=== PATIENT | male | born 1940 | race Caucasian/White ===

== ENCOUNTER 2016-06-29 13:02 | Inpatient (IN) | payer MEDICARE, BC ==
[~2016-06-29] VITALS: Ht 177.8 cm; Wt 102.5 kg
[~2016-06-29 13:02] MED LIST: *BLDWK7; /METO25TAB PO; /PANT40TA PO; /TAMS4CA PO; /TIOT18INH INH; ACET-654 PO; ACET500C; ACET65TA PO; ALBOTERNEB INHALATION; ALBUTEROL INHALATION; ALDA50TA2 PO; ALEV220C2 PO; ALEV220T22 PO; ASAC800T2 PO; ASPI325T PO; ASPI81TA45 PO; ATROVENTIN INHALATION; Asacol OR; CIPR25SS PO; CIPR500T4 OR; COLA100C2; COLA100C2 PO; COMBAER6 INH; DEMA10TA PO; DEMA20TA PO; DIGO0.126 OR; DOCU10CA PO; DOXY100T PO; DOXYCYC100 PO; FLAG500T OR; FLAG500T PO; FLOM5CAP PO; FLOMAX 0.4 PO; FLON0.05; FLONASESPR NASAL; FLOVENT110 PO; FLUT11IN; FLUT11IN INH; FLUT22IN; FURO40TA2 PO; IBUP600T26 PO; IBUP80TA PO; INSP25TA PO; INSPRA PO; K-TA10TA PO; KEFL500C7 PO; LASI40TA PO; LASI80TA OR; LOPR50TA PO; MACR100C3 PO; MILKSUS OR; MULTIVIT PO; MYLI40DR PO; NAPR250T OR; NAPROSY375 PO; NITR0.6S SL; NITR4TASL SL; OXYC1TAB55 PO; PERC5TAB8 OR; POTA10TA34 PO; PROV90AE INH; PROVENTILI PO; RANI150C PO; RANI1TAB6 PO; SPIR1CAP INH; SPIRIVA; SUDAFED30 PO; THEODUR PO; TIOT18INH INH; TORS5TAB OR; TYLE167L PO; TYLE325T5 PO; VENTAER IN; VICO5TAB; ZANT150T; ZANTAC150 PO; ZEBE5TAB OR; ZEBETA PO; ZITHROZPAK PO; ZOFR8TAB OR; [UNRECOGNIZED DRUG - CODE] PO; [UNRECOGNIZED DRUG - OTHER] PO; antibiotic PO; beano PO
[2016-06-29] MEDS ORDERED: ONDANSETRON 4MG/2ML VIAL (J2405) As Ordered ONE (15:17)
[2016-06-29] MEDS ORDERED: GASTROGRAFIN SOLUTION 30ML (Q9963) As Ordered ONE (15:17)
[2016-06-29 15:42] LABS: ALBUMIN 3.8 GM/DL (3.2-5.2); ALBUMIN/GLOBULIN RATIO 0.97 (1.00-1.93); ALKALINE PHOSPHATASE 100 U/L (45-117); ALT/SGPT 14 U/L (12-78); ANION GAP 6 MEQ/L (8-16); AST/SGOT 15 U/L (15-37); BILIRUBIN,DIRECT 0.2 MG/DL (0.0-0.2); BILIRUBIN,TOTAL 0.8 MG/DL (0.2-1.0); BLOOD UREA NITROGEN 24 MG/DL (7-18); CALCIUM LEVEL 9.3 MG/DL (8.8-10.2); CARBON DIOXIDE LEVEL 29 MEQ/L (21-32); CHLORIDE LEVEL 106 MEQ/L (98-107); CREATININE FOR GFR 1.19 MG/DL (0.70-1.30); GLOMERULAR FILTRATION RATE > 60.0 (>42); GLUCOSE, FASTING 121 MG/DL (83-110); POTASSIUM SERUM 4.3 MEQ/L (3.5-5.1); SODIUM LEVEL 141 MEQ/L (136-145); TOTAL PROTEIN 7.7 GM/DL (6.4-8.2)
[2016-06-29 15:54] LABS: INR 1.07
[2016-06-29 16:03] LABS: BASO # 0.1 K/mm3 (0.0-0.2); BASO % 0.7 % (0.0-1.0); EOS # 0.1 K/mm3 (0.0-0.50); EOS % 0.6 % (0.0-3.0); LARGE UNSTAINED CELL # 0.2 K/mm3 (0.0-0.4); LARGE UNSTAINED CELL % 1.1 % (0.0-4.0); LYMPH # 1.1 K/mm3 (1.5-4.5); LYMPH % 5.9 % (24.0-44.0); MEAN CORPUSCULAR HEMOGLOBIN 30.6 pg (27.0-33.0); MEAN CORPUSCULAR HGB CONC 33.7 g/dl (32.0-36.5); MEAN CORPUSCULAR VOLUME 90.8 fl (80.0-96.0); MONO # 1.1 K/mm3 (0.0-0.8); MONO % 6.7 % (0.0-5.0); NEUTROPHILS # 13.6 K/mm3 (1.8-7.7); NEUTROPHILS % 84.9 % (36.0-66.0); PLATELET COUNT, AUTOMATED 291 k/mm3 (150-450); RED CELL DISTRIBUTION WIDTH 13.3 % (11.5-14.5)
--- NOTE | 2016-06-29 16:17 | REP ---
Abdominal series, 06/29/2016: Indication: Exclude small bowel obstruction. PA chest, 06/29/2016: Comparison made with prior chest radiograph 08/11/2014, 07/04/2014, 06/27/2013, 04/20/2014. Findings: Cardiac silhouette is of normal size. There is ectasia and tortuosity of the ascending thoracic aorta. There are diminished lung volumes with bibasilar plate-like atelectasis and/or scarring. The bones and soft tissues within normal limits. Impression: Ectasia and tortuosity of the ascending thoracic aorta. The cardiac silhouette is of normal size. Small amount of bibasilar plate-like atelectasis and/or scarring. KUB: Scattered air fluid levels, some at differential heights are seen within the small bowel. There is moderate stool within the colon. There is no free intraperitoneal air. Surgical clips are noted in the right upper quadrant. There are moderate degenerative changes within the hips bilaterally. Impression: Findings concerning for at least partial small bowel obstruction. Further imaging may be considered if clinically indicated. No free intraperitoneal air. Signed by Siria Smith MD 06/29/2016 07:10 P
[2016-06-29] MEDS ORDERED: ISOVUE-370 76% 100ML VIAL (Q9967) As Ordered ONE (16:25)
--- NOTE | 2016-06-29 16:54 | REP ---
Clinical: Abdominal pain. Rule out small bowel obstruction. Technique: Axial contrast enhanced images from the lung bases to the pubic symphysis using oral and 100 ml Isovue 370 intravenous contrast material with coronal and sagittal re-formations. Comparison: 04/27/2014. Findings: Lung bases demonstrate small right pleural effusion and basilar atelectasis along with chronic changes and bronchiectasis. Visualized heart and pericardium normal. Moderate hiatal hernia at the gastroesophageal junction. Liver, spleen, pancreas, bilateral adrenal glands and kidneys are normal. The patient is status post cholecystectomy. Dilated fluid-filled small bowel is appreciated with collapsed loops in the right lower quadrant and early small-bowel fecal sign suggesting area of transition (images 102 - 65). Normal terminal ileum and collapsed colon with scattered diverticula noted and no evidence for acute diverticulitis. Pelvis demonstrates collapsed bladder and age appropriate prostate/seminal vesicles. No free air. No ascites. No drainable collection. Vasculature is normal. Surrounding musculoskeletal structures demonstrate age-related changes without focal osseous abnormality. Impression: 1. Evidence for small bowel obstruction with transition in the right lower quadrant to collapsed small bowel and normal caliber colon. No free air, free fluid or drainable collection. 2. Diverticulosis without acute diverticulitis. 3. Hiatal hernia. 4. Small right pleural effusion and right basilar atelectasis. Signed by Jayson Benedict MD 06/29/2016 04:46 P
[2016-06-29] MEDS ORDERED: metroNIDAZOLE/NACL 500MG(5MG/ML)100 ML BAG (S0030) As Ordered ONE (16:57)
[2016-06-29] MEDS ORDERED: CIPROFLOXACIN/D5W 400 MG/200 ML BAG (J0744) As Ordered ONE (16:57)
[2016-06-29] MEDS ORDERED: DOCU100C PO (17:30)
[2016-06-29] MEDS ORDERED: IBUPOTC PO (17:30)
[2016-06-29] MEDS: LR 1,000 ML IV SCH (18:03)
[2016-06-29] MEDS ORDERED: ACETAMINOPHEN TAB 650MG DOSE (2X325MG) PO PRN (18:15)
[2016-06-29] MEDS ORDERED: KETOROLAC 30 MG/ML VIAL (J1885) IV PRN (18:15)
[2016-06-29] MEDS ORDERED: ONDANSETRON 4MG/2ML VIAL (J2405) IV PRN (18:15)
[2016-06-29] MEDS ORDERED: KETOROLAC 30 MG/ML VIAL (J1885) As Ordered ONE (19:46)
--- NOTE | 2016-06-29 20:28 | EDDOCDS ---
Physician Documentation [facility] Name: Wyatt Stevenson Age: 76 yrs Sex: Male : 1940 Arrival Date: 06/29/2016 Time: 13:02 Bed I3 / M3 Private MD: Davon Bright NC Disposition: 06/29/16 16:57 Hospitalization ordered by Christoph Carlson for Inpatient Admission. Preliminary diagnosis is Other intestinal obstruction - SMALL BOWEL OBSTRUCTION, RIGHT SIDED. - Bed requested for 4 [place]. - Status is Inpatient Admission. dsf - Condition is Stable. - Problem is new. - Symptoms are unchanged. Historical: - Allergies: PENICILLINS (Swelling); - Home Meds: 1. Asacol 400 mg Oral TbEC 1 tab 3 times per day 2. ranitidine HCl 150 mg Oral tab 1 tab 2 times per day 3. Spiriva with HandiHaler 18 mcg Inhl CpDv 1 cap once daily 4. Stool Softener oral 1 cap once daily 5. 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 No barriers to communication noted, The patient speaks fluent Samoan. - Family history: Not pertinent. - : The pt / caregiver states he / she is not on anticoagulants. Home medication list is obtained from the patient. - Exposure Risk Screening:: None identified. Vital Signs: 06/29 13:04 BP 161 / 77; Pulse 83; Resp 18 S; Temp 96.3(O); Pulse Ox 97% on R/A; Weight 85.28 kg / gr2 188.01 lbs (R); Height 5 ft. 10 in. (177.80 cm) (R); Pain 8/10; 15:36 BP 156 / 68; Pulse 78; Resp 20; Temp 97.5; Pulse Ox 97% ; Pain 6/10; jam1 15:40 Weight 98.88 kg / 217.99 lbs (R); kr3 18:34 BP 139 / 69; Pulse 82; Resp 18; Temp 97.2; Pulse Ox 95% ; Pain 5/10; jam1 20:16 BP 151 / 83; Pulse 82; Resp 18; Temp 97.7; Pulse Ox 96% ; Pain 4/10; ajs 15:40 Body Mass Index 31.28 (98.88 kg, 177.80 cm) kr3 MDM: 14:52 Ondansetron 4 mg IVP once ordered. cc10 14:52 IV Saline Lock ordered. cc10 14:52 Undress patient appropriately for examination ordered. cc10 14:53 Basic Metabolic Profile Ordered. EDMS 14:53 CBC with Diff Ordered. EDMS 14:53 Lipase Ordered. EDMS 14:53 Liver Profile Ordered. EDMS 14:53 Partial Thromboplastin Time Ordered. EDMS 14:53 Prothrombin Time Profile\\E\\INR Ordered. EDMS 14:53 Urinalysis Ordered. EDMS 14:53 CT ABD & PELVIS: IV and Oral Contrast Ordered. EDMS 14:54 NOTHING BY MOUTH+DIET ordered. EDMS 14:59 Financial registration complete. lg 15:03 Abdomen, Flat\\E\\Upright,PA Chest Ordered. EDMS 15:17 Diatrizoate Meglumine & Sodium Liquid 10 ml PO once; mix in 290cc of water give at 3:15 kr3 ordered. 15:17 Diatrizoate Meglumine & Sodium Liquid 10 ml PO once; mix in 290cc of water give at3:45 kr3 ordered. 16:19 [facility] Payment Agreement was scanned into [employer] and attached to record. lg 16:24 Basic Metabolic Profile Reviewed. ck7 16:24 CBC with Diff Reviewed. ck7 16:24 Liver Profile Reviewed. ck7 16:24 Urinalysis Reviewed. ck7 16:24 Lipase Reviewed. ck7 16:24 Partial Thromboplastin Time Reviewed. ck7 16:24 Prothrombin Time Profile\\E\\INR Reviewed. ck7 16:53 Ciprofloxacin 400 mg IVPB at 200 mL/hr once over 60 mins ordered. ck7 16:53 metroNIDAZOLE 500 mg IV at 100 mL/hr once over 60 mins ordered. ck7 16:57 BED REQUEST+ADM ordered. EDMS 18:14 Admission / Observation Status ordered. EDMS 18:14 NPO DIET ordered. EDMS 19:32 CBC WITH DIFFERENTIAL Ordered. EDMS 19:33 BASIC METABOLIC PROFILE Ordered. EDMS 19:33 MAGNESIUM LEVEL Ordered. EDMS 19:39 LR Solution 1000 ml IV at 125 mL/hr once ordered. lf1 19:39 ketorolac 30 mg IVP once ordered. 1 Administered Medications: 15:24 Drug: Ondansetron 4 mg [ondansetron HCl 2 mg/mL intravenous solution (2 mL)] Route: kr3 IVP; Site: right antecubital; 15:53 Follow up: Response: Nausea is decreased kr3 15:24 Drug: Diatrizoate Meglumine & Sodium 10 ml [diatrizoate meglumine and diat.sodium 66 kr3 %-10 % oral solution (10 mL)] Route: PO; 15:53 Drug: Diatrizoate Meglumine & Sodium 10 ml [diatrizoate meglumine and diat.sodium 66 kr3 %-10 % oral solution (10 mL)] Route: PO; 17:21 Drug: Ciprofloxacin 400 mg [ciprofloxacin 400 mg/200 mL in 5 % dextrose intravenous kr3 piggyback] Route: IVPB; Rate: 200 mL/hr; Infused Over: 60 mins; Site: left antecubital; 18:31 Follow up: IV Status: Completed infusion [facility] 18:32 Drug: metroNIDAZOLE 500 mg [metronidazole 500 mg/100 mL-sodium chloride(iso) kr3 intravenous piggyback] Route: IV; Rate: 100 mL/hr; Infused Over: 60 mins; Site: left antecubital; 19:40 Follow up: IV Status: Completed infusion; IV Intake: 100ml [facility] 19:45 Drug: LR 1000 ml [lactated ringers intravenous solution] Route: IV; Rate: 125 mL/hr; [facility] Site: left antecubital; 20:27 Follow up: IV Status: Infusion continued upon admit [facility] 19:45 Drug: ketorolac 30 mg [ketorolac 30 mg/mL (1 mL) injection solution (1 mL)] Route: IVP; [facility] Site: left antecubital; Signatures: Dispatcher [employer] Ngoc Stout Reg Reg lg Robie, KathleenRN RN linda3 Michelle Valentin RN RN lf1 Amy Mcdowell RN RN rs3 Hannah Raymundo RN RN dsf Florencio Akins, RPA-C [id number] Zain Thompson PA-C PA-C cc10 Johanny Linn RN RN sls2 The chart was reviewed and I authenticate all verbal orders and agree with the evaluation and treatment provided.Corrections: (The following items were deleted from the chart) 17:24 16:53 NG Tube, 18Fr ordered. ck7 kr3 Attachments: 16:19 [facility] Payment Agreement lg MTDD
--- NOTE | 2016-06-29 20:29 | EDDOCDS ---
Nurse's Notes [facility] Name: Wyatt Stevenson Age: 76 yrs Sex: Male : 1940 Arrival Date: 06/29/2016 Time: 13:02 Bed I3 / M3 Private MD: Davon Bright NCFM Diagnosis: Other intestinal obstruction-SMALL BOWEL OBSTRUCTION, RIGHT SIDED Presentation: 06/29 13:06 Presenting complaint: Patient states: Constipation, abdominal pain today. Adult Sepsis rs3 Screening: The patient does not have new or worsening altered mentation. Patient's respiratory rate is less than 22. Systolic blood pressure is greater than 100. Patient has a qSOFA score of 0- Negative Sepsis Screen. Suicide/Homicide risk assessment- the patient denies having any suicidal and/or homicidal ideations and does not present with any other emotional, behavioral or mental health complaints. Status: Patient is not a return to service inspector or dependent. Transition of care: patient was not received from another setting of care. 13:06 Method Of Arrival: Walkin/Carried/Asstd rs3 13:06 Acuity: MICHAEL Level 3 rs3 Triage Assessment: 13:08 General: Appears in no apparent distress. Pain: Location: right lower quadrant and left rs3 lower quadrant. GI: Reports lower abdominal pain. Historical: - Allergies: PENICILLINS (Swelling); - Home Meds: 1. Asacol 400 mg Oral TbEC 1 tab 3 times per day 2. ranitidine HCl 150 mg Oral tab 1 tab 2 times per day 3. Spiriva with HandiHaler 18 mcg Inhl CpDv 1 cap once daily 4. Stool Softener oral 1 cap once daily 5. 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 No barriers to communication noted, The patient speaks fluent Greenlandic. - Family history: Not pertinent. - : The pt / caregiver states he / she is not on anticoagulants. Home medication list is obtained from the patient. - Exposure Risk Screening:: None identified. Screenin:07 Screening information is obtained from the patient. Primary language is Greenlandic. Fall jam1 risk: No risks identified. Assistance ADL's: requires no assistance with activities of daily living. Abuse/DV Screen: The patient / caregiver reports he/she is: not in a situation that causes fear, pain or injury. Nutritional screening: No deficits noted. Exposure Risk Screening: None identified. Advance Directives: Currently, there is a health care proxy, jonn guzman sister in law of pt. 20:20 home support is adequate. dsf Assessment: 15:15 General: Appears uncomfortable, Behavior is appropriate for age, cooperative. Pain: kr3 Location: abdomen Pain currently is 9 out of 10 on a pain scale. Neurological: No deficits noted. GI: Abdomen is distended, Last BM was June 29, 2016. Bowel sounds diminished in right upper quadrant, left upper quadrant, right lower quadrant and left lower quadrant Abd is tender to palpation X 4 quads. Reports nausea. Derm: Skin is pink, warm & dry. 16:39 General: Appears uncomfortable. Pain: Location: abdomen Pain currently is 8 out of 10 kr3 on a pain scale. 17:22 Reassessment: patient reports he and Dr Carlson agree no NG tube at this time. Patient kr3 will inform staff if and when he feels he needs one place, Patient reports feeling better at this time. 18:30 Reassessment: reports rolled on bed felt increase of pain and vomited moderate amount. kr3 Continues to state no NG at this time. Pain 5/10. Sitting in chair. Patient aware of bed status. 19:54 General: Appears uncomfortable, Behavior is cooperative. Pain: Location: abdomen Pain lf1 currently is 6 out of 10 on a pain scale. Neurological: Level of Consciousness is awake, alert, Oriented to person, place, time. EENT: No deficits noted. Respiratory: Respiratory effort is even, unlabored. GI: Abdomen is distended, Reports lower abdominal pain, upper abdominal pain. Derm: Skin is normal. 19:54 GI: NGT in place, to suction. lf1 20:19 General: Appears in no apparent distress, comfortable, Behavior is appropriate for age, dsf cooperative. Pain: Location: left lower quadrant and right lower quadrant Pain currently is 4 out of 10 on a pain scale. Neurological: Level of Consciousness is awake, alert. Cardiovascular: Capillary refill < 3 seconds. Respiratory: Airway is patent Respiratory effort is even, unlabored, Respiratory pattern is regular, symmetrical. GI: NGT in place, to suction. Derm: Skin is pink, warm & dry. Vital Signs: 13:04 BP 161 / 77; Pulse 83; Resp 18 S; Temp 96.3(O); Pulse Ox 97% on R/A; Weight 85.28 kg gr2 (R); Height 5 ft. 10 in. (177.80 cm) (R); Pain 8/10; 15:36 BP 156 / 68; Pulse 78; Resp 20; Temp 97.5; Pulse Ox 97% ; Pain 6/10; jam1 15:40 Weight 98.88 kg (R); kr3 18:34 BP 139 / 69; Pulse 82; Resp 18; Temp 97.2; Pulse Ox 95% ; Pain 5/10; jam1 20:16 BP 151 / 83; Pulse 82; Resp 18; Temp 97.7; Pulse Ox 96% ; Pain 4/10; ajs 15:40 Body Mass Index 31.28 (98.88 kg, 177.80 cm) kr3 Vitals: 13:04 Log In Time: June 29, 2016 at 13:04. gr2 ED Course: 13:04 Patient visited by Nathaly Bruno. gr2 13:04 Davon Bright is Private Physician. gr2 13:04 Patient moved to Waiting gr2 13:05 Patient visited by Nathaly Bruno. gr2 13:05 Patient moved to Pre RCE gr2 13:07 Triage Initiated rs3 14:13 Patient moved to Triage 3 jrd 14:19 Patient visited by Belén King RN. mk4 14:50 Zain Thompson PA-C is PHCP. cc10 14:50 Fabian Cobos MD is Attending Physician. cc10 14:50 Patient visited by Zain Thompson PA-C. cc10 14:50 Patient visited by Zain Thompson PA-C. cc10 14:56 Patient moved to I3 / M3 mk4 15:06 Pt greeted and oriented to ED. Patient advised of names of staff involved in care, jam1 location of call schultz, wait times and NPO status. Patient has correct armband on for positive identification. Bed in low position. Call light in reach. Side rails up X 1. Adult w/ patient. Door closed. 15:14 Basic Metabolic Profile Sent. kr3 15:14 CBC with Diff Sent. kr3 15:14 Lipase Sent. kr3 15:14 Liver Profile Sent. kr3 15:14 Partial Thromboplastin Time Sent. kr3 15:14 Prothrombin Time Profile\\E\\INR Sent. kr3 15:14 Urinalysis Sent. kr3 15:15 Inserted saline lock: 20 gauge in right antecubital area and blood collected. The kr3 patient tolerated the procedure well. 15:24 Patient visited by Renuka Kaur RN. kr3 16:02 PHCP role handed off by Zain Thompson PA-C ck7 16:02 Florencio Akins RPA-C is PHCP. ck7 16:02 Patient visited by Florencio Akins RPA-C. ck7 16:19 [facility] Payment Agreement was scanned into [employer] and attached to record. lg 16:38 Patient visited by Renuka Kaur RN. kr3 16:40 The patient / caregiver is instructed regarding the plan of care and ED course. kr3 16:45 Abdomen, Flat\\E\\Upright,PA Chest Returned. EDMS 16:56 Christoph Carlson DO is Hospitalizing Provider. ck7 17:23 No procedures done that require assistance. kr3 17:33 CT ABD & PELVIS: IV and Oral Contrast Returned. EDMS 18:35 Patient visited by Gia Bill PCA. jam1 19:02 NGT inserted 18 Fr. via left nare. Placement verified. to intermittent suction. Patient kr3 tolerated well. 19:56 Patient visited by Michelle Valentin RN. lf1 Administered Medications: 15:24 Drug: Ondansetron 4 mg [ondansetron HCl 2 mg/mL intravenous solution (2 mL)] Route: kr3 IVP; Site: right antecubital; 15:53 Follow up: Response: Nausea is decreased kr3 15:24 Drug: Diatrizoate Meglumine & Sodium 10 ml [diatrizoate meglumine and diat.sodium 66 kr3 %-10 % oral solution (10 mL)] Route: PO; 15:53 Drug: Diatrizoate Meglumine & Sodium 10 ml [diatrizoate meglumine and diat.sodium 66 kr3 %-10 % oral solution (10 mL)] Route: PO; 17:21 Drug: Ciprofloxacin 400 mg [ciprofloxacin 400 mg/200 mL in 5 % dextrose intravenous kr3 piggyback] Route: IVPB; Rate: 200 mL/hr; Infused Over: 60 mins; Site: left antecubital; 18:31 Follow up: IV Status: Completed infusion kr3 18:32 Drug: metroNIDAZOLE 500 mg [metronidazole 500 mg/100 mL-sodium chloride(iso) kr3 intravenous piggyback] Route: IV; Rate: 100 mL/hr; Infused Over: 60 mins; Site: left antecubital; 19:40 Follow up: IV Status: Completed infusion; IV Intake: 100ml lf1 19:45 Drug: LR 1000 ml [lactated ringers intravenous solution] Route: IV; Rate: 125 mL/hr; lf1 Site: left antecubital; 20:27 Follow up: IV Status: Infusion continued upon admit dsf 19:45 Drug: ketorolac 30 mg [ketorolac 30 mg/mL (1 mL) injection solution (1 mL)] Route: IVP; lf1 Site: left antecubital; Intake: 19:40 IV: 100.00ml; Total: 100.00ml. lf1 Output: 18:55 Gastric: 600.00ml (Emesis); Total: 600.00ml. dsf 20:20 Gastric: 400.00ml (NGT); Total: 1000.00ml. dsf Order Results: Lab Order: Basic Metabolic Profile; [facility]' 06/29/16 15:11 Test: GLUCOSE, FASTING; Value: 121; Range: 83-110; Abnormal: Above high normal; Units: MG/DL; Status: F Test: BLOOD UREA NITROGEN; Value: 24; Range: 7-18; Abnormal: Above high normal; Units: MG/DL; Status: F Test: CREATININE FOR GFR; Value: 1.19; Range: 0.70-1.30; Units: MG/DL; Status: F Test: GLOMERULAR FILTRATION RATE; Value: > 60.0; Range: >42; Status: F Test: SODIUM LEVEL; Value: 141; Range: 136-145; Units: MEQ/L; Status: F Test: POTASSIUM SERUM; Value: 4.3; Range: 3.5-5.1; Units: MEQ/L; Status: F Test: CHLORIDE LEVEL; Value: 106; Range: 98-107; Units: MEQ/L; Status: F Test: CARBON DIOXIDE LEVEL; Value: 29; Range: 21-32; Units: MEQ/L; Status: F Test: ANION GAP; Value: 6; Range: 8-16; Abnormal: Below low normal; Units: MEQ/L; Status: F Test: CALCIUM LEVEL; Value: 9.3; Range: 8.8-10.2; Units: MG/DL; Status: F Test Note: ; Units are mL/min/1.73 m2 Chronic Kidney Disease Staging per NKF: Stage I & II GFR >=60 Normal to Mildly Decreased Stage III GFR 30-59 Moderately Decreased Stage IV GFR 15-29 Severely Decreased Stage V GFR <15 Very Little GFR Left ESRD GFR <15 on [employer] Lab Order: CBC with Diff; SPEC'M 06/29/16 15:11 Test: WHITE BLOOD COUNT; Value: 16.0; Range: 4.0-10.0; Abnormal: Above high normal; Units: K/mm3; Status: F Test: RED BLOOD COUNT; Value: 4.85; Range: 4.30-6.10; Units: M/mm3; Status: F Test: HEMOGLOBIN; Value: 14.8; Range: 14.0-18.0; Units: g/dl; Status: F Test: HEMATOCRIT; Value: 44.0; Range: 42.0-52.0; Units: %; Status: F Test: MEAN CORPUSCULAR VOLUME; Value: 90.8; Range: 80.0-96.0; Units: fl; Status: F Test: MEAN CORPUSCULAR HEMOGLOBIN; Value: 30.6; Range: 27.0-33.0; Units: pg; Status: F Test: MEAN CORPUSCULAR HGB CONC; Value: 33.7; Range: 32.0-36.5; Units: g/dl; Status: F Test: RED CELL DISTRIBUTION WIDTH; Value: 13.3; Range: 11.5-14.5; Units: %; Status: F Test: PLATELET COUNT, AUTOMATED; Value: 291; Range: 150-450; Units: k/mm3; Status: F Test: NEUTROPHILS %; Value: 84.9; Range: 36.0-66.0; Abnormal: Above high normal; Units: %; Status: F Test: LYMPH %; Value: 5.9; Range: 24.0-44.0; Abnormal: Below low normal; Units: %; Status: F Test: MONO %; Value: 6.7; Range: 0.0-5.0; Abnormal: Above high normal; Units: %; Status: F Test: EOS %; Value: 0.6; Range: 0.0-3.0; Units: %; Status: F Test: BASO %; Value: 0.7; Range: 0.0-1.0; Units: %; Status: F Test: LARGE UNSTAINED CELL %; Value: 1.1; Range: 0.0-4.0; Units: %; Status: F Test: NEUTROPHILS #; Value: 13.6; Range: 1.8-7.7; Abnormal: Above high normal; Units: K/mm3; Status: F Test: LYMPH #; Value: 1.1; Range: 1.5-4.5; Abnormal: Below low normal; Units: K/mm3; Status: F Test: MONO #; Value: 1.1; Range: 0.0-0.8; Abnormal: Above high normal; Units: K/mm3; Status: F Test: EOS #; Value: 0.1; Range: 0.0-0.50; Units: K/mm3; Status: F Test: BASO #; Value: 0.1; Range: 0.0-0.2; Units: K/mm3; Status: F Test: LARGE UNSTAINED CELL #; Value: 0.2; Range: 0.0-0.4; Units: K/mm3; Status: F Lab Order: Lipase; SPEC'M 06/29/16 15:11 Test: LIPASE; Value: 118; Range: 73-393; Units: U/L; Status: F Lab Order: Liver Profile; SPEC'M 06/29/16 15:11 Test: AST/SGOT; Value: 15; Range: 15-37; Units: U/L; Status: F Test: ALT/SGPT; Value: 14; Range: 12-78; Units: U/L; Status: F Test: ALKALINE PHOSPHATASE; Value: 100; Range: 45-117; Units: U/L; Status: F Test: BILIRUBIN,TOTAL; Value: 0.8; Range: 0.2-1.0; Units: MG/DL; Status: F Test: BILIRUBIN,DIRECT; Value: 0.2; Range: 0.0-0.2; Units: MG/DL; Status: F Test: TOTAL PROTEIN; Value: 7.7; Range: 6.4-8.2; Units: GM/DL; Status: F Test: ALBUMIN; Value: 3.8; Range: 3.2-5.2; Units: GM/DL; Status: F Test: ALBUMIN/GLOBULIN RATIO; Value: 0.97; Range: 1.00-1.93; Abnormal: Below low normal; Status: F Lab Order: Partial Thromboplastin Time; SPEC' 06/29/16 15:11 Test: PARTIAL THROMBOPLASTIN TIME; Value: 27.5; Range: 26.6-37.1; Units: SECONDS; Status: F Lab Order: Prothrombin Time Profile\\E\\INR; SPEC' 06/29/16 15:11 Test: PROTHROMBIN TIME; Value: 14.0; Range: 12.3-14.5; Units: SECONDS; Status: F Test: INR; Value: 1.07; Status: F Test Note: ; THERAPUTIC HUMAN INR VALUES INDICATIONS NORMAL RANGES PROPHYLAXIS/TREATMENT OF: VENOUS THROMBOSIS 2.0-3.0 PULMONARY EMBOLISM 2.0-3.0 PREVENTION OF SYSTEMIC EMBOLISM FROM: TISSUE HEART VALVES 2.0-3.0 ACUTE MYOCARDIAL INFARCTION 2.0-3.0 VALVULAR HEART DISEASE 2.0-3.0 ATRIAL FIBRILLATION 2.0-3.0 MECHANICAL VALVES(HIGH RISK) 2.5-3.5 RECURRENT MYOCARDIAL INFARCTION 2.5-3.5 Lab Order: Urinalysis; SPEC'M 06/29/16 15:11 Test: APPEARANCE, URINE; Value: TURBID; Range: CLEAR; Abnormal: Above high normal; Status: F Test: COLOR, URINE; Value: SATHISH; Range: YELLOW; Status: F Test: PH,URINE; Value: 5.0; Range: 5.0-9.0; Units: UNITS; Status: F Test: SPECIFIC GRAVITY URINE AUTO; Value: 1.032; Range: 1.002-1.035; Status: F Test: PROTEIN, URINE AUTO; Value: 1+; Range: NEGATIVE; Abnormal: Above high normal; Units: mg/dL; Status: F Test: GLUCOSE, URINE (UA) AUTO; Value: NEGATIVE; Range: NEGATIVE; Units: mg/dL; Status: F Test: KETONE, URINE AUTO; Value: TRACE; Range: NEGATIVE; Abnormal: Above high normal; Units: mg/dL; Status: F Test: UROBILINOGEN, URINE AUTO; Value: 2.0; Range: 0.0-2.0; Abnormal: Above high normal; Units: mg/dL; Status: F Test: BILIRUBIN, URINE AUTO; Value: 1+; Range: NEGATIVE; Abnormal: Above high normal; Status: F Test: NITRITE, URINE AUTO; Value: NEGATIVE; Range: NEGATIVE; Status: F Test: LEUKOCYTE ESTERASE, URINE AUTO; Value: NEGATIVE; Range: NEGATIVE; Status: F Test: BLOOD, URINE BLOOD; Value: 1+; Range: NEGATIVE; Abnormal: Above high normal; Status: F Test: WBC, URINE AUTO; Value: 2; Range: 0-3; Units: /HPF; Status: F Test: RBC, URINE AUTO; Value: 10; Range: 0-3; Abnormal: Above high normal; Units: /HPF; Status: F Test: BACTERIA, URINE AUTO; Value: 1+; Range: NEGATIVE; Abnormal: Above high normal; Status: F Test: SQUAMOUS EPITHELIAL CELL UR AU; Value: 1; Range: 0-6; Units: /HPF; Status: F Test: MUCUS, URINE; Value: LARGE; Range: NEGATIVE; Status: F Test: HYALINE CAST, URINE AUTO; Value: 0; Range: 0-1; Units: /LPF; Status: F Test: AMORPHOUS SEDIMENT; Value: SMALL; Range: NEGATIVE; Abnormal: Above high normal; Status: F Radiology Order: CT ABD & PELVIS: IV and Oral Contrast Test: CT ABD & PELVIS: IV and Oral Contrast REASON FOR EXAMINATION: r/o SBO; Clinical: Abdominal pain. Rule out small bowel obstruction.; ; Technique: Axial contrast enhanced images from the lung bases to the pubic; symphysis using oral and 100 ml Isovue 370 intravenous contrast material with; coronal and sagittal re-formations.; ; Comparison: 04/27/2014.; ; Findings:; Lung bases demonstrate small right pleural effusion and basilar atelectasis along; with chronic changes and bronchiectasis. Visualized heart and pericardium; normal. Moderate hiatal hernia at the gastroesophageal junction.; ; Liver, spleen, pancreas, bilateral adrenal glands and kidneys are normal. The; patient is status post cholecystectomy. Dilated fluid-filled small bowel is; appreciated with collapsed loops in the right lower quadrant and early; small-bowel fecal sign suggesting area of transition (images 102 - 65). Normal; terminal ileum and collapsed colon with scattered diverticula noted and no; evidence for acute diverticulitis. Pelvis demonstrates collapsed bladder and age; appropriate prostate/seminal vesicles. No free air. No ascites. No drainable; collection. Vasculature is normal. Surrounding musculoskeletal structures; demonstrate age-related changes without focal osseous abnormality.; ; Impression:; 1. Evidence for small bowel obstruction with transition in the right lower; quadrant to collapsed small bowel and normal caliber colon. No free air, free; fluid or drainable collection.; 2. Diverticulosis without acute diverticulitis.; 3. Hiatal hernia.; 4. Small right pleural effusion and right basilar atelectasis.; ; ; ; ; Signed by; Jayson Benedict MD 06/29/2016 04:46 P; Radiology Order: Abdomen, Flat\\E\\Upright,PA Chest Test: Abdomen, Flat\\E\\Upright,PA Chest REASON FOR EXAMINATION: r/o SBO; Abdominal series, 06/29/2016:; ; Indication: Exclude small bowel obstruction.; ; PA chest, 06/29/2016:; ; Comparison made with prior chest radiograph 08/11/2014, 07/04/2014, 06/27/2013,; 04/20/2014.; ; Findings: Cardiac silhouette is of normal size. There is ectasia and tortuosity; of the ascending thoracic aorta. There are diminished lung volumes with; bibasilar plate-like atelectasis and/or scarring. The bones and soft tissues; within normal limits.; ; Impression:; ; Ectasia and tortuosity of the ascending thoracic aorta. The cardiac silhouette; is of normal size.; ; Small amount of bibasilar plate-like atelectasis and/or scarring.; ; KUB:; ; Scattered air fluid levels, some at differential heights are seen within the; small bowel. There is moderate stool within the colon. There is no free; intraperitoneal air.; ; Surgical clips are noted in the right upper quadrant. There are moderate; degenerative changes within the hips bilaterally.; ; Impression:; ; Findings concerning for at least partial small bowel obstruction. Further; imaging may be considered if clinically indicated. No free intraperitoneal air.; ; ; ; ; Signed by; Siria Smith MD 06/29/2016 07:10 P; Outcome: 16:38 CT Study completed. kr3 16:57 Decision to Hospitalize by Provider. ck7 20:20 Discharge Assessment: Patient awake, alert and oriented x 3. No cognitive and/or dsf functional deficits noted. Patient verbalized understanding of disposition instructions. patient administered narcotics - yes. Patient was admitted to the hospital or transferred to another facility. The following High Risk Discharge criteria are identified: None. Admitted to Med/Surg accompanied by tech, via stretcher, with chart. Condition: stable. Property :Personal belongings accompany Pt. 20:27 Patient left the ED. dsf Signatures: Dispatcher [employer] EDMS Gia Bill, [employer] APPLIANCE TECH WHITE [employer] APPLIANCE TECH jam1 Ngoc Reno, Reg Reg lg Renuka Kaur,RN RN linda3 Michelle Valentin,RN RN lf1 Amy Mcdowell,RN RN rs3 Hannah Raymundo,RN RN dsf Salima Joaquin Christopher, RPA-C RPA-Cck7 Nathaly Bruno gr2 Belén King, RN RN mk4 Zain Thompson, PA-C PA-C cc10 Laureano Hicks, [employer]ITE [employer] APPLIANCE TECH WHITE [employer] APPLIANCE TECH jrd Corrections: (The following items were deleted from the chart) 14:29 13:06 Acuity: MICHAEL Level 4 rs3 rs3 MTDD
[2016-06-29 20:33] VITALS: BP 142/79
[2016-06-29] MEDS: HEPARIN SOD (PORCINE) 5000 UNITS/ML VIAL SC SCH (21:44)
[2016-06-30] MEDS: metroNIDAZOLE 500 MG in APPROPRIATE DILUENT 1 EA IV SCH ×5 (00:06→23:22)
[2016-06-30] MEDS: CIPROFLOXACIN 400 MG in APPROPRIATE DILUENT 1 EA IV SCH ×2 (04:43→17:27)
[2016-06-30 06:00] VITALS: BP 140/75
[2016-06-30] MEDS: HEPARIN SOD (PORCINE) 5000 UNITS/ML VIAL SC SCH ×3 (06:16→21:17)
[2016-06-30 06:17] LABS: BASO % 0.3 % (0.0-1.0); EOS # 0.1 K/mm3 (0.0-0.50); EOS % 0.8 % (0.0-3.0); LARGE UNSTAINED CELL # 0.2 K/mm3 (0.0-0.4); LARGE UNSTAINED CELL % 1.9 % (0.0-4.0); LYMPH # 0.9 K/mm3 (1.5-4.5); LYMPH % 6.2 % (24.0-44.0); MEAN CORPUSCULAR HEMOGLOBIN 30.7 pg (27.0-33.0); MEAN CORPUSCULAR HGB CONC 34.4 g/dl (32.0-36.5); MEAN CORPUSCULAR VOLUME 89.2 fl (80.0-96.0); MONO # 0.9 K/mm3 (0.0-0.8); MONO % 8.2 % (0.0-5.0); NEUTROPHILS # 8.7 K/mm3 (1.8-7.7); NEUTROPHILS % 82.6 % (36.0-66.0); PLATELET COUNT, AUTOMATED 224 k/mm3 (150-450); RED CELL DISTRIBUTION WIDTH 13.3 % (11.5-14.5); WHITE BLOOD COUNT 10.5 K/mm3 (4.0-10.0)
[2016-06-30] MEDS: LR 1,000 ML IV SCH ×3 (06:17→17:27)
[2016-06-30 06:27] LABS: CALCIUM LEVEL 8.5 MG/DL (8.8-10.2); CREATININE FOR GFR 1.27 MG/DL (0.70-1.30); GLOMERULAR FILTRATION RATE 58.4 (>42); POTASSIUM SERUM 4.1 MEQ/L (3.5-5.1)
[2016-06-30] MEDS: TIOTROPIUM INHALER/CAPSULE (SPIRIVA) INH SCH (08:16)
[2016-06-30] MEDS: PANTOPRAZOLE 40MG INJ (PROTONIX) (C9113) IV SCH (08:48)
[2016-06-30] MEDS: MESALAMINE 400 MG CAPSULE DELAYED RELEASE (DELZICOL) PO SCH (08:49)
--- NOTE | 2016-06-30 09:43 | HPE ---
DATE OF ADMISSION: 06/29/2016 Chief complaint is abdominal distention. HISTORY OF PRESENT ILLNESS: Patient is a 76-year-old male, history of multiple small bowel obstructions in the past. He has had a history of laparoscopic cholecystectomy as well as robotic prostatectomy in the past. A couple of years ago he also underwent bowel surgery with a small resection for small bowel obstructions. Since then, he has had at least one other hospitalization where he has been treated with his bowel obstruction with nasogastric (NG) tube decompression. For the past 24 hours, actually it is 2 a.m. today, he was woken up from sleep with abdominal pains, cramping. Pain got worse and distention got worse throughout the day. He had a little bit of nausea and vomiting. Finally, he decided to come to the emergency room for evaluation. CT scan does confirm the positive bowel obstruction again. He did have a bowel movement yesterday. PAST MEDICAL HISTORY: 1. Chronic obstructive pulmonary disease (COPD). 2. Small bowel obstruction. PAST SURGICAL HISTORY: 1. Cardiac ablation. 2. Exploratory laparotomy. 3. Carpal tunnel repair. 4. Robotic prostatectomy. SOCIAL HISTORY: Denies any current drug, alcohol or tobacco abuse. ALLERGIES: PENICILLIN. HOME MEDICATIONS: - Asacol - ranitidine - Spiriva - stool softener - ibuprofen REVIEW OF SYSTEMS: Pertinent positives negative, otherwise stated in the history of present illness (HPI). PHYSICAL EXAMINATION: In general, alert and oriented times three, no acute stress Vital signs stable, afebrile. HEENT: Pupils equal, round, react to light and accommodation. Heart: S1, S2. Regular rate and rhythm. Lungs: Clear to auscultation bilaterally. Abdomen: Soft. Distended. Diffuse tenderness to palpation. No rebound, guarding or rigidity. Bowel sounds are absent. Extremities: No clubbing, cyanosis or edema. LABORATORY DATA: White count 16, hemoglobin 14.8, platelets 291. Sodium 141, potassium 4.3, creatinine 1.19. IMAGING: CT abdomen and pelvis shows evidence for small bowel obstruction with transition in the right lower quadrant to collapse small bowel and normal colon. No signs of free air, free fluid or drainable collections. There is diverticulosis without acute diverticulitis. Small right pleural effusion and right basilar atelectasis. ASSESSMENT AND PLAN: Patient is a 76-year-old male with signs of partial versus complete small bowel obstruction in the right lower quadrant. Currently, patient is non-peritoneal. We will attempt to treat with NG tube decompression. This is likely secondary to an adhesion. Patient already feels like his pain has improved since he has been to the emergency room (ER). He is holding off on NG tube at this time, but says that if he develops emesis overnight he will have the nurses place it for him. We will continue to monitor him symptomatically with intravenous (IV) fluids and decompression for the next 72 hours. If there is no improvement, then he will likely need to be taken to the operating room after 72 hours for exploration and possible relieve of the obstruction.
[2016-06-30 14:00] VITALS: BP 159/72
[2016-06-30 22:00] VITALS: BP 160/74
[2016-07-01] MEDS: LR 1,000 ML IV SCH ×2 (04:39→13:00)
[2016-07-01] MEDS: CIPROFLOXACIN 400 MG in APPROPRIATE DILUENT 1 EA IV SCH ×2 (04:39→17:15)
[2016-07-01 06:00] VITALS: BP 123/67
[2016-07-01] MEDS: HEPARIN SOD (PORCINE) 5000 UNITS/ML VIAL SC SCH ×3 (06:01→21:53)
[2016-07-01] MEDS: metroNIDAZOLE 500 MG in APPROPRIATE DILUENT 1 EA IV SCH ×4 (06:02→23:31)
[2016-07-01 06:25] LABS: BASO % 0.1 % (0.0-1.0); EOS # 0.1 K/mm3 (0.0-0.50); EOS % 2.3 % (0.0-3.0); LARGE UNSTAINED CELL # 0.2 K/mm3 (0.0-0.4); LARGE UNSTAINED CELL % 3.3 % (0.0-4.0); LYMPH # 0.6 K/mm3 (1.5-4.5); LYMPH % 11.2 % (24.0-44.0); MEAN CORPUSCULAR HEMOGLOBIN 30.5 pg (27.0-33.0); MEAN CORPUSCULAR HGB CONC 33.7 g/dl (32.0-36.5); MEAN CORPUSCULAR VOLUME 90.4 fl (80.0-96.0); MONO # 0.4 K/mm3 (0.0-0.8); MONO % 8.1 % (0.0-5.0); NEUTROPHILS % 74.8 % (36.0-66.0); PLATELET COUNT, AUTOMATED 189 k/mm3 (150-450); RED CELL DISTRIBUTION WIDTH 12.2 % (11.5-14.5); WHITE BLOOD COUNT 5.3 K/mm3 (4.0-10.0)
[2016-07-01 06:54] LABS: ANION GAP 8 MEQ/L (8-16); BLOOD UREA NITROGEN 25 MG/DL (7-18); CALCIUM LEVEL 7.8 MG/DL (8.8-10.2); CARBON DIOXIDE LEVEL 27 MEQ/L (21-32); CHLORIDE LEVEL 108 MEQ/L (98-107); CREATININE FOR GFR 1.18 MG/DL (0.70-1.30); GLOMERULAR FILTRATION RATE > 60.0 (>42); GLUCOSE, FASTING 115 MG/DL (83-110); MAGNESIUM LEVEL 1.9 MG/DL (1.8-2.4); POTASSIUM SERUM 3.9 MEQ/L (3.5-5.1); SODIUM LEVEL 143 MEQ/L (136-145)
[2016-07-01] MEDS: TIOTROPIUM INHALER/CAPSULE (SPIRIVA) INH SCH (07:12)
[2016-07-01] MEDS ORDERED: PREVNAR 13 VACCINE SYRINGE (CPT CODE:90670) IM SCH (09:00)
[2016-07-01] MEDS: MESALAMINE 400 MG CAPSULE DELAYED RELEASE (DELZICOL) PO SCH (09:39)
[2016-07-01] MEDS: PANTOPRAZOLE 40MG INJ (PROTONIX) (C9113) IV SCH (09:40)
[2016-07-01 10:36] VITALS: BP 138/58
--- NOTE | 2016-07-01 11:28 | REP ---
Clinical: Follow up. Small bowel obstruction. Comparison: 06/29/2016. Technique: Upright view the chest with supine and upright views of the abdomen and pelvis. Findings: Upright view of the chest demonstrates bibasilar atelectasis and small right pleural effusion. A nasogastric tube is identified which extends to the gastroesophageal junction and may warrant advancement. No pneumothorax. Supine upright views of the abdomen and pelvis demonstrate mildly distended small bowel with a few air-fluid levels suggesting the possibility of small bowel obstruction versus enteritis. Evidence for prior cholecystectomy. No organomegaly. Skeletal structures stable. Impression: 1. Lung bases suggest bibasilar atelectasis and small right pleural effusion. 2. Few small bowel air-fluid levels with distended small bowel suggesting enteritis versus small bowel obstruction. Signed by Jayson Benedict MD 07/01/2016 11:19 A
[2016-07-01 13:48] VITALS: BP 157/72
--- NOTE | 2016-07-01 21:28 | EDDOCDS ---
Physician Documentation [facility] Name: Wyatt Stevenson Age: 76 yrs Sex: Male : 1940 Arrival Date: 06/29/2016 Time: 13:02 Bed I3 / M3 Private MD: Davon Bright [place] Disposition: 06/29/16 16:57 Hospitalization ordered by Christoph Carlson for Inpatient Admission. Preliminary diagnosis is Other intestinal obstruction - SMALL BOWEL OBSTRUCTION, RIGHT SIDED. - Bed requested for 4 [place]. - Status is Inpatient Admission. dsf - Condition is Stable. - Problem is new. - Symptoms are unchanged. Historical: - Allergies: PENICILLINS (Swelling); - Home Meds: 1. Asacol 400 mg Oral TbEC 1 tab 3 times per day 2. ranitidine HCl 150 mg Oral tab 1 tab 2 times per day 3. Spiriva with HandiHaler 18 mcg Inhl CpDv 1 cap once daily 4. Stool Softener oral 1 cap once daily 5. 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 No barriers to communication noted, The patient speaks fluent [place]. - Family history: Not pertinent. - : The pt / caregiver states he / she is not on anticoagulants. Home medication list is obtained from the patient. - Exposure Risk Screening:: None identified. Vital Signs: 06/29 13:04 BP 161 / 77; Pulse 83; Resp 18 S; Temp 96.3(O); Pulse Ox 97% on R/A; Weight 85.28 kg / gr2 188.01 lbs (R); Height 5 ft. 10 in. (177.80 cm) (R); Pain 8/10; 15:36 BP 156 / 68; Pulse 78; Resp 20; Temp 97.5; Pulse Ox 97% ; Pain 6/10; jam1 15:40 Weight 98.88 kg / 217.99 lbs (R); kr3 18:34 BP 139 / 69; Pulse 82; Resp 18; Temp 97.2; Pulse Ox 95% ; Pain 5/10; jam1 20:16 BP 151 / 83; Pulse 82; Resp 18; Temp 97.7; Pulse Ox 96% ; Pain 4/10; ajs 15:40 Body Mass Index 31.28 (98.88 kg, 177.80 cm) kr3 MDM: 14:52 Ondansetron 4 mg IVP once ordered. cc10 14:52 IV Saline Lock ordered. cc10 14:52 Undress patient appropriately for examination ordered. cc10 14:53 Basic Metabolic Profile Ordered. EDMS 14:53 CBC with Diff Ordered. EDMS 14:53 Lipase Ordered. EDMS 14:53 Liver Profile Ordered. EDMS 14:53 Partial Thromboplastin Time Ordered. EDMS 14:53 Prothrombin Time Profile\\E\\INR Ordered. EDMS 14:53 Urinalysis Ordered. EDMS 14:53 CT ABD & PELVIS: IV and Oral Contrast Ordered. EDMS 14:54 NOTHING BY MOUTH+DIET ordered. EDMS 14:59 Financial registration complete. lg 15:03 Abdomen, Flat\\E\\Upright,PA Chest Ordered. EDMS 15:17 Diatrizoate Meglumine & Sodium Liquid 10 ml PO once; mix in 290cc of water give at 3:15 kr3 ordered. 15:17 Diatrizoate Meglumine & Sodium Liquid 10 ml PO once; mix in 290cc of water give at3:45 kr3 ordered. 16:19 [facility] [place] was [place] into [employer] and attached to record. lg 16:24 Basic Metabolic Profile Reviewed. ck7 16:24 CBC with Diff Reviewed. ck7 16:24 Liver Profile Reviewed. ck7 16:24 Urinalysis Reviewed. ck7 16:24 Lipase Reviewed. ck7 16:24 Partial Thromboplastin Time Reviewed. ck7 16:24 Prothrombin Time Profile\\E\\INR Reviewed. ck7 16:53 Ciprofloxacin 400 mg IVPB at 200 mL/hr once over 60 mins ordered. ck7 16:53 metroNIDAZOLE 500 mg IV at 100 mL/hr once over 60 mins ordered. ck7 16:57 BED REQUEST+ADM ordered. EDMS 18:14 Admission / Observation Status ordered. EDMS 18:14 NPO DIET ordered. EDMS 19:32 CBC WITH DIFFERENTIAL Ordered. EDMS 19:33 BASIC METABOLIC PROFILE Ordered. EDMS 19:33 MAGNESIUM LEVEL Ordered. EDMS 19:39 LR Solution 1000 ml IV at 125 mL/hr once ordered. lf1 19:39 ketorolac 30 mg IVP once ordered. 1 06/30 10:20 T-Sheet-- Draft Copy was scanned into [employer] and attached to record. gb Administered Medications: 06/29 15:24 Drug: Ondansetron 4 mg [ondansetron HCl 2 mg/mL intravenous solution (2 mL)] Route: kr3 IVP; Site: right antecubital; 15:53 Follow up: Response: Nausea is decreased kr3 15:24 Drug: Diatrizoate Meglumine & Sodium 10 ml [diatrizoate meglumine and diat.sodium 66 kr3 %-10 % oral solution (10 mL)] Route: PO; 15:53 Drug: Diatrizoate Meglumine & Sodium 10 ml [diatrizoate meglumine and diat.sodium 66 kr3 %-10 % oral solution (10 mL)] Route: PO; 17:21 Drug: Ciprofloxacin 400 mg [ciprofloxacin 400 mg/200 mL in 5 % dextrose intravenous kr3 piggyback] Route: IVPB; Rate: 200 mL/hr; Infused Over: 60 mins; Site: left antecubital; 18:31 Follow up: IV Status: Completed infusion kr3 18:32 Drug: metroNIDAZOLE 500 mg [metronidazole 500 mg/100 mL-sodium chloride(iso) kr3 intravenous piggyback] Route: IV; Rate: 100 mL/hr; Infused Over: 60 mins; Site: left antecubital; 19:40 Follow up: IV Status: Completed infusion; IV Intake: 100ml 1 19:45 Drug: LR 1000 ml [lactated ringers intravenous solution] Route: IV; Rate: 125 mL/hr; 1 Site: left antecubital; 20:27 Follow up: IV Status: Infusion continued upon admit [facility] 19:45 Drug: ketorolac 30 mg [ketorolac 30 mg/mL (1 mL) injection solution (1 mL)] Route: IVP; 1 Site: left antecubital; Signatures: Dispatcher MedHo EDMS Ina Grace, Reg Reg gb Ngoc Reno, Reg Reg lg Renuka Kaur,WILIAN RN kr3 Michelle Valentin RN RN lf1 Amy Mcdowell RN RN rs3 Hannah Raymundo RN RN Florencio Maldonado, RPA-C [id number] Zain Thompson PA-C PA-C cc10 Johanny Lnin, RN RN sls2 The chart was reviewed and I authenticate all verbal orders and agree with the evaluation and treatment provided.Corrections: (The following items were deleted from the chart) 17:24 16:53 NG Tube, 18Fr ordered. ck7 kr3 Attachments: 16:19 [facility] [place] Agreement lg 06/30 10:20 T-Sheet-- Draft Copy gb Chart Complete MTDD
--- NOTE | 2016-07-01 21:28 | EDDOCDS ---
Physician Documentation [facility] Name: Wyatt Stevenson Age: 76 yrs Sex: Male : 1940 Arrival Date: 06/29/2016 Time: 13:02 Bed I3 / M3 Private MD: Davon Bright NC Disposition: 06/29/16 16:57 Hospitalization ordered by Christoph Carlson for Inpatient Admission. Preliminary diagnosis is Other intestinal obstruction - SMALL BOWEL OBSTRUCTION, RIGHT SIDED. - Bed requested for 4 [place]. - Status is Inpatient Admission. dsf - Condition is Stable. - Problem is new. - Symptoms are unchanged. Historical: - Allergies: PENICILLINS (Swelling); - Home Meds: 1. Asacol 400 mg Oral TbEC 1 tab 3 times per day 2. ranitidine HCl 150 mg Oral tab 1 tab 2 times per day 3. Spiriva with HandiHaler 18 mcg Inhl CpDv 1 cap once daily 4. Stool Softener oral 1 cap once daily 5. 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 No barriers to communication noted, The patient speaks fluent [place]. - Family history: Not pertinent. - : The pt / caregiver states he / she is not on anticoagulants. Home medication list is obtained from the patient. - Exposure Risk Screening:: None identified. Vital Signs: 06/29 13:04 BP 161 / 77; Pulse 83; Resp 18 S; Temp 96.3(O); Pulse Ox 97% on R/A; Weight 85.28 kg / gr2 188.01 lbs (R); Height 5 ft. 10 in. (177.80 cm) (R); Pain 8/10; 15:36 BP 156 / 68; Pulse 78; Resp 20; Temp 97.5; Pulse Ox 97% ; Pain 6/10; jam1 15:40 Weight 98.88 kg / 217.99 lbs (R); kr3 18:34 BP 139 / 69; Pulse 82; Resp 18; Temp 97.2; Pulse Ox 95% ; Pain 5/10; jam1 20:16 BP 151 / 83; Pulse 82; Resp 18; Temp 97.7; Pulse Ox 96% ; Pain 4/10; ajs 15:40 Body Mass Index 31.28 (98.88 kg, 177.80 cm) kr3 MDM: 14:52 Ondansetron 4 mg IVP once ordered. cc10 14:52 IV Saline Lock ordered. cc10 14:52 Undress patient appropriately for examination ordered. cc10 14:53 Basic Metabolic Profile Ordered. EDMS 14:53 CBC with Diff Ordered. EDMS 14:53 Lipase Ordered. EDMS 14:53 Liver Profile Ordered. EDMS 14:53 Partial Thromboplastin Time Ordered. EDMS 14:53 Prothrombin Time Profile\\E\\INR Ordered. EDMS 14:53 Urinalysis Ordered. EDMS 14:53 CT ABD & PELVIS: IV and Oral Contrast Ordered. EDMS 14:54 NOTHING BY MOUTH+DIET ordered. EDMS 14:59 Financial registration complete. lg 15:03 Abdomen, Flat\\E\\Upright,PA Chest Ordered. EDMS 15:17 Diatrizoate Meglumine & Sodium Liquid 10 ml PO once; mix in 290cc of water give at 3:15 kr3 ordered. 15:17 Diatrizoate Meglumine & Sodium Liquid 10 ml PO once; mix in 290cc of water give at3:45 kr3 ordered. 16:19 [facility] [place] Payment Agreement was scanned into [employer] and attached to record. lg 16:24 Basic Metabolic Profile Reviewed. ck7 16:24 CBC with Diff Reviewed. ck7 16:24 Liver Profile Reviewed. ck7 16:24 Urinalysis Reviewed. ck7 16:24 Lipase Reviewed. ck7 16:24 Partial Thromboplastin Time Reviewed. ck7 16:24 Prothrombin Time Profile\\E\\INR Reviewed. ck7 16:53 Ciprofloxacin 400 mg IVPB at 200 mL/hr once over 60 mins ordered. ck7 16:53 metroNIDAZOLE 500 mg IV at 100 mL/hr once over 60 mins ordered. ck7 16:57 BED REQUEST+ADM ordered. EDMS 18:14 Admission / Observation Status ordered. EDMS 18:14 NPO DIET ordered. EDMS 19:32 CBC WITH DIFFERENTIAL Ordered. EDMS 19:33 BASIC METABOLIC PROFILE Ordered. EDMS 19:33 MAGNESIUM LEVEL Ordered. EDMS 19:39 LR Solution 1000 ml IV at 125 mL/hr once ordered. lf1 19:39 ketorolac 30 mg IVP once ordered. 1 06/30 10:20 T-Sheet-- Draft Copy was scanned into [employer] and attached to record. gb Administered Medications: 06/29 15:24 Drug: Ondansetron 4 mg [ondansetron HCl 2 mg/mL intravenous solution (2 mL)] Route: kr3 IVP; Site: right antecubital; 15:53 Follow up: Response: Nausea is decreased kr3 15:24 Drug: Diatrizoate Meglumine & Sodium 10 ml [diatrizoate meglumine and diat.sodium 66 kr3 %-10 % oral solution (10 mL)] Route: PO; 15:53 Drug: Diatrizoate Meglumine & Sodium 10 ml [diatrizoate meglumine and diat.sodium 66 kr3 %-10 % oral solution (10 mL)] Route: PO; 17:21 Drug: Ciprofloxacin 400 mg [ciprofloxacin 400 mg/200 mL in 5 % dextrose intravenous kr3 piggyback] Route: IVPB; Rate: 200 mL/hr; Infused Over: 60 mins; Site: left antecubital; 18:31 Follow up: IV Status: Completed infusion kr3 18:32 Drug: metroNIDAZOLE 500 mg [metronidazole 500 mg/100 mL-sodium chloride(iso) kr3 intravenous piggyback] Route: IV; Rate: 100 mL/hr; Infused Over: 60 mins; Site: left antecubital; 19:40 Follow up: IV Status: Completed infusion; IV Intake: 100ml 1 19:45 Drug: LR 1000 ml [lactated ringers intravenous solution] Route: IV; Rate: 125 mL/hr; 1 Site: left antecubital; 20:27 Follow up: IV Status: Infusion continued upon admit [facility] 19:45 Drug: ketorolac 30 mg [ketorolac 30 mg/mL (1 mL) injection solution (1 mL)] Route: IVP; 1 Site: left antecubital; Signatures: Dispatcher MedHo EDMS Ina Grace, Reg Reg gb Ngoc [place], Reg Reg lg Renuka Kaur,WILIAN RN kr3 Michelle Valentin RN RN lf1 Amy Mcdowell RN RN rs3 Hannah Raymundo RN RN Florencio Maldonado, RPA-C [id number] Zain Thompson PA-C PA-C cc10 Johanny Linn, RN RN sls2 The chart was reviewed and I authenticate all verbal orders and agree with the evaluation and treatment provided.Corrections: (The following items were deleted from the chart) 17:24 16:53 NG Tube, 18Fr ordered. ck7 kr3 Attachments: 16:19 [facility] [place] Payment Agreement lg 06/30 10:20 T-Sheet-- Draft Copy gb Chart Complete MTDD
--- NOTE | 2016-07-01 21:28 | EDDOCDS ---
Nurse's Notes [facility] Name: Wyatt Stevenson Age: 76 yrs Sex: Male : 1940 Arrival Date: 06/29/2016 Time: 13:02 Bed I3 / M3 Private MD: Davon Bright NCFM Diagnosis: Other intestinal obstruction-SMALL BOWEL OBSTRUCTION, RIGHT SIDED Presentation: 06/29 13:06 Presenting complaint: Patient states: Constipation, abdominal pain today. Adult Sepsis rs3 Screening: The patient does not have new or worsening altered mentation. Patient's respiratory rate is less than 22. Systolic blood pressure is greater than 100. Patient has a qSOFA score of 0- Negative Sepsis Screen. Suicide/Homicide risk assessment- the patient denies having any suicidal and/or homicidal ideations and does not present with any other emotional, behavioral or mental health complaints. Status: Patient is not a environmental services technician or dependent. Transition of care: patient was not received from another setting of care. 13:06 Method Of Arrival: Walkin/Carried/Asstd rs3 13:06 Acuity: MICHAEL Level 3 rs3 Triage Assessment: 13:08 General: Appears in no apparent distress. Pain: Location: right lower quadrant and left rs3 lower quadrant. GI: Reports lower abdominal pain. Historical: - Allergies: PENICILLINS (Swelling); - Home Meds: 1. Asacol 400 mg Oral TbEC 1 tab 3 times per day 2. ranitidine HCl 150 mg Oral tab 1 tab 2 times per day 3. Spiriva with HandiHaler 18 mcg Inhl CpDv 1 cap once daily 4. Stool Softener oral 1 cap once daily 5. 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 No barriers to communication noted, The patient speaks fluent Hungarian. - Family history: Not pertinent. - : The pt / caregiver states he / she is not on anticoagulants. Home medication list is obtained from the patient. - Exposure Risk Screening:: None identified. Screenin:07 Screening information is obtained from the patient. Primary language is Hungarian. Fall jam1 risk: No risks identified. Assistance ADL's: requires no assistance with activities of daily living. Abuse/DV Screen: The patient / caregiver reports he/she is: not in a situation that causes fear, pain or injury. Nutritional screening: No deficits noted. Exposure Risk Screening: None identified. Advance Directives: Currently, there is a health care proxy, jonn guzman sister in law of pt. 20:20 home support is adequate. dsf Assessment: 15:15 General: Appears uncomfortable, Behavior is appropriate for age, cooperative. Pain: kr3 Location: abdomen Pain currently is 9 out of 10 on a pain scale. Neurological: No deficits noted. GI: Abdomen is distended, Last BM was June 29, 2016. Bowel sounds diminished in right upper quadrant, left upper quadrant, right lower quadrant and left lower quadrant Abd is tender to palpation X 4 quads. Reports nausea. Derm: Skin is pink, warm & dry. 16:39 General: Appears uncomfortable. Pain: Location: abdomen Pain currently is 8 out of 10 kr3 on a pain scale. 17:22 Reassessment: patient reports he and Dr Carlson agree no NG tube at this time. Patient kr3 will inform staff if and when he feels he needs one place, Patient reports feeling better at this time. 18:30 Reassessment: reports rolled on bed felt increase of pain and vomited moderate amount. kr3 Continues to state no NG at this time. Pain 5/10. Sitting in chair. Patient aware of bed status. 19:54 General: Appears uncomfortable, Behavior is cooperative. Pain: Location: abdomen Pain lf1 currently is 6 out of 10 on a pain scale. Neurological: Level of Consciousness is awake, alert, Oriented to person, place, time. EENT: No deficits noted. Respiratory: Respiratory effort is even, unlabored. GI: Abdomen is distended, Reports lower abdominal pain, upper abdominal pain. Derm: Skin is normal. 19:54 GI: NGT in place, to suction. lf1 20:19 General: Appears in no apparent distress, comfortable, Behavior is appropriate for age, dsf cooperative. Pain: Location: left lower quadrant and right lower quadrant Pain currently is 4 out of 10 on a pain scale. Neurological: Level of Consciousness is awake, alert. Cardiovascular: Capillary refill < 3 seconds. Respiratory: Airway is patent Respiratory effort is even, unlabored, Respiratory pattern is regular, symmetrical. GI: NGT in place, to suction. Derm: Skin is pink, warm & dry. Vital Signs: 13:04 BP 161 / 77; Pulse 83; Resp 18 S; Temp 96.3(O); Pulse Ox 97% on R/A; Weight 85.28 kg gr2 (R); Height 5 ft. 10 in. (177.80 cm) (R); Pain 8/10; 15:36 BP 156 / 68; Pulse 78; Resp 20; Temp 97.5; Pulse Ox 97% ; Pain 6/10; jam1 15:40 Weight 98.88 kg (R); kr3 18:34 BP 139 / 69; Pulse 82; Resp 18; Temp 97.2; Pulse Ox 95% ; Pain 5/10; jam1 20:16 BP 151 / 83; Pulse 82; Resp 18; Temp 97.7; Pulse Ox 96% ; Pain 4/10; ajs 15:40 Body Mass Index 31.28 (98.88 kg, 177.80 cm) kr3 Vitals: 13:04 Log In Time: June 29, 2016 at 13:04. gr2 ED Course: 13:04 Patient visited by Nathaly Bruno. gr2 13:04 Davon Bright is Private Physician. gr2 13:04 Patient moved to Waiting gr2 13:05 Patient visited by Nathaly Bruno. gr2 13:05 Patient moved to Pre RCE gr2 13:07 Triage Initiated rs3 14:13 Patient moved to Triage 3 jrd 14:19 Patient visited by Belén King RN. mk4 14:50 Zain Thompson PA-C is PHCP. cc10 14:50 Fabian Cobos MD is Attending Physician. cc10 14:50 Patient visited by Zain Thompson PA-C. cc10 14:50 Patient visited by Zain Thompson PA-C. cc10 14:56 Patient moved to I3 / M3 mk4 15:06 Pt greeted and oriented to ED. Patient advised of names of staff involved in care, jam1 location of call schultz, wait times and NPO status. Patient has correct armband on for positive identification. Bed in low position. Call light in reach. Side rails up X 1. Adult w/ patient. Door closed. 15:14 Basic Metabolic Profile Sent. kr3 15:14 CBC with Diff Sent. kr3 15:14 Lipase Sent. kr3 15:14 Liver Profile Sent. kr3 15:14 Partial Thromboplastin Time Sent. kr3 15:14 Prothrombin Time Profile\\E\\INR Sent. kr3 15:14 Urinalysis Sent. kr3 15:15 Inserted saline lock: 20 gauge in right antecubital area and blood collected. The kr3 patient tolerated the procedure well. 15:24 Patient visited by Renuka Kaur RN. kr3 16:02 PHCP role handed off by Zain Thompson PA-C ck7 16:02 Florencio Akins RPA-C is PHCP. ck7 16:02 Patient visited by Florencio Akins RPA-C. ck7 16:19 [facility] Payment Agreement was scanned into [employer] and attached to record. lg 16:38 Patient visited by Renuka Kaur RN. kr3 16:40 The patient / caregiver is instructed regarding the plan of care and ED course. kr3 16:45 Abdomen, Flat\\E\\Upright,PA Chest Returned. EDMS 16:56 Christoph Carlson DO is Hospitalizing Provider. ck7 17:23 No procedures done that require assistance. kr3 17:33 CT ABD & PELVIS: IV and Oral Contrast Returned. EDMS 18:35 Patient visited by Gia Bill PCA. jam1 19:02 NGT inserted 18 Fr. via left nare. Placement verified. to intermittent suction. Patient kr3 tolerated well. 19:56 Patient visited by Michelle Valentin RN. lf1 06/30 10:20 T-Sheet-- Draft Copy was scanned into [employer] and attached to record. gb Administered Medications: 06/29 15:24 Drug: Ondansetron 4 mg [ondansetron HCl 2 mg/mL intravenous solution (2 mL)] Route: kr3 IVP; Site: right antecubital; 15:53 Follow up: Response: Nausea is decreased kr3 15:24 Drug: Diatrizoate Meglumine & Sodium 10 ml [diatrizoate meglumine and diat.sodium 66 kr3 %-10 % oral solution (10 mL)] Route: PO; 15:53 Drug: Diatrizoate Meglumine & Sodium 10 ml [diatrizoate meglumine and diat.sodium 66 kr3 %-10 % oral solution (10 mL)] Route: PO; 17:21 Drug: Ciprofloxacin 400 mg [ciprofloxacin 400 mg/200 mL in 5 % dextrose intravenous kr3 piggyback] Route: IVPB; Rate: 200 mL/hr; Infused Over: 60 mins; Site: left antecubital; 18:31 Follow up: IV Status: Completed infusion kr3 18:32 Drug: metroNIDAZOLE 500 mg [metronidazole 500 mg/100 mL-sodium chloride(iso) kr3 intravenous piggyback] Route: IV; Rate: 100 mL/hr; Infused Over: 60 mins; Site: left antecubital; 19:40 Follow up: IV Status: Completed infusion; IV Intake: 100ml lf1 19:45 Drug: LR 1000 ml [lactated ringers intravenous solution] Route: IV; Rate: 125 mL/hr; lf1 Site: left antecubital; 20:27 Follow up: IV Status: Infusion continued upon admit dsf 19:45 Drug: ketorolac 30 mg [ketorolac 30 mg/mL (1 mL) injection solution (1 mL)] Route: IVP; lf1 Site: left antecubital; Intake: 19:40 IV: 100.00ml; Total: 100.00ml. lf1 Output: 18:55 Gastric: 600.00ml (Emesis); Total: 600.00ml. dsf 20:20 Gastric: 400.00ml (NGT); Total: 1000.00ml. dsf Order Results: Lab Order: Basic Metabolic Profile; SPEC'M 06/29/16 15:11 Test: GLUCOSE, FASTING; Value: 121; Range: 83-110; Abnormal: Above high normal; Units: MG/DL; Status: F Test: BLOOD UREA NITROGEN; Value: 24; Range: 7-18; Abnormal: Above high normal; Units: MG/DL; Status: F Test: CREATININE FOR GFR; Value: 1.19; Range: 0.70-1.30; Units: MG/DL; Status: F Test: GLOMERULAR FILTRATION RATE; Value: > 60.0; Range: >42; Status: F Test: SODIUM LEVEL; Value: 141; Range: 136-145; Units: MEQ/L; Status: F Test: POTASSIUM SERUM; Value: 4.3; Range: 3.5-5.1; Units: MEQ/L; Status: F Test: CHLORIDE LEVEL; Value: 106; Range: 98-107; Units: MEQ/L; Status: F Test: CARBON DIOXIDE LEVEL; Value: 29; Range: 21-32; Units: MEQ/L; Status: F Test: ANION GAP; Value: 6; Range: 8-16; Abnormal: Below low normal; Units: MEQ/L; Status: F Test: CALCIUM LEVEL; Value: 9.3; Range: 8.8-10.2; Units: MG/DL; Status: F Test Note: ; Units are mL/min/1.73 m2 Chronic Kidney Disease Staging per NKF: Stage I & II GFR >=60 Normal to Mildly Decreased Stage III GFR 30-59 Moderately Decreased Stage IV GFR 15-29 Severely Decreased Stage V GFR <15 Very Little GFR Left ESRD GFR <15 on RESEARCH ATTORNEY Lab Order: CBC with Diff; SPEC'M 06/29/16 15:11 Test: WHITE BLOOD COUNT; Value: 16.0; Range: 4.0-10.0; Abnormal: Above high normal; Units: K/mm3; Status: F Test: RED BLOOD COUNT; Value: 4.85; Range: 4.30-6.10; Units: M/mm3; Status: F Test: HEMOGLOBIN; Value: 14.8; Range: 14.0-18.0; Units: g/dl; Status: F Test: HEMATOCRIT; Value: 44.0; Range: 42.0-52.0; Units: %; Status: F Test: MEAN CORPUSCULAR VOLUME; Value: 90.8; Range: 80.0-96.0; Units: fl; Status: F Test: MEAN CORPUSCULAR HEMOGLOBIN; Value: 30.6; Range: 27.0-33.0; Units: pg; Status: F Test: MEAN CORPUSCULAR HGB CONC; Value: 33.7; Range: 32.0-36.5; Units: g/dl; Status: F Test: RED CELL DISTRIBUTION WIDTH; Value: 13.3; Range: 11.5-14.5; Units: %; Status: F Test: PLATELET COUNT, AUTOMATED; Value: 291; Range: 150-450; Units: k/mm3; Status: F Test: NEUTROPHILS %; Value: 84.9; Range: 36.0-66.0; Abnormal: Above high normal; Units: %; Status: F Test: LYMPH %; Value: 5.9; Range: 24.0-44.0; Abnormal: Below low normal; Units: %; Status: F Test: MONO %; Value: 6.7; Range: 0.0-5.0; Abnormal: Above high normal; Units: %; Status: F Test: EOS %; Value: 0.6; Range: 0.0-3.0; Units: %; Status: F Test: BASO %; Value: 0.7; Range: 0.0-1.0; Units: %; Status: F Test: LARGE UNSTAINED CELL %; Value: 1.1; Range: 0.0-4.0; Units: %; Status: F Test: NEUTROPHILS #; Value: 13.6; Range: 1.8-7.7; Abnormal: Above high normal; Units: K/mm3; Status: F Test: LYMPH #; Value: 1.1; Range: 1.5-4.5; Abnormal: Below low normal; Units: K/mm3; Status: F Test: MONO #; Value: 1.1; Range: 0.0-0.8; Abnormal: Above high normal; Units: K/mm3; Status: F Test: EOS #; Value: 0.1; Range: 0.0-0.50; Units: K/mm3; Status: F Test: BASO #; Value: 0.1; Range: 0.0-0.2; Units: K/mm3; Status: F Test: LARGE UNSTAINED CELL #; Value: 0.2; Range: 0.0-0.4; Units: K/mm3; Status: F Lab Order: Lipase; SPEC'M 06/29/16 15:11 Test: LIPASE; Value: 118; Range: 73-393; Units: U/L; Status: F Lab Order: Liver Profile; SPEC'M 06/29/16 15:11 Test: AST/SGOT; Value: 15; Range: 15-37; Units: U/L; Status: F Test: ALT/SGPT; Value: 14; Range: 12-78; Units: U/L; Status: F Test: ALKALINE PHOSPHATASE; Value: 100; Range: 45-117; Units: U/L; Status: F Test: BILIRUBIN,TOTAL; Value: 0.8; Range: 0.2-1.0; Units: MG/DL; Status: F Test: BILIRUBIN,DIRECT; Value: 0.2; Range: 0.0-0.2; Units: MG/DL; Status: F Test: TOTAL PROTEIN; Value: 7.7; Range: 6.4-8.2; Units: GM/DL; Status: F Test: ALBUMIN; Value: 3.8; Range: 3.2-5.2; Units: GM/DL; Status: F Test: ALBUMIN/GLOBULIN RATIO; Value: 0.97; Range: 1.00-1.93; Abnormal: Below low normal; Status: F Lab Order: Partial Thromboplastin Time; [facility]' 06/29/16 15:11 Test: PARTIAL THROMBOPLASTIN TIME; Value: 27.5; Range: 26.6-37.1; Units: SECONDS; Status: F Lab Order: Prothrombin Time Profile\\E\\INR; [facility] 06/29/16 15:11 Test: PROTHROMBIN TIME; Value: 14.0; Range: 12.3-14.5; Units: SECONDS; Status: F Test: INR; Value: 1.07; Status: F Test Note: ; THERAPUTIC HUMAN INR VALUES INDICATIONS NORMAL RANGES PROPHYLAXIS/TREATMENT OF: VENOUS THROMBOSIS 2.0-3.0 PULMONARY EMBOLISM 2.0-3.0 PREVENTION OF SYSTEMIC EMBOLISM FROM: TISSUE HEART VALVES 2.0-3.0 ACUTE MYOCARDIAL INFARCTION 2.0-3.0 VALVULAR HEART DISEASE 2.0-3.0 ATRIAL FIBRILLATION 2.0-3.0 MECHANICAL VALVES(HIGH RISK) 2.5-3.5 RECURRENT MYOCARDIAL INFARCTION 2.5-3.5 Lab Order: Urinalysis; SPEC 06/29/16 15:11 Test: APPEARANCE, URINE; Value: TURBID; Range: CLEAR; Abnormal: Above high normal; Status: F Test: COLOR, URINE; Value: SATHISH; Range: YELLOW; Status: F Test: PH,URINE; Value: 5.0; Range: 5.0-9.0; Units: UNITS; Status: F Test: SPECIFIC GRAVITY URINE AUTO; Value: 1.032; Range: 1.002-1.035; Status: F Test: PROTEIN, URINE AUTO; Value: 1+; Range: NEGATIVE; Abnormal: Above high normal; Units: mg/dL; Status: F Test: GLUCOSE, URINE (UA) AUTO; Value: NEGATIVE; Range: NEGATIVE; Units: mg/dL; Status: F Test: KETONE, URINE AUTO; Value: TRACE; Range: NEGATIVE; Abnormal: Above high normal; Units: mg/dL; Status: F Test: UROBILINOGEN, URINE AUTO; Value: 2.0; Range: 0.0-2.0; Abnormal: Above high normal; Units: mg/dL; Status: F Test: BILIRUBIN, URINE AUTO; Value: 1+; Range: NEGATIVE; Abnormal: Above high normal; Status: F Test: NITRITE, URINE AUTO; Value: NEGATIVE; Range: NEGATIVE; Status: F Test: LEUKOCYTE ESTERASE, URINE AUTO; Value: NEGATIVE; Range: NEGATIVE; Status: F Test: BLOOD, URINE BLOOD; Value: 1+; Range: NEGATIVE; Abnormal: Above high normal; Status: F Test: WBC, URINE AUTO; Value: 2; Range: 0-3; Units: /HPF; Status: F Test: RBC, URINE AUTO; Value: 10; Range: 0-3; Abnormal: Above high normal; Units: /HPF; Status: F Test: BACTERIA, URINE AUTO; Value: 1+; Range: NEGATIVE; Abnormal: Above high normal; Status: F Test: SQUAMOUS EPITHELIAL CELL UR AU; Value: 1; Range: 0-6; Units: /HPF; Status: F Test: MUCUS, URINE; Value: LARGE; Range: NEGATIVE; Status: F Test: HYALINE CAST, URINE AUTO; Value: 0; Range: 0-1; Units: /LPF; Status: F Test: AMORPHOUS SEDIMENT; Value: SMALL; Range: NEGATIVE; Abnormal: Above high normal; Status: F Radiology Order: CT ABD & PELVIS: IV and Oral Contrast Test: CT ABD & PELVIS: IV and Oral Contrast REASON FOR EXAMINATION: r/o SBO; Clinical: Abdominal pain. Rule out small bowel obstruction.; ; Technique: Axial contrast enhanced images from the lung bases to the pubic; symphysis using oral and 100 ml Isovue 370 intravenous contrast material with; coronal and sagittal re-formations.; ; Comparison: 04/27/2014.; ; Findings:; Lung bases demonstrate small right pleural effusion and basilar atelectasis along; with chronic changes and bronchiectasis. Visualized heart and pericardium; normal. Moderate hiatal hernia at the gastroesophageal junction.; ; Liver, spleen, pancreas, bilateral adrenal glands and kidneys are normal. The; patient is status post cholecystectomy. Dilated fluid-filled small bowel is; appreciated with collapsed loops in the right lower quadrant and early; small-bowel fecal sign suggesting area of transition (images 102 - 65). Normal; terminal ileum and collapsed colon with scattered diverticula noted and no; evidence for acute diverticulitis. Pelvis demonstrates collapsed bladder and age; appropriate prostate/seminal vesicles. No free air. No ascites. No drainable; collection. Vasculature is normal. Surrounding musculoskeletal structures; demonstrate age-related changes without focal osseous abnormality.; ; Impression:; 1. Evidence for small bowel obstruction with transition in the right lower; quadrant to collapsed small bowel and normal caliber colon. No free air, free; fluid or drainable collection.; 2. Diverticulosis without acute diverticulitis.; 3. Hiatal hernia.; 4. Small right pleural effusion and right basilar atelectasis.; ; ; ; ; Signed by; Jayson Benedict MD 06/29/2016 04:46 P; Radiology Order: Abdomen, Flat\\E\\Upright,PA Chest Test: Abdomen, Flat\\E\\Upright,PA Chest REASON FOR EXAMINATION: r/o SBO; Abdominal series, 06/29/2016:; ; Indication: Exclude small bowel obstruction.; ; PA chest, 06/29/2016:; ; Comparison made with prior chest radiograph 08/11/2014, 07/04/2014, 06/27/2013,; 04/20/2014.; ; Findings: Cardiac silhouette is of normal size. There is ectasia and tortuosity; of the ascending thoracic aorta. There are diminished lung volumes with; bibasilar plate-like atelectasis and/or scarring. The bones and soft tissues; within normal limits.; ; Impression:; ; Ectasia and tortuosity of the ascending thoracic aorta. The cardiac silhouette; is of normal size.; ; Small amount of bibasilar plate-like atelectasis and/or scarring.; ; KUB:; ; Scattered air fluid levels, some at differential heights are seen within the; small bowel. There is moderate stool within the colon. There is no free; intraperitoneal air.; ; Surgical clips are noted in the right upper quadrant. There are moderate; degenerative changes within the hips bilaterally.; ; Impression:; ; Findings concerning for at least partial small bowel obstruction. Further; imaging may be considered if clinically indicated. No free intraperitoneal air.; ; ; ; ; Signed by; Siria Smith MD 06/29/2016 07:10 P; Outcome: 16:38 CT Study completed. kr3 16:57 Decision to Hospitalize by Provider. ck7 20:20 Discharge Assessment: Patient awake, alert and oriented x 3. No cognitive and/or dsf functional deficits noted. Patient verbalized understanding of disposition instructions. patient administered narcotics - yes. Patient was admitted to the hospital or transferred to another facility. The following High Risk Discharge criteria are identified: None. Admitted to Med/Surg accompanied by tech, via stretcher, with chart. Condition: stable. Property :Personal belongings accompany Pt. 20:27 Patient left the ED. dsf Signatures: Dispatcher [employer] EDMS Gia Bill, LAUNDRY SUPERINTENDENT LAUNDRY SUPERINTENDENT jam1 Ina Grace, Reg Reg gb Ngoc Reno, Reg Reg lg Renuka Kaur,RN RN linda3 Michelle Valentin,RN RN lf1 Amy Mcdowell,RN RN rs3 Hannah Raymundo,WILIAN RN dsf Salima Joaquin Christopher, RPA-C RPA-Cck7 Nathaly Bruno gr2 Belén King RN RN mk4 Zain Thompson PAPeteC PA-C cc10 Laureano Hicks, LAUNDRY SUPERINTENDENT LAUNDRY SUPERINTENDENT jrd Corrections: (The following items were deleted from the chart) 14:29 13:06 Acuity: MICHAEL Level 4 rs3 rs3 Chart Complete MTDD
[2016-07-01 22:00] VITALS: BP 141/67
[2016-07-02] MEDS: LR 1,000 ML IV SCH ×2 (02:03→02:26)
[2016-07-02] MEDS: CIPROFLOXACIN 400 MG in APPROPRIATE DILUENT 1 EA IV SCH ×2 (04:38→17:09)
[2016-07-02] MEDS: metroNIDAZOLE 500 MG in APPROPRIATE DILUENT 1 EA IV SCH ×4 (05:51→23:42)
[2016-07-02] MEDS: HEPARIN SOD (PORCINE) 5000 UNITS/ML VIAL SC SCH ×3 (05:52→21:56)
[2016-07-02 06:00] VITALS: BP 141/70
[2016-07-02 06:05] LABS: BASO % 0.2 % (0.0-1.0); EOS # 0.1 K/mm3 (0.0-0.50); EOS % 0.9 % (0.0-3.0); LARGE UNSTAINED CELL # 0.2 K/mm3 (0.0-0.4); LARGE UNSTAINED CELL % 2.6 % (0.0-4.0); LYMPH # 0.6 K/mm3 (1.5-4.5); LYMPH % 7.7 % (24.0-44.0); MEAN CORPUSCULAR HEMOGLOBIN 30.5 pg (27.0-33.0); MEAN CORPUSCULAR HGB CONC 33.4 g/dl (32.0-36.5); MEAN CORPUSCULAR VOLUME 91.4 fl (80.0-96.0); MONO # 0.6 K/mm3 (0.0-0.8); MONO % 7.9 % (0.0-5.0); NEUTROPHILS # 6.5 K/mm3 (1.8-7.7); NEUTROPHILS % 80.8 % (36.0-66.0); PLATELET COUNT, AUTOMATED 191 k/mm3 (150-450); RED CELL DISTRIBUTION WIDTH 12.2 % (11.5-14.5); WHITE BLOOD COUNT 8.1 K/mm3 (4.0-10.0)
[2016-07-02 06:34] LABS: ANION GAP 12 MEQ/L (8-16); BLOOD UREA NITROGEN 18 MG/DL (7-18); CALCIUM LEVEL 7.8 MG/DL (8.8-10.2); CARBON DIOXIDE LEVEL 23 MEQ/L (21-32); CHLORIDE LEVEL 106 MEQ/L (98-107); CREATININE FOR GFR 1.05 MG/DL (0.70-1.30); GLOMERULAR FILTRATION RATE > 60.0 (>42); GLUCOSE, FASTING 112 MG/DL (83-110); MAGNESIUM LEVEL 1.8 MG/DL (1.8-2.4); POTASSIUM SERUM 3.8 MEQ/L (3.5-5.1); SODIUM LEVEL 141 MEQ/L (136-145)
[2016-07-02] MEDS: TIOTROPIUM INHALER/CAPSULE (SPIRIVA) INH SCH (07:09)
[2016-07-02] MEDS ORDERED: LEVALBUTEROL 1.25 MG/0.5 ML CONCENTRATE NEB As Ordered ONE (08:27)
[2016-07-02 08:29] VITALS: BP 223/117
--- NOTE | 2016-07-02 08:55 | REP ---
Clinical: Shortness of breath. Comparison: 07/01/2016. Findings: This mediastinum and cardiac silhouette are stable. Stable bibasilar pleuroparenchymal changes are again noted and may represent chronic change with superimposed atelectasis and small right pleural effusion. No new acute process identified. No pneumothorax. The skeletal structures are stable. Impression: Similar bibasilar pleuroparenchymal changes may represent acute on chronic change. Signed by Jayson Benedict MD 07/02/2016 08:46 A
--- NOTE | 2016-07-02 08:57 | REP ---
Clinical: Nasogastric tube removal. Technique: Portable supine view of the abdomen and pelvis. Findings: Bowel gas pattern is nonspecific. Evidence for prior cholecystectomy. No nasogastric tube is identified. Skeletal structures are intact. Impression: Nonspecific bowel gas pattern. No nasogastric tube identified. Signed by Jayson Benedict MD 07/02/2016 08:48 A
[2016-07-02] MEDS: PANTOPRAZOLE 40MG INJ (PROTONIX) (C9113) IV SCH (09:29)
[2016-07-02] MEDS: MESALAMINE 400 MG CAPSULE DELAYED RELEASE (DELZICOL) PO SCH (09:30)
[2016-07-02] MEDS: MOM 30ML SUSPENSION UDC PO SCH (09:43)
[2016-07-02 14:00] VITALS: BP 144/64
[2016-07-02 22:00] VITALS: BP 133/61
[2016-07-03] MEDS: CIPROFLOXACIN 400 MG in APPROPRIATE DILUENT 1 EA IV SCH (04:00)
[2016-07-03 06:00] VITALS: BP 139/60
[2016-07-03] MEDS: HEPARIN SOD (PORCINE) 5000 UNITS/ML VIAL SC SCH (06:07)
[2016-07-03] MEDS: metroNIDAZOLE 500 MG in APPROPRIATE DILUENT 1 EA IV SCH (06:07)
[2016-07-03 06:17] LABS: EOS # 0.2 K/mm3 (0.0-0.50); LARGE UNSTAINED CELL # 0.2 K/mm3 (0.0-0.4); LARGE UNSTAINED CELL % 3.3 % (0.0-4.0); LYMPH # 0.6 K/mm3 (1.5-4.5); LYMPH % 10.8 % (24.0-44.0); MEAN CORPUSCULAR HGB CONC 34.3 g/dl (32.0-36.5); MEAN CORPUSCULAR VOLUME 90.4 fl (80.0-96.0); MONO # 0.4 K/mm3 (0.0-0.8); MONO % 7.8 % (0.0-5.0); NEUTROPHILS # 4.1 K/mm3 (1.8-7.7); PLATELET COUNT, AUTOMATED 182 k/mm3 (150-450); RED CELL DISTRIBUTION WIDTH 12.2 % (11.5-14.5); WHITE BLOOD COUNT 5.5 K/mm3 (4.0-10.0)
[2016-07-03 06:26] LABS: ANION GAP 9 MEQ/L (8-16); BLOOD UREA NITROGEN 12 MG/DL (7-18); CALCIUM LEVEL 8.1 MG/DL (8.8-10.2); CARBON DIOXIDE LEVEL 25 MEQ/L (21-32); CHLORIDE LEVEL 108 MEQ/L (98-107); CREATININE FOR GFR 0.98 MG/DL (0.70-1.30); GLOMERULAR FILTRATION RATE > 60.0 (>42); GLUCOSE, FASTING 116 MG/DL (83-110); MAGNESIUM LEVEL 2.1 MG/DL (1.8-2.4); POTASSIUM SERUM 3.7 MEQ/L (3.5-5.1); SODIUM LEVEL 142 MEQ/L (136-145)
[2016-07-03] MEDS: MOM 30ML SUSPENSION UDC PO SCH (08:11)
[2016-07-03] MEDS: PANTOPRAZOLE 40MG INJ (PROTONIX) (C9113) IV SCH (08:11)
[2016-07-03] MEDS: MESALAMINE 400 MG CAPSULE DELAYED RELEASE (DELZICOL) PO SCH (08:11)
[2016-07-03] MEDS: TIOTROPIUM INHALER/CAPSULE (SPIRIVA) INH SCH (08:42)
--- NOTE | 2016-07-04 13:24 | DSES ---
DATE OF ADMISSION: 06/29/2016 DATE OF DISCHARGE: 07/03/2016 ADMISSION DIAGNOSIS: Partial versus complete small bowel obstruction. DISCHARGE DIAGNOSIS: Partial versus complete small bowel obstruction. HOSPITAL COURSE: The patient is a 76-year-old male patient with a history of multiple small bowel obstructions in the past. He has undergone one bowel resection for adhesions from this a couple years ago. He presented with a [id number]-hour history of right lower quadrant pain, abdominal distention. In the emergency room (ER), CT scan shows a bowel obstruction in the distal small intestine in the right lower quadrant with a transition zone. The recommendation was to admit with intravenous (IV) fluids, nothing by mouth, and nasogastric (NG) tube for bowel decompression. NG tube was placed on the evening of 06/29/2016. By 06/30/2016, the patient was up walking in the herrera. Symptoms were already improved from his standpoint. White count returned from 16 down to 10. He did have about 1 liter of bilious output from his NG tube overnight, and his abdominal distention was improved. He was starting to have a little bit of flatus but no bowel movements, so the NG tube was left in place, and he was started on a clear-liquid diet. By the morning of 07/01/2016, his pain and distention again were improving. NG tube was left in place a little longer because he still did not have any bowel movements. By the morning of 07/02/2016, he was getting short of breath and having difficulty swallowing. He thinks that a pill may have gotten lodged in his throat along side of his NG tube that was causing him some difficulty. He went in to a little bit of respiratory distress. He had chest x-ray and abdominal x-ray checked, and the NG tube was removed. As soon as the NG tube was removed, his symptoms went away, and he felt better. Chest x-ray was nonspecific. Abdominal x-ray also showed that there were no more signs of obstruction. He was started on a clear-liquid diet. He had two bowel movements throughout the day. Overnight, on 07/02/2016, he had another bowel movement. When I came in to see him on the morning of 07/03/2016, his abdomen was completely soft. He had been having another loose bowel movement that morning, tolerating diet, ambulating without any difficulty; and plan was to discharge home on regular diet. PLAN: Discharge home on regular diet. Followup with me in the office as needed if symptoms return, call my office with any questions.
== END 2016-07-03 13:12 | disposition home or self-care (01) | DRG 390 ==
LOC: M ED 13:02 → M ED INP 18:03 → M MSPAV 20:30
PROVIDERS: ADMIT Surgery; ATTEND Surgery
DX: K56.5 Intestinal adhesions [bands] with obstruction (postinfection) (principal); J44.9 Chronic obstructive pulmonary disease, unspecified; Z90.49 Acquired absence of other specified parts of digestive tract; Z79.899 Other long term (current) drug therapy

== ENCOUNTER → 2016-11-21 | Outpatient (REF) | payer BC, MEDICARE ==
[~2016-11-21] MED LIST changes: +DOCU100C PO; +IBUPOTC PO
[2016-11-21 14:30] LABS: BASO % 0.5 % (0.0-1.0); EOS # 0.2 K/mm3 (0.0-0.50); EOS % 2.9 % (0.0-3.0); LARGE UNSTAINED CELL # 0.1 K/mm3 (0.0-0.4); LARGE UNSTAINED CELL % 1.2 % (0.0-4.0); LYMPH # 1.3 K/mm3 (1.5-4.5); LYMPH % 15.5 % (24.0-44.0); MEAN CORPUSCULAR HEMOGLOBIN 30.4 pg (27.0-33.0); MEAN CORPUSCULAR HGB CONC 32.9 g/dl (32.0-36.5); MEAN CORPUSCULAR VOLUME 92.4 fl (80.0-96.0); MONO # 0.6 K/mm3 (0.0-0.8); MONO % 7.3 % (0.0-5.0); NEUTROPHILS # 5.7 K/mm3 (1.8-7.7); NEUTROPHILS % 72.6 % (36.0-66.0); PLATELET COUNT, AUTOMATED 237 k/mm3 (150-450); RED CELL DISTRIBUTION WIDTH 12.9 % (11.5-14.5); WHITE BLOOD COUNT 7.8 K/mm3 (4.0-10.0)
[2016-11-21 14:43] LABS: ALBUMIN 3.1 GM/DL (3.2-5.2); ALBUMIN/GLOBULIN RATIO 0.94 (1.00-1.93); ALKALINE PHOSPHATASE 82 U/L (45-117); ALT/SGPT 16 U/L (12-78); ANION GAP 6 MEQ/L (8-16); AST/SGOT 14 U/L (15-37); BILIRUBIN,TOTAL 0.3 MG/DL (0.2-1.0); BLOOD UREA NITROGEN 26 MG/DL (7-18); CARBON DIOXIDE LEVEL 27 MEQ/L (21-32); CHLORIDE LEVEL 108 MEQ/L (98-107); CHOLESTEROL LEVEL 114 MG/DL (<200); CREATININE FOR GFR 1.03 MG/DL (0.70-1.30); GLOMERULAR FILTRATION RATE > 60.0 (>42); GLUCOSE, FASTING 93 MG/DL (83-110); POTASSIUM SERUM 4.7 MEQ/L (3.5-5.1); SODIUM LEVEL 141 MEQ/L (136-145); TOTAL PROTEIN 6.4 GM/DL (6.4-8.2); TRIGLYCERIDES LEVEL 77 MG/DL (<150)
== END ==
LOC: M LABDRWAD 13:54
PROVIDERS: ATTEND Nurse Practitioner Family
DX: K21.9 Gastro-esophageal reflux disease without esophagitis (principal); I11.0 Hypertensive heart disease with heart failure; Z13.220 Encounter for screening for lipoid disorders

== ENCOUNTER 2017-03-15 13:33 | Inpatient (IN) | payer MEDICARE, BC ==
[~2017-03-15] VITALS: Ht 177.8 cm; Wt 98.4 kg
[~2017-03-15 13:33] MED LIST changes: -ASAC800T2 PO; +ASAC800T3 PO; -DOCU100C PO; +DOCU100C16 PO; +KEFL500C17 PO; -KEFL500C7 PO; -MACR100C3 PO; +MACR100C43 PO; +OXYC-403 PO; -OXYC1TAB55 PO; -POTA10TA34 PO; +POTA10TA67 PO
[2017-03-15] MEDS ORDERED: NS 1,000 ML IV SCH (14:19)
[2017-03-15] MEDS ORDERED: ONDANSETRON 4MG/2ML VIAL (J2405) IV ONE ×2 (14:30→16:15)
[2017-03-15] MEDS: MORPHINE 2 MG/ML 1ML SYRINGE IV PRN ×4 (14:33→22:06)
[2017-03-15 14:45] LABS: BASO % 0.2 % (0.0-1.0); EOS # 0.2 10^3/uL (0.0-0.50); EOS % 1.3 % (0.0-3.0); IMMATURE GRANULOCYTE % 0.4 % (0-0); LYMPH # 1.7 10^3/uL (1.5-4.5); LYMPH % 11.3 % (24.0-44.0); MEAN CORPUSCULAR HEMOGLOBIN 29.9 pg (27.0-33.0); MEAN CORPUSCULAR HGB CONC 33.8 g/dl (32.0-36.5); MEAN CORPUSCULAR VOLUME 88.4 fl (80.0-96.0); MONO # 1.2 10^3/uL (0.0-0.8); MONO % 7.9 % (0.0-5.0); NEUTROPHILS # 11.8 10^3/uL (1.8-7.7); NEUTROPHILS % 78.9 % (36.0-66.0); PLATELET COUNT, AUTOMATED 278 10^3/uL (150-450); RED CELL DISTRIBUTION WIDTH 13.6 % (11.5-14.5); WHITE BLOOD COUNT 14.9 10^3/uL (4.0-10.0)
[2017-03-15 14:52] LABS: ADD MORPHOLOGY? NO
[2017-03-15 14:54] LABS: ALBUMIN 3.8 GM/DL (3.2-5.2); ALBUMIN/GLOBULIN RATIO 0.86 (1.00-1.93); ALKALINE PHOSPHATASE 82 U/L (45-117); ALT/SGPT 15 U/L (12-78); ANION GAP 7 MEQ/L (8-16); AST/SGOT 15 U/L (15-37); BILIRUBIN,DIRECT 0.2 MG/DL (0.0-0.2); BILIRUBIN,TOTAL 0.9 MG/DL (0.2-1.0); BLOOD UREA NITROGEN 21 MG/DL (7-18); CALCIUM LEVEL 9.9 MG/DL (8.8-10.2); CARBON DIOXIDE LEVEL 27 MEQ/L (21-32); CHLORIDE LEVEL 103 MEQ/L (98-107); CREATININE FOR GFR 1.13 MG/DL (0.70-1.30); GLOMERULAR FILTRATION RATE > 60.0 (>42); GLUCOSE, FASTING 132 MG/DL (83-110); POTASSIUM SERUM 3.9 MEQ/L (3.5-5.1); SODIUM LEVEL 137 MEQ/L (136-145); TOTAL PROTEIN 8.2 GM/DL (6.4-8.2)
--- NOTE | 2017-03-15 16:26 | REP ---
CT ABDOMEN AND PELVIS WITH IV CONTRAST: TECHNIQUE: Axial contrast enhanced images from the lung bases to the pubic symphysis using 100 mL Isovue 370 intravenous contrast material with multiplanar reformations. There is a small right pleural effusion with adjacent atelectasis/infiltrate. There is a small hiatal hernia. The liver demonstrates no mass. Patient has had a prior cholecystectomy. Spleen, adrenals, pancreas, and kidneys are unremarkable. There is no abdominal aortic aneurysm. There is no adenopathy. There is no free air or free fluid. There is diffuse moderate dilatation of the small bowel with a transition point in the right mid abdomen, laterally. Findings are consistent with small bowel obstruction. There are multiple diverticula in the colon. There is no pelvic mass. Urinary bladder is not distended and not well evaluated. IMPRESSION: Small bowel obstruction with a transition point in the right mid-abdomen laterally. Small right pleural effusion with adjacent atelectasis/infiltrate. Signed by Christoph Yusuf MD 03/15/2017 07:55 P
[2017-03-15] MEDS ORDERED: D5W/0.45% SODIUM CHLORIDE 1,000 ML IV SCH (17:30)
[2017-03-15] MEDS ORDERED: MILKSUS5 PO (17:40)
[2017-03-15] MEDS ORDERED: METOCLOPRAMIDE INJ 10MG/2ML VIAL (J2765) IV PRN (17:45)
[2017-03-15] MEDS ORDERED: ONDANSETRON 4MG/2ML VIAL (J2405) IV PRN (17:45)
[2017-03-15] MEDS ORDERED: MORPHINE 4 MG/ML 1ML SYRINGE IV PRN (17:45)
[2017-03-15] MEDS ORDERED: PROMETHAZINE INJ 25 MG/ML VIAL (J2550) IV PRN (17:45)
[2017-03-15] MEDS: LevoFLOXacin IV 500 MG in APPROPRIATE DILUENT 1 EA IV SCH (18:15)
[2017-03-15 18:45] VITALS: BP 166/77
[2017-03-15] MEDS: IPRATROPIUM 0.5MG/ALBUTEROL 2.5MG INH SOL UD 3ML (DUONEB)(J7620) NEB SCH (20:00)
--- NOTE | 2017-03-15 20:37 | REP ---
CHEST, TWO VIEWS: Two views of the chest were performed. Comparison 08/11/2014 as well as other prior exams. There is a small right pleural effusion with adjacent right basilar atelectasis/infiltrate. Left lung is clear. Heart does not appear to be significantly enlarged. There is a nasogastric tube traversing into the stomach, the sideport appears to be in the region of the gastroesophageal junction. Signed by Christoph Yusuf MD 03/16/2017 05:13 P
[2017-03-15] MEDS: NS 1,000 ML IV SCH (20:45)
[2017-03-15 22:00] VITALS: BP 135/61
[2017-03-16] MEDS: NS 1,000 ML IV SCH ×3 (01:41→22:50)
[2017-03-16 07:11] LABS: MEAN CORPUSCULAR HGB CONC 33.3 g/dl (32.0-36.5); RED CELL DISTRIBUTION WIDTH 13.6 % (11.5-14.5); WHITE BLOOD COUNT 8.2 10^3/uL (4.0-10.0)
[2017-03-16] MEDS: TIOTROPIUM INHALER/CAPSULE (SPIRIVA) INH SCH (07:15)
[2017-03-16] MEDS: IPRATROPIUM 0.5MG/ALBUTEROL 2.5MG INH SOL UD 3ML (DUONEB)(J7620) NEB SCH ×4 (07:15→20:00)
[2017-03-16 07:33] LABS: ANION GAP 6 MEQ/L (8-16); BLOOD UREA NITROGEN 22 MG/DL (7-18); CALCIUM LEVEL 7.9 MG/DL (8.8-10.2); CARBON DIOXIDE LEVEL 29 MEQ/L (21-32); CHLORIDE LEVEL 106 MEQ/L (98-107); CREATININE FOR GFR 1.02 MG/DL (0.70-1.30); GLOMERULAR FILTRATION RATE > 60.0 (>42); GLUCOSE, FASTING 98 MG/DL (83-110); POTASSIUM SERUM 4.1 MEQ/L (3.5-5.1); SODIUM LEVEL 141 MEQ/L (136-145)
[2017-03-16] MEDS ORDERED: ISOVUE-370 76% 100ML VIAL (Q9967) ONE (07:41)
[2017-03-16] MEDS: PANTOPRAZOLE 40MG INJ (PROTONIX) (C9113) IV SCH (08:59)
[2017-03-16] MEDS ORDERED: CHLORASEPTIC SPRAY MT PRN (10:15)
[2017-03-16 14:00] VITALS: BP 153/67
[2017-03-16] MEDS: MORPHINE 2 MG/ML 1ML SYRINGE IV PRN (15:05)
--- NOTE | 2017-03-16 16:25 | IPNPDOC ---
Date Seen The patient was seen on 03/16/17. Progress Note SUBJECTIVE: A 66-year-old male who presented to the ED with abdominal pain. CT revealed small bowel obstruction with a transitional point in the right mid abdomen laterally. Surgery was consulted as a result. Patient was admitted and an NG tube was placed. This morning patient reports that he is feeling fine, the pain has decreased. OBJECTIVE PHYSICAL EXAMINATION: VITAL SIGNS: Please see below. GENERAL: Alert gentleman, in bed, NG tube placed CARDIOVASCULAR: S1 and S2 present, no murmurs, rubs, or gallops. RESPIRATORY: Lungs are clear to auscultate bilaterally. ABDOMINAL: Moderate tender to palpation, improved from initial presentation. EXTREMITIES: Moving, no deformities LABORATORY DATA: Please see below. MICROBIOLOGY: Please see below. IMAGING: Abdominal CT on 03/15/2017 it shows small bowel obstruction with a transitional point in the right mid abdomen laterally. ASSESSMENT AND PLAN: This is a 68-year-old male made for small bowel obstruction. NG tube is currently in place for stomach decompression. Patient reports that the pain has decreased, and he is feeling better overall. Patient is nothing by mouth. Patient has not had a bowel movement but admits the flatus .We'll continue to monitor patient for pain and bowel movement. I expect patient to make continued clinical improvements with a possible discharge once stabilized, pain-free, and is able to tolerate regular food early next week. VS, I&O, 24H, Fishbone Vital Signs/I&O Vital Signs Date Time Temp Pulse Resp B/P (MAP) Pulse Ox O2 Delivery O2 Flow Rate FiO2 03/16/17 15:05 20 03/15/17 22:16 Room Air 03/15/17 22:00 96.8 85 135/61 (85) 96 I&O- Last 24 Hours up to 6 AM 03/17/17 05:59 Intake Total 120 ml Output Total 700 ml Balance -580 ml Laboratory Data 24H LABS Laboratory Tests 2 03/16/17 06:37: Anion Gap 6L, Glomerular Filtration Rate > 60.0, Blood Urea Nitrogen 22H, Creatinine 1.02, Sodium Level 141, Potassium Level 4.1, Chloride Level 106, Carbon Dioxide Level 29, Calcium Level 7.9#L CBC/BMP Laboratory Tests 03/16/17 06:37 Red Blood Count 4.20 L, Mean Corpuscular Volume 90.0, Mean Corpuscular Hemoglobin 30.0, Mean Corpuscular Hemoglobin Concent 33.3, Red Cell Distribution Width 13.6, Calcium Level 7.9 #L GME ATTESTATION GME ATTESTATION My preceptor for this patient encounter was physically present in the building during the encounter and was fully available. As needed, all aspects of the patient interview, examination, medical decision making process, and medical care plan development were reviewed and approved by the preceptor. Preceptor is aware and concurs with the plan as stated in the body of this note and will attest to such by his/her cosignature. JOSE DAWKINS DO Mar 16, 2017 16:25
[2017-03-16] MEDS: ENOXAPARIN 30 MG/0.3 ML SYR (J1650) SC SCH (17:43)
[2017-03-16] MEDS: LevoFLOXacin IV 500 MG in APPROPRIATE DILUENT 1 EA IV SCH (17:43)
[2017-03-16 22:00] VITALS: BP 148/66
[2017-03-17 02:00] VITALS: BP 137/65
[2017-03-17 06:00] VITALS: BP 153/77
[2017-03-17] MEDS: NS 1,000 ML IV SCH ×3 (07:00→17:41)
[2017-03-17 07:23] LABS: MEAN CORPUSCULAR HEMOGLOBIN 29.8 pg (27.0-33.0); MEAN CORPUSCULAR HGB CONC 33.1 g/dl (32.0-36.5); MEAN CORPUSCULAR VOLUME 90.1 fl (80.0-96.0); RED CELL DISTRIBUTION WIDTH 13.6 % (11.5-14.5); WHITE BLOOD COUNT 6.8 10^3/uL (4.0-10.0)
[2017-03-17 07:43] LABS: ANION GAP 6 MEQ/L (8-16); BLOOD UREA NITROGEN 20 MG/DL (7-18); CALCIUM LEVEL 8.1 MG/DL (8.8-10.2); CARBON DIOXIDE LEVEL 26 MEQ/L (21-32); CHLORIDE LEVEL 107 MEQ/L (98-107); CREATININE FOR GFR 0.84 MG/DL (0.70-1.30); GLOMERULAR FILTRATION RATE > 60.0 (>42); GLUCOSE, FASTING 83 MG/DL (83-110); SODIUM LEVEL 139 MEQ/L (136-145)
--- NOTE | 2017-03-17 07:56 | ECGEPIP ---
Stationary ECG Study [facility] - ED Test Date: 2017-03-15 Pat Name: HUYEN VIVEROS Department: Room: - Gender: M [employer] Coating Machine Operator: CANDIDA : 1940 Requested By: KAILEY BLAND Order Number: [id number] Reading MD: Fabian Cobos Measurements Intervals Jerome Rate: 76 P: KS: 0 QRS: -43 QRSD: 142 T: -19 QT: 423 QTc: 478 Interpretive Statements ATRIAL FIBRILLATION LEFT AXIS DEVIATION RIGHT BUNDLE BRANCH BLOCK POSSIBLE SEPTAL MYOCARDIAL INFARCTION, PROBABLY OLD SIMILAR TO 08/11/14 Electronically Signed On 03-17-2017 7:56:35 EDT by Fabian Cobos
[2017-03-17] MEDS: IPRATROPIUM 0.5MG/ALBUTEROL 2.5MG INH SOL UD 3ML (DUONEB)(J7620) NEB SCH ×4 (08:00→22:14)
[2017-03-17] MEDS: TIOTROPIUM INHALER/CAPSULE (SPIRIVA) INH SCH (08:03)
[2017-03-17] MEDS: PANTOPRAZOLE 40MG INJ (PROTONIX) (C9113) IV SCH (08:33)
[2017-03-17 14:00] VITALS: BP 145/64
[2017-03-17] MEDS: ENOXAPARIN 30 MG/0.3 ML SYR (J1650) SC SCH (15:44)
[2017-03-17] MEDS: LevoFLOXacin IV 500 MG in APPROPRIATE DILUENT 1 EA IV SCH (17:29)
[2017-03-17] MEDS ORDERED: LevoFLOXacin 500 MG TABLET PO ONE (22:30)
[2017-03-18] MEDS: NS 1,000 ML IV SCH ×3 (01:17→18:02)
[2017-03-18 06:00] VITALS: BP 167/72
[2017-03-18 07:10] LABS: MEAN CORPUSCULAR HEMOGLOBIN 29.8 pg (27.0-33.0); MEAN CORPUSCULAR HGB CONC 33.4 g/dl (32.0-36.5); MEAN CORPUSCULAR VOLUME 89.2 fl (80.0-96.0); RED CELL DISTRIBUTION WIDTH 13.2 % (11.5-14.5); WHITE BLOOD COUNT 8.6 10^3/uL (4.0-10.0)
[2017-03-18] MEDS: IPRATROPIUM 0.5MG/ALBUTEROL 2.5MG INH SOL UD 3ML (DUONEB)(J7620) NEB SCH ×4 (07:14→20:45)
[2017-03-18] MEDS: TIOTROPIUM INHALER/CAPSULE (SPIRIVA) INH SCH (07:14)
[2017-03-18 07:33] LABS: ANION GAP 10 MEQ/L (8-16); BLOOD UREA NITROGEN 19 MG/DL (7-18); CALCIUM LEVEL 8.3 MG/DL (8.8-10.2); CARBON DIOXIDE LEVEL 23 MEQ/L (21-32); CHLORIDE LEVEL 106 MEQ/L (98-107); CREATININE FOR GFR 0.84 MG/DL (0.70-1.30); GLOMERULAR FILTRATION RATE > 60.0 (>42); GLUCOSE, FASTING 83 MG/DL (83-110); POTASSIUM SERUM 3.8 MEQ/L (3.5-5.1); SODIUM LEVEL 139 MEQ/L (136-145)
[2017-03-18] MEDS ORDERED: MOM 30ML SUSPENSION UDC PO ONE (10:30)
--- NOTE | 2017-03-18 10:57 | REP ---
Supine and upright abdomen: Comparison is the CT of the abdomen pelvis dated 03/15/2017. There is a nasogastric tube with the tip in the abdominal left upper quadrant. The bowel gas pattern is normal. There are no air-fluid levels. There are surgical clips in the abdominal right upper quadrant. There is calcified vascular atheroma superimposed over the sacrum on the right. Impression: Normal bowel gas pattern. Signed by Christoph Hernandez MD 03/18/2017 10:49 A
[2017-03-18] MEDS: PANTOPRAZOLE 40MG INJ (PROTONIX) (C9113) IV SCH (11:12)
[2017-03-18 14:00] VITALS: BP 137/80
[2017-03-18] MEDS: ENOXAPARIN 30 MG/0.3 ML SYR (J1650) SC SCH (16:32)
[2017-03-18] MEDS: LevoFLOXacin IV 500 MG in APPROPRIATE DILUENT 1 EA IV SCH (18:03)
[2017-03-18 22:00] VITALS: BP 144/74
[2017-03-18] MEDS: MORPHINE 2 MG/ML 1ML SYRINGE IV PRN (23:29)
[2017-03-19] MEDS: NS 1,000 ML IV SCH ×3 (02:31→17:36)
[2017-03-19] MEDS: MORPHINE 2 MG/ML 1ML SYRINGE IV PRN (02:33)
[2017-03-19 07:25] LABS: MEAN CORPUSCULAR HEMOGLOBIN 30.1 pg (27.0-33.0); MEAN CORPUSCULAR HGB CONC 33.2 g/dl (32.0-36.5); MEAN CORPUSCULAR VOLUME 90.4 fl (80.0-96.0); RED CELL DISTRIBUTION WIDTH 13.8 % (11.5-14.5); WHITE BLOOD COUNT 10.1 10^3/uL (4.0-10.0)
[2017-03-19] MEDS: TIOTROPIUM INHALER/CAPSULE (SPIRIVA) INH SCH (07:28)
[2017-03-19] MEDS: IPRATROPIUM 0.5MG/ALBUTEROL 2.5MG INH SOL UD 3ML (DUONEB)(J7620) NEB SCH ×4 (07:28→20:00)
[2017-03-19 07:53] LABS: ANION GAP 10 MEQ/L (8-16); BLOOD UREA NITROGEN 16 MG/DL (7-18); CALCIUM LEVEL 8.1 MG/DL (8.8-10.2); CARBON DIOXIDE LEVEL 25 MEQ/L (21-32); CHLORIDE LEVEL 107 MEQ/L (98-107); CREATININE FOR GFR 0.87 MG/DL (0.70-1.30); GLOMERULAR FILTRATION RATE > 60.0 (>42); GLUCOSE, FASTING 101 MG/DL (83-110); SODIUM LEVEL 142 MEQ/L (136-145)
[2017-03-19 08:19] VITALS: BP 153/68
[2017-03-19] MEDS: PANTOPRAZOLE 40MG INJ (PROTONIX) (C9113) IV SCH (10:25)
--- NOTE | 2017-03-19 12:03 | IPNPDOC ---
Date Seen The patient was seen on 03/19/17. Progress Note SUBJECTIVE: A 66-year-old male who presented to the ED with abdominal pain. CT revealed small bowel obstruction with a transitional point in the right mid abdomen laterally. Surgery was consulted as a result. Patient yanked out his NG tube overnight because was irritating the back of throat, the tube was not currently draining anything as it had been clamped overnight . He states that his stomach is back to baseline. He admits to bowel movement the day prior. OBJECTIVE PHYSICAL EXAMINATION: VITAL SIGNS: Please see below. GENERAL: Alert gentleman, in bed, NG tube placed CARDIOVASCULAR: S1 and S2 present, no murmurs, rubs, or gallops. RESPIRATORY: Lungs are clear to auscultate bilaterally. ABDOMINAL: Nontender to palpation, abdomen is nondistended EXTREMITIES: Moving, no deformities LABORATORY DATA: Please see below. MICROBIOLOGY: Please see below. IMAGING: Abdominal CT on 03/15/2017 it shows small bowel obstruction with a transitional point in the right mid abdomen laterally. ASSESSMENT AND PLAN: This is a 68-year-old male admitted for small bowel obstruction. Patient manually removed his own NG tube. A decision was made to discontinue the NG tube since it had been clamped overnight patient was not currently having any drainage. Patient was started on clear liquid diet today. On his initial sip he had difficulty breathing, his O2 stats remain unchanged. On subsequent sip he was fine he only complained of minor throat irritation. Will continue to monitor patient and possibly restart regular diet later today if patient is able to tolerate a liquid diet. VS, I&O, 24H, Fishbone Vital Signs/I&O Vital Signs Date Time Temp Pulse Resp B/P (MAP) Pulse Ox O2 Delivery O2 Flow Rate FiO2 03/19/17 08:19 96.9 89 18 153/68 (96) 95 Room Air I&O- Last 24 Hours up to 6 AM 03/20/17 06:00 Intake Total 0 ml Balance 0 ml Laboratory Data 24H LABS Laboratory Tests 2 03/19/17 07:00: Anion Gap 10, Glomerular Filtration Rate > 60.0, Blood Urea Nitrogen 16, Creatinine 0.87, Sodium Level 142, Potassium Level 4.0, Chloride Level 107, Carbon Dioxide Level 25, Calcium Level 8.1L CBC/BMP Laboratory Tests 03/19/17 07:00 Red Blood Count 3.86 L, Mean Corpuscular Volume 90.4, Mean Corpuscular Hemoglobin 30.1, Mean Corpuscular Hemoglobin Concent 33.2, Red Cell Distribution Width 13.8, Calcium Level 8.1 L GME ATTESTATION GME ATTESTATION My preceptor for this patient encounter was physically present in the building during the encounter and was fully available. As needed, all aspects of the patient interview, examination, medical decision making process, and medical care plan development were reviewed and approved by the preceptor. Preceptor is aware and concurs with the plan as stated in the body of this note and will attest to such by his/her cosignature. JOSE DAWKINS DO Mar 19, 2017 12:03
[2017-03-19 15:00] VITALS: BP 143/67
[2017-03-19] MEDS: LevoFLOXacin IV 500 MG in APPROPRIATE DILUENT 1 EA IV SCH (17:36)
[2017-03-19] MEDS: ENOXAPARIN 30 MG/0.3 ML SYR (J1650) SC SCH (17:36)
[2017-03-19 22:00] VITALS: BP 149/66
[2017-03-20] MEDS: NS 1,000 ML IV SCH (02:07)
[2017-03-20 06:00] VITALS: BP 165/61
[2017-03-20 07:10] LABS: MEAN CORPUSCULAR HEMOGLOBIN 30.2 pg (27.0-33.0); MEAN CORPUSCULAR HGB CONC 33.6 g/dl (32.0-36.5); MEAN CORPUSCULAR VOLUME 89.9 fl (80.0-96.0); RED CELL DISTRIBUTION WIDTH 13.6 % (11.5-14.5); WHITE BLOOD COUNT 8.5 10^3/uL (4.0-10.0)
[2017-03-20] MEDS: IPRATROPIUM 0.5MG/ALBUTEROL 2.5MG INH SOL UD 3ML (DUONEB)(J7620) NEB SCH (07:23)
[2017-03-20] MEDS: TIOTROPIUM INHALER/CAPSULE (SPIRIVA) INH SCH (07:23)
--- NOTE | 2017-03-20 07:47 | IPNPDOC ---
Date Seen The patient was seen on 03/20/17. Progress Note SUBJECTIVE: A 66-year-old male who presented to the ED with abdominal pain. CT revealed small bowel obstruction with a transitional point in the right mid abdomen laterally. Surgery was consulted as a result. Patient was started on clear liquid diet yesterday. He had a little trouble with his first sip, where he believed it went down the wrong tube. He became short of breath and started coughing. After he was instructed to drink slowly and will small sips. He did not have any issues with this clear liquid diet following the initial incident. This morning he tolerated his breakfast with no issues. OBJECTIVE PHYSICAL EXAMINATION: VITAL SIGNS: Please see below. GENERAL: Alert gentleman, in bed, NG tube placed CARDIOVASCULAR: S1 and S2 present, no murmurs, rubs, or gallops. RESPIRATORY: Lungs are clear to auscultate bilaterally. ABDOMINAL: Nontender to palpation, non distended abdomin EXTREMITIES: Moving, no deformities, no swelling LABORATORY DATA: Please see below. MICROBIOLOGY: Please see below. IMAGING: Abdominal CT on 03/15/2017 it shows small bowel obstruction with a transitional point in the right mid abdomen laterally. ASSESSMENT AND PLAN: This is a 68-year-old male admitted for small bowel obstruction. Patient was able to tolerate his regular diet this morning without any difficulties. He will be discharge this morning. VS, I&O, 24H, Fishbone Vital Signs/I&O Vital Signs Date Time Temp Pulse Resp B/P (MAP) Pulse Ox O2 Delivery O2 Flow Rate FiO2 03/20/17 06:00 98.6 72 18 165/61 (95) 98 Room Air Laboratory Data 24H LABS Laboratory Tests 2 03/20/17 06:56: CBC/BMP Laboratory Tests 03/20/17 06:56 Red Blood Count 3.97 L, Mean Corpuscular Volume 89.9, Mean Corpuscular Hemoglobin 30.2, Mean Corpuscular Hemoglobin Concent 33.6, Red Cell Distribution Width 13.6 GME ATTESTATION GME ATTESTATION My preceptor for this patient encounter was physically present in the building during the encounter and was fully available. As needed, all aspects of the patient interview, examination, medical decision making process, and medical care plan development were reviewed and approved by the preceptor. Preceptor is aware and concurs with the plan as stated in the body of this note and will attest to such by his/her cosignature. JOSE DAWKINS DO Mar 20, 2017 07:47
[2017-03-20 07:49] LABS: ANION GAP 8 MEQ/L (8-16); BLOOD UREA NITROGEN 12 MG/DL (7-18); CALCIUM LEVEL 8.3 MG/DL (8.8-10.2); CARBON DIOXIDE LEVEL 25 MEQ/L (21-32); CHLORIDE LEVEL 108 MEQ/L (98-107); CREATININE FOR GFR 0.78 MG/DL (0.70-1.30); GLOMERULAR FILTRATION RATE > 60.0 (>42); GLUCOSE, FASTING 88 MG/DL (83-110); POTASSIUM SERUM 3.8 MEQ/L (3.5-5.1); SODIUM LEVEL 141 MEQ/L (136-145)
[2017-03-20] MEDS: PANTOPRAZOLE 40MG INJ (PROTONIX) (C9113) IV SCH (08:48)
[2017-03-20] MEDS ORDERED: LEVA1TAB2 PO (09:29)
--- NOTE | 2017-03-31 22:38 | DSES ---
DATE OF ADMISSION: 03/15/2017 DATE OF DISCHARGE: 03/20/2017 PRINCIPAL DIAGNOSIS: Small-bowel obstruction. ASSOCIATED DIAGNOSES 1. History of chronic obstructive pulmonary disease. 2. History of colitis. 3. History of gastroesophageal reflux. 4. History of constipation. 5. History of liver biopsy. 6. History of pericardial window. 7. History of cardiac ablation. 8. History of exploratory laparoscopy with laparoscopic cholecystectomy. 9. History of robotic prostatectomy. 10. History of umbilical hernia with lysis of adhesions. 11. History of infectious hepatitis in 1959. BRIEF HISTORY OF PRESENT ILLNESS: The patient is a 76-year-old male who developed abdominal distension, swelling with nausea and vomiting and evidence of small bowel obstruction on x-ray. HOSPITAL COURSE SUMMARY: The patient was admitted with the above diagnosis. Nasogastric (NG) tube was inserted, and the patient had some significant improvement of his abdominal pain and discomfort over the first 24 hours. His NG tube drainage was significant, over a liter the second day; however, this started to wean off, and then he started having bowel movements. He was discharged home after he removed his own NG tube. Then he was started on a clear liquid diet, advanced to a regular diet, and was discharged home on his usual medications, those including Spiriva, Zantac, Asacol, milk of magnesia, ibuprofen, Colace, and Levaquin. He was instructed to followup with myself in 2-3 weeks and followup with his primary care provider for presumed treatment of a pneumonia, which was seen on initial x-ray and confirmed to be present on followup x-rays.
== END 2017-03-20 11:05 | disposition home or self-care (01) | DRG 390 ==
LOC: M ED 13:33 → M ED INP 17:41 → M MS5PR 18:39
PROVIDERS: ADMIT Surgery; ATTEND Surgery
DX: K56.609 Unspecified intestinal obstruction, unspecified as to partial versus complete obstruction (principal); J44.9 Chronic obstructive pulmonary disease, unspecified; K21.9 Gastro-esophageal reflux disease without esophagitis; Z90.49 Acquired absence of other specified parts of digestive tract

== ENCOUNTER → 2017-05-18 | Outpatient (REF) | payer BC, MEDICARE ==
[~2017-05-18] MED LIST changes: +LEVA1TAB2 PO; +MILKSUS5 PO
[2017-05-18 12:27] LABS: BASO % 0.3 % (0.0-1.0); EOS # 0.3 10^3/uL (0.0-0.50); EOS % 4.3 % (0.0-3.0); IMMATURE GRANULOCYTE % 0.4 % (0-0); LYMPH # 0.9 10^3/uL (1.5-4.5); LYMPH % 12.3 % (24.0-44.0); MEAN CORPUSCULAR HEMOGLOBIN 30.3 pg (27.0-33.0); MEAN CORPUSCULAR HGB CONC 33.4 g/dl (32.0-36.5); MEAN CORPUSCULAR VOLUME 90.5 fl (80.0-96.0); MONO # 0.8 10^3/uL (0.0-0.8); MONO % 10.2 % (0.0-5.0); NEUTROPHILS # 5.3 10^3/uL (1.8-7.7); NEUTROPHILS % 72.5 % (36.0-66.0); PLATELET COUNT, AUTOMATED 251 10^3/uL (150-450); RED CELL DISTRIBUTION WIDTH 13.4 % (11.5-14.5); WHITE BLOOD COUNT 7.4 10^3/uL (4.0-10.0)
[2017-05-18 12:51] LABS: ALBUMIN 3.2 GM/DL (3.2-5.2); ALBUMIN/GLOBULIN RATIO 0.86 (1.00-1.93); ALKALINE PHOSPHATASE 84 U/L (45-117); ALT/SGPT 11 U/L (12-78); ANION GAP 9 MEQ/L (8-16); AST/SGOT 9 U/L (7-37); BILIRUBIN,TOTAL 0.6 MG/DL (0.2-1.0); BLOOD UREA NITROGEN 20 MG/DL (7-18); CALCIUM LEVEL 8.8 MG/DL (8.8-10.2); CARBON DIOXIDE LEVEL 29 MEQ/L (21-32); CHLORIDE LEVEL 103 MEQ/L (98-107); CREATININE FOR GFR 1.02 MG/DL (0.70-1.30); GLOMERULAR FILTRATION RATE > 60.0 (>42); GLUCOSE, FASTING 85 MG/DL (83-110); POTASSIUM SERUM 4.5 MEQ/L (3.5-5.1); SODIUM LEVEL 141 MEQ/L (136-145); TOTAL PROTEIN 6.9 GM/DL (6.4-8.2)
== END ==
LOC: M LABDRAW1 08:11
PROVIDERS: ATTEND Nurse Practitioner Family
DX: K21.9 Gastro-esophageal reflux disease without esophagitis (principal); I10 Essential (primary) hypertension

== ENCOUNTER → 2017-11-20 | Outpatient (REF) | payer BC ==
[2017-11-20 13:43] LABS: BASO % 0.3 % (0.0-1.0); EOS # 0.2 10^3/uL (0.0-0.50); EOS % 1.9 % (0.0-3.0); IMMATURE GRANULOCYTE % 0.3 % (0-3.0); LYMPH # 1.5 10^3/uL (1.5-4.5); LYMPH % 18.8 % (24.0-44.0); MEAN CORPUSCULAR HEMOGLOBIN 29.8 pg (27.0-33.0); MEAN CORPUSCULAR HGB CONC 32.4 g/dl (32.0-36.5); MEAN CORPUSCULAR VOLUME 91.8 fl (80.0-96.0); MONO # 0.8 10^3/uL (0.0-0.8); MONO % 10.5 % (0.0-5.0); NEUTROPHILS # 5.3 10^3/uL (1.8-7.7); NEUTROPHILS % 68.2 % (36.0-66.0); PLATELET COUNT, AUTOMATED 255 10^3/uL (150-450); RED BLOOD COUNT 4.03 10^6/uL (4.30-6.10); RED CELL DISTRIBUTION WIDTH 13.2 % (11.5-14.5); WHITE BLOOD COUNT 7.8 10^3/uL (4.0-10.0)
[2017-11-20 13:49] LABS: ALBUMIN 3.2 GM/DL (3.2-5.2); ALBUMIN/GLOBULIN RATIO 0.89 (1.00-1.93); ALKALINE PHOSPHATASE 78 U/L (45-117); ALT/SGPT 11 U/L (12-78); ANION GAP 6 MEQ/L (8-16); AST/SGOT 12 U/L (7-37); BILIRUBIN,TOTAL 0.4 MG/DL (0.2-1.0); BLOOD UREA NITROGEN 25 MG/DL (7-18); CALCIUM LEVEL 8.7 MG/DL (8.8-10.2); CARBON DIOXIDE LEVEL 29 MEQ/L (21-32); CHLORIDE LEVEL 106 MEQ/L (98-107); GLOMERULAR FILTRATION RATE > 60.0 (>42); GLUCOSE, FASTING 80 MG/DL (70-100); POTASSIUM SERUM 4.3 MEQ/L (3.5-5.1); SODIUM LEVEL 141 MEQ/L (136-145); TOTAL PROTEIN 6.8 GM/DL (6.4-8.2)
== END ==
LOC: M SFHCADAM 09:00
DX: K21.9 Gastro-esophageal reflux disease without esophagitis (principal); I11.0 Hypertensive heart disease with heart failure
CPT/HCPCS: 80053

== ENCOUNTER → 2018-04-19 | Outpatient (CLI) | payer BC | LOC: M ADAMS 15:12 | DX: M25.512 Pain in left shoulder (principal) | CPT/HCPCS: 73030 ==

== ENCOUNTER → 2018-05-30 | Outpatient (CLI) | payer BC | LOC: M RAD 12:50 | DX: M19.012 Primary osteoarthritis, left shoulder (principal); M75.102 Unspecified rotator cuff tear or rupture of left shoulder, not specified as traumatic; M25.512 Pain in left shoulder | CPT/HCPCS: 73221 ==

== ENCOUNTER 2018-06-20 06:32 | Inpatient (IN) | payer MEDICARE, BC ==
[~2018-06-20] VITALS: Ht 177.8 cm; Wt 93.0 kg
[~2018-06-20 06:32] MED LIST changes: +FLOM0.4C39 PO; -FLOM5CAP PO
[2018-06-20] MEDS ORDERED: ONDANSETRON 4MG/2ML VIAL (J2405) IV ONE (07:00)
[2018-06-20] MEDS ORDERED: MORPHINE 4 MG/ML 1ML VIAL/SYRINGE (J2270) IV ONE ×2 (07:00→08:45)
[2018-06-20] MEDS ORDERED: NS 500 ML IV ONE (07:00)
[2018-06-20 07:06] LABS: BASO % 0.2 % (0.0-1.0); EOS # 0.1 10^3/uL (0.0-0.50); EOS % 0.6 % (0.0-3.0); HEMOGLOBIN 14.9 g/dl (13.5-17.5); LYMPH # 1.4 10^3/uL (1.5-4.5); LYMPH % 7.3 % (24.0-44.0); MEAN CORPUSCULAR HEMOGLOBIN 30.4 pg (27.0-33.0); MEAN CORPUSCULAR HGB CONC 33.9 g/dl (32.0-36.5); MEAN CORPUSCULAR VOLUME 89.8 fl (80.0-96.0); MONO # 1.6 10^3/uL (0.0-0.8); MONO % 8.6 % (0.0-5.0); NEUTROPHILS # 15.5 10^3/uL (1.8-7.7); NEUTROPHILS % 82.9 % (36.0-66.0); PLATELET COUNT, AUTOMATED 311 10^3/uL (150-450); WHITE BLOOD COUNT 18.7 10^3/uL (4.0-10.0)
[2018-06-20 07:19] LABS: INR 1.05; PROTHROMBIN TIME 13.8 SECONDS (12.1-14.4)
[2018-06-20 07:20] LABS: PARTIAL THROMBOPLASTIN TIME 29.8 SECONDS (25.4-37.6)
[2018-06-20 07:35] LABS: ALBUMIN 3.7 GM/DL (3.2-5.2); BILIRUBIN,DIRECT 0.2 MG/DL (0.0-0.2); BILIRUBIN,TOTAL 0.6 MG/DL (0.2-1.0); CALCIUM LEVEL 9.1 MG/DL (8.8-10.2); CREATININE FOR GFR 1.38 MG/DL (0.70-1.30); GLOMERULAR FILTRATION RATE 52.8 (>35); POTASSIUM SERUM 4.3 MEQ/L (3.5-5.1); TOTAL PROTEIN 8.1 GM/DL (6.4-8.2)
[2018-06-20] MEDS: TIOTROPIUM INHALER/CAPSULE (SPIRIVA) INH SCH (08:00)
--- NOTE | 2018-06-20 09:30 | REPVR ---
EXAM: CT Abdomen and Pelvis Without Contrast EXAM DATE/TIME: 06/20/2018 6:50 AM CLINICAL HISTORY: 78 years old, male; Pain; Abdominal pain; Generalized; Patient HX: HX prostate; Additional info: Abd pain prob sbo TECHNIQUE: Axial computed tomography images of the abdomen and pelvis without contrast. All CT scans at this facility use at least one of these dose optimization techniques: automated exposure control; mA and/or kV adjustment per patient size (includes targeted exams where dose is matched to clinical indication); or iterative reconstruction. Coronal and sagittal reformatted images were created and reviewed. COMPARISON: CT ABD/PEL W/IV CONTRAST ONLY 03/15/2017 3:47 PM FINDINGS: Lower thorax: Small right and trace left pleural effusion. Bilateral increased interstitial markings. Moderate hiatal hernia. ABDOMEN: Liver: Normal. No mass. Gallbladder and bile ducts: Status post cholecystectomy. Pancreas: Normal. No ductal dilation. Spleen: Normal. No splenomegaly. Adrenals: Normal. No mass. Kidneys and ureters: Normal. No hydronephrosis. Stomach and bowel: Diverticulosis without CT evidence of diverticulitis. Multiple dilated fluid filled small bowel loops with decompressed distal bowel loops in the right lower quadrant. Transition point is most likely in the right lower quadrant not definitely seen. Appendix: No evidence of appendicitis. PELVIS: Bladder: Urinary bladder is not well distended but otherwise unremarkable. Reproductive: Unremarkable as visualized. ABDOMEN and PELVIS: Intraperitoneal space: Normal. No free air. No significant fluid collection. Bones/joints: Demineralization of the bones with degenerative changes. Soft tissues: Unremarkable. Vasculature: Atherosclerosis. Lymph nodes: Normal. No enlarged lymph nodes. IMPRESSION: Small bowel obstruction as described above. Small right and trace left pleural effusion. Diverticulosis without CT evidence of diverticulitis. Electronically signed by: Rebecca Alexander On 06/20/2018 09:29:51 AM
[2018-06-20] MEDS ORDERED: ACET1TAB55 PO (09:38)
[2018-06-20] MEDS ORDERED: MESA800T PO (09:40)
[2018-06-20] MEDS ORDERED: METOCLOPRAMIDE INJ 10MG/2ML VIAL (J2765) IV ONE (09:45)
[2018-06-20] MEDS ORDERED: NS 1,000 ML IV SCH (09:45)
[2018-06-20] MEDS ORDERED: MORPHINE 4 MG/ML 1ML VIAL/SYRINGE (J2270) IV PRN ×2 (11:30)
[2018-06-20] MEDS ORDERED: KETOROLAC 30 MG/ML VIAL (J1885) IV PRN (11:30)
[2018-06-20] MEDS ORDERED: METOCLOPRAMIDE INJ 10MG/2ML VIAL (J2765) IV PRN (11:30)
[2018-06-20] MEDS ORDERED: ONDANSETRON 4MG/2ML VIAL (J2405) IV PRN (11:30)
[2018-06-20] MEDS: LR 1,000 ML IV SCH ×2 (14:13→20:00)
[2018-06-20] MEDS: PANTOPRAZOLE 40MG INJ (PROTONIX) (C9113) IV SCH (14:13)
[2018-06-20 18:00] VITALS: BP 123/64
--- NOTE | 2018-06-20 21:16 | HPE ---
DATE OF ADMISSION: 06/20/2018 ADMITTING DIAGNOSIS: Small bowel obstruction secondary to adhesions. HISTORY OF PRESENT ILLNESS: The patient is a pleasant 78-year-old man who presented to the emergency department at approximately 06:30 in the morning on June 20, 2018, complaining of some abdominal distension and pain. He also had some nausea. He reported that he had not had any vomiting at home, but after checking into the emergency department, he had several episodes of emesis, which was nonbloody. The patient reported a history of prior intestinal obstructions. He indicated that this had happened a number of times and had generally resolved spontaneously, but he had undergone an exploratory laparotomy by Dr. Rebel de la garza in February 2009. He reported identifying some adhesions of the terminal ileum to the retroperitoneum and these were lysed. This was done as an elective procedure when he was not acutely obstructed. The patient reports that this time his symptoms began last evening but progressed over the course of the night to become quite severe by morning, which is when he presented. Other surgical procedures he has had include a laparoscopic cholecystectomy for acute cholecystitis back in 2011, and he underwent a robotic-assisted radical prostatectomy in August of 2014. In the emergency department, he had some basic laboratory studies obtained. These showed an elevation of his white blood cell count to 19,000. Chemistries showed normal liver functions, and a CT scan of the abdomen and pelvis was obtained, which showed some dilated loops of small bowel with a shorter segment of distal decompressed bowel. The gallbladder was surgically absent with several clips in the right upper quadrant. I was consulted, and the patient is now admitted for management of his small bowel obstruction. ALLERGIES: The patient reports an allergy to PENICILLIN, which leads to hives and edema. MEDICAL HISTORY: His medical history is significant for gastroesophageal reflux disease. He had supraventricular tachycardia, which was treated by ablation. He has emphysema. He has a history of diverticulosis without diverticulitis and a history of colitis, controlled on Asacol. SURGICAL HISTORY: His surgical history is significant for tonsillectomy. He had an umbilical hernia repair with lysis of adhesions in 2008. He had a cholecystectomy in 2011. His cardiac ablation was also in 2011. He has carpal tunnel release on the right, and his robotic prostatectomy was in 2014. His cardiac ablation was apparently complicated by a pericardial effusion, which required placement of a drain. MEDICATIONS PRIOR TO ADMISSION: Include: - Tylenol as needed for pain or fever - Colace 100 mg by mouth daily - mesalamine 800 mg by mouth daily - ranitidine 150 mg by mouth twice daily - Spiriva HandiHaler one capsule inhaled daily SOCIAL HISTORY: The patient is . He is a former smoker who quit years ago. He denies excessive alcohol intake. FAMILY HISTORY: Shows no significant heritable conditions. REVIEW OF SYSTEMS: Reveals no history of chest pain or palpitations. He denies any cough, wheezing or sputum production. He has had no history of significant abdominal pain recently. He did have an admission back in about February of 2017 for an obstruction that resolved over 4-5 days of observation in the hospital. He denies any dysuria or hematuria. He has no history of deep vein thrombosis (DVT) or pulmonary embolus. He has had no history of seizure, stroke or transient ischemic attack (TIA). Remainder of the review of systems is unremarkable. PHYSICAL EXAM: Reveals a older gentleman lying quietly on the hospital bed. He appears to be having hiccups. He is alert and oriented. Most recent vital signs show he has been afebrile with a pulse most recently of 80, blood pressure of 137/72 and respiratory rate of 16. Skin is warm and dry. Sclerae are anicteric. Neck is supple without mass. Heart exam shows a regular rate and rhythm. The lungs are clear to auscultation, though the breath sounds are somewhat distant. The abdomen shows a small scar at the umbilicus. There is at least one trocar site identified in the right lower quadrant but the other trocar sites are not well seen. He has few bowel sounds. There is no tympany to percussion. Palpation reveals the abdomen to be soft, but there is some tenderness in the lower midabdomen and right lower quadrant. The abdomen is not particularly distended, though it is full. There is no sign of hernia. Extremities are without edema, and he has palpable radial and dorsalis pedis pulses. Laboratory studies reveal a white count of 19,000, hemoglobin 15, hematocrit of 44 and a platelet count of 311,000. Differential count shows 83% neutrophils, 7% lymphocytes, and 9% monocytes. PT, PTT and INR are normal. His chemistry profile shows normal electrolytes with a BUN of 21, creatinine 1.38, glucose of 115. Lactic acid is 1.5 and his liver function tests are all normal. Amylase and lipase are normal. The CT scan showed findings consistent with a distal small bowel obstruction. I reviewed the images personally and would agree. He had a couple clips up by the liver and the gallbladder was surgically absent. IMPRESSION: 1. Small intestinal obstruction secondary to adhesions. 2. Chronic obstructive pulmonary disease. 3. Gastroesophageal reflux. 4. History of colitis. 5. Status post cardiac ablation for supraventricular tachycardia. 6. Status post radical prostatectomy. PLAN: The patient was counseled that admission would be appropriate for management of his small bowel obstruction. I have recommended placement of a nasogastric tube to prevent further emesis and potentially to decompress the small bowel somewhat. He will receive IV maintenance fluid. Protonix will be administered to reduce his gastric secretions. He will be provided with analgesics and anti-nausea medications as needed. He will be kept nothing by mouth (n.p.o.) otherwise. We will recheck his laboratory studies in the morning. Hopefully his obstruction will resolve as it has in the past. If this does not occur within a reasonable period of time, perhaps 24-48 hours, then surgical intervention may be necessary. The patient is agreeable with the plan as I have outlined it. [facility]
[2018-06-20 22:00] VITALS: BP 140/67
[2018-06-21 02:00] VITALS: BP 138/67
[2018-06-21] MEDS: LR 1,000 ML IV SCH ×3 (04:00→17:05)
[2018-06-21 06:00] VITALS: BP 133/63
[2018-06-21 06:05] LABS: BASO % 0.1 % (0.0-1.0); EOS # 0.1 10^3/uL (0.0-0.50); HEMATOCRIT 39.7 % (42.0-52.0); HEMOGLOBIN 13.1 g/dl (13.5-17.5); LYMPH # 0.9 10^3/uL (1.5-4.5); LYMPH % 9.7 % (24.0-44.0); MEAN CORPUSCULAR HEMOGLOBIN 29.9 pg (27.0-33.0); MEAN CORPUSCULAR VOLUME 90.6 fl (80.0-96.0); MONO % 11.7 % (0.0-5.0); NEUTROPHILS # 6.8 10^3/uL (1.8-7.7); NEUTROPHILS % 77.3 % (36.0-66.0); PLATELET COUNT, AUTOMATED 233 10^3/uL (150-450); RED BLOOD COUNT 4.38 10^6/uL (4.30-6.10); WHITE BLOOD COUNT 8.8 10^3/uL (4.0-10.0)
[2018-06-21 06:25] LABS: BLOOD UREA NITROGEN 25 MG/DL (7-18); CALCIUM LEVEL 8.6 MG/DL (8.8-10.2); CARBON DIOXIDE LEVEL 29 MEQ/L (21-32); CHLORIDE LEVEL 104 MEQ/L (98-107); CREATININE FOR GFR 1.22 MG/DL (0.70-1.30); GLOMERULAR FILTRATION RATE > 60.0 (>35); GLUCOSE, FASTING 100 MG/DL (70-100); POTASSIUM SERUM 4.1 MEQ/L (3.5-5.1); SODIUM LEVEL 140 MEQ/L (136-145)
[2018-06-21] MEDS: TIOTROPIUM INHALER/CAPSULE (SPIRIVA) INH SCH (07:43)
[2018-06-21] MEDS: PANTOPRAZOLE 40MG INJ (PROTONIX) (C9113) IV SCH (08:17)
[2018-06-21 10:00] VITALS: BP 168/75
[2018-06-21 14:00] VITALS: BP 150/64
--- NOTE | 2018-06-21 20:39 | IPN ---
DATE: 06/21/2018 HISTORY The patient was admitted yesterday late morning with evidence for a small bowel obstruction. A nasogastric tube was inserted. This morning, he reported some flatus and this afternoon he reports additional flatus though he has not yet had a bowel movement. He denies significant abdominal pain today. Vital signs: Show that he has been afebrile with a pulse in the 60s to low 80s. His blood pressure is good and his room air saturation is fine. Intake and output shows that yesterday he had 1500 in with 2000 out. Today he has had a urine output of a liter. PHYSICAL EXAMINATION The patient has been up walking around on the floor and in his room. He is alert and oriented. He appears quite comfortable. Skin: Is warm and dry. Heart exam shows a regular rate and rhythm. The abdomen is mildly protuberant but he has active bowel sounds and the abdomen is soft. LABS: Laboratory studies this morning showed his white count had fallen to 9 with a hemoglobin of 13, hematocrit of 40 and platelet count of 233,000. Differential count showed 77% neutrophils, 10% lymphocytes and 12% monocytes. Chemistry profile showed normal electrolytes with BUN of 25, creatinine 1.22 and a glucose of 100. IMPRESSION The patient has had significant flatus today and denies any abdominal pain consistent with resolution of his bowel obstruction. I will remove his NG tube this evening and allow him to take some sips of clear liquids. If he tolerates these well we can advance his diet tomorrow and I would expect he would be ready for discharge in the next 1-2 days. BOB
[2018-06-21 22:00] VITALS: BP 170/76
[2018-06-22] MEDS: LR 1,000 ML IV SCH (07:06)
[2018-06-22] MEDS: TIOTROPIUM INHALER/CAPSULE (SPIRIVA) INH SCH (07:42)
[2018-06-22] MEDS: PANTOPRAZOLE 40MG INJ (PROTONIX) (C9113) IV SCH (08:56)
[2018-06-22 14:00] VITALS: BP 133/63
--- NOTE | 2018-07-18 20:31 | DSES ---
DATE OF ADMISSION: 06/20/2018 DATE OF DISCHARGE: 06/22/2018 ADMITTING DIAGNOSIS: Small bowel obstruction secondary to adhesions. HISTORY OF THE PRESENT ILLNESS: The patient is a pleasant 78-year-old man who presented to the emergency department on the morning of 06/20/2018 complaining of abdominal distention and pain. He had some nausea but no vomiting at home, though after checking into the emergency department, he had several episodes of emesis. The patient reported a history of prior intestinal obstructions. He has been admitted several times and underwent a laparotomy most recently in February [address] Luque. This was an elective procedure when he was not acutely obstructed. He had a laparoscopic cholecystectomy for acute cholecystitis in 2011 and a robotic-assisted radical prostatectomy in August of 2014. In the emergency department, he was found to have an elevated white blood cell count of 19,000. A CT scan of the abdomen and pelvis showed dilated loops of small bowel with a short segment of distal decompressed bowel. He was admitted with a diagnosis of intestinal obstruction secondary to adhesions. HOSPITAL COURSE: The patient had a nasogastric tube placed, and he received maintenance intravenous (IV) hydration. He was provided analgesics and antinausea medications as necessary. Antibiotics were not initiated. The patient reported some flatus on the afternoon of 06/21/2018 and denied any significant abdominal pain. His NG tube was removed, and he was allowed to take some sips of clear liquids. By the following day, he and his diet was advanced. He was discharged home. FINAL DIAGNOSES: 1. Intestinal obstruction secondary to adhesions. 2. Chronic obstructive pulmonary disease. 3. Gastroesophageal reflux. 4. History of colitis. 5. Status post cardiac ablation for supraventricular tachycardia. 6. Status post radical prostatectomy. DISPOSITION: He was discharged on 06/22/2018 in good condition. He was taking a diet as tolerated. He was to followup with me in the office in 2 weeks, and to followup with his primary physician, Dr. Viki Gonzalez, as well. He was to continue his usual medications of acetaminophen, docusate, mesalamine, ranitidine, and tiotropium bromide monohydrate (Spiriva HandiHaler). He was not provided with any new prescriptions. He was advised to come to the emergency department if he had a recurrence of his symptoms.
== END 2018-06-22 17:25 | disposition home or self-care (01) | DRG 390 ==
LOC: M ED 06:32 → M ED INP 11:28 → M MS5PR 12:45
PROVIDERS: ADMIT Surgery; ATTEND Surgery
DX: K56.50 Intestinal adhesions [bands], unspecified as to partial versus complete obstruction (principal); K21.9 Gastro-esophageal reflux disease without esophagitis; J44.9 Chronic obstructive pulmonary disease, unspecified; K52.9 Noninfective gastroenteritis and colitis, unspecified; K57.90 Diverticulosis of intestine, part unspecified, without perforation or abscess without bleeding; Z90.49 Acquired absence of other specified parts of digestive tract; Z79.899 Other long term (current) drug therapy; Z88.0 Allergy status to penicillin; Z87.891 Personal history of nicotine dependence; Z90.79 Acquired absence of other genital organ(s)

== ENCOUNTER 2018-08-13 00:14 | Emergency (ER) | payer BC, MEDICARE ==
[~2018-08-13] VITALS: Ht 177.8 cm; Wt 90.9 kg
[~2018-08-13 00:14] MED LIST changes: +ACET1TAB55 PO; +MESA800T PO
[2018-08-13] MEDS ORDERED: NS 500 ML IV ONE (00:45)
[2018-08-13 00:57] LABS: BASO % 0.2 % (0.0-1.0); EOS # 0.2 10^3/uL (0.0-0.50); EOS % 1.8 % (0.0-3.0); HEMATOCRIT 41.8 % (42.0-52.0); HEMOGLOBIN 13.9 g/dl (13.5-17.5); LYMPH # 0.9 10^3/uL (1.5-4.5); MEAN CORPUSCULAR HEMOGLOBIN 30.4 pg (27.0-33.0); MEAN CORPUSCULAR HGB CONC 33.3 g/dl (32.0-36.5); MEAN CORPUSCULAR VOLUME 91.5 fl (80.0-96.0); MONO # 0.9 10^3/uL (0.0-0.8); MONO % 10.6 % (0.0-5.0); NEUTROPHILS # 6.5 10^3/uL (1.8-7.7); NEUTROPHILS % 77.2 % (36.0-66.0); PLATELET COUNT, AUTOMATED 220 10^3/uL (150-450); RED BLOOD COUNT 4.57 10^6/uL (4.30-6.10); WHITE BLOOD COUNT 8.5 10^3/uL (4.0-10.0)
[2018-08-13] MEDS: GASTROGRAFIN SOLUTION 30ML PO SCH ×2 (00:59→01:29)
[2018-08-13 01:22] LABS: ALBUMIN 3.2 GM/DL (3.2-5.2); ALT/SGPT 14 U/L (12-78); BILIRUBIN,DIRECT 0.1 MG/DL (0.0-0.2); BILIRUBIN,TOTAL 0.3 MG/DL (0.2-1.0); BLOOD UREA NITROGEN 20 MG/DL (7-18); CALCIUM LEVEL 8.7 MG/DL (8.8-10.2); CARBON DIOXIDE LEVEL 29 MEQ/L (21-32); CHLORIDE LEVEL 107 MEQ/L (98-107); CREATININE FOR GFR 1.09 MG/DL (0.70-1.30); GLOMERULAR FILTRATION RATE > 60.0 (>35); GLUCOSE, FASTING 118 MG/DL (70-100); LIPASE 111 U/L (73-393); POTASSIUM SERUM 4.1 MEQ/L (3.5-5.1); SODIUM LEVEL 144 MEQ/L (136-145); TOTAL PROTEIN 6.7 GM/DL (6.4-8.2)
[2018-08-13] MEDS ORDERED: ISOVUE-370 76% 100ML VIAL (Q9967) As Ordered ONE (02:26)
[2018-08-13] MEDS ORDERED: KETOROLAC 30 MG/ML VIAL (J1885) As Ordered ONE (03:07)
--- NOTE | 2018-08-13 03:13 | REPVR ---
EXAM: CT Abdomen and Pelvis With Contrast EXAM DATE/TIME: 08/13/2018 12:42 AM CLINICAL HISTORY: 78 years old, male; Pain; Abdominal pain; Generalized; Additional info: Eval for sbo TECHNIQUE: Axial computed tomography images of the abdomen and pelvis with intravenous contrast. All CT scans at this facility use at least one of these dose optimization techniques: automated exposure control; mA and/or kV adjustment per patient size (includes targeted exams where dose is matched to clinical indication); or iterative reconstruction. Coronal and sagittal reformatted images were created and reviewed. CONTRAST: Contrast Material: 100 ml of iso; Contrast Route: ac COMPARISON: CT ABD PELVIS W/O CONTRAST 06/20/2018 6:52 AM FINDINGS: Lower thorax: Small bilateral pleural effusions. Dependent atelectasis in the lung. Moderate sliding type gastric hiatal hernia. ABDOMEN: Liver: Normal. No mass. Gallbladder and bile ducts: Status post cholecystectomy. CBD measures 12 mm in diameter. Pancreas: Normal. No ductal dilation. Spleen: Normal. No splenomegaly. Adrenals: Normal. No mass. Kidneys and ureters: Normal. No hydronephrosis. Stomach and bowel: Colonic diverticulosis without diverticulitis. Diffuse dilated small bowel. Tapering transition point in the right mid abdomen. Triangular-shaped 18 x 10 mm dense ingested foreign body in the cecum. Appendix: Appendix is normal. PELVIS: Bladder: Unremarkable as visualized. Reproductive: Prostate is not seen. ABDOMEN and PELVIS: Intraperitoneal space: Normal. No free air. No significant fluid collection. Bones/joints: Moderate degenerative spine. Mild degenerative changes of the hips. No acute fracture. Soft tissues: There is dependent subcutaneous edema. Vasculature: Moderate atherosclerotic disease. No aortic aneurysm. Lymph nodes: Normal. No enlarged lymph nodes. IMPRESSION: Diffuse dilated small bowel. Tapering transition point in the right mid abdomen. Consistent with high-grade partial versus complete small bowel obstruction. Findings are similar to prior study. Obstruction may be secondary to enteritis or adhesions. No evidence of bowel perforation. Triangular-shaped dense ingested foreign body in the cecum. Foreign body does not appear to be causing complications. Small bilateral pleural effusions. Additional findings as described. Electronically signed by: Joselo Cruz On 08/13/2018 03:13:16 AM
[2018-08-13] MEDS ORDERED: KETOROLAC 30 MG/ML VIAL (J1885) IV ONE (03:15)
[2018-08-13] MEDS ORDERED: RANI150T PO (03:42)
[2018-08-13] MEDS ORDERED: SPIR1CAP INH (03:42)
[2018-08-13] MEDS ORDERED: MESA800T PO (03:42)
[2018-08-13 05:30] VITALS: BP 136/62
--- NOTE | 2018-08-13 12:34 | ED PDOC ---
Post-Departure Follow-Up dr gagnon faxed formal repor tof ct abd/p for fu Bon Alvarez MD Aug 13, 2018 12:34
== END 2018-08-13 06:27 | disposition home or self-care (01) ==
LOC: M ED 00:14
DX: K56.50 Intestinal adhesions [bands], unspecified as to partial versus complete obstruction (principal); R11.0 Nausea; Z87.19 Personal history of other diseases of the digestive system; K21.9 Gastro-esophageal reflux disease without esophagitis; J44.9 Chronic obstructive pulmonary disease, unspecified; Z87.891 Personal history of nicotine dependence; Z88.0 Allergy status to penicillin; Z79.899 Other long term (current) drug therapy
CPT/HCPCS: 74177; 80048; 80076; 83690; 85025; 96361; 96374; 99285; J1885; Q9963; Q9967

== ENCOUNTER → 2018-10-22 | Outpatient (REF) | payer BC ==
[~2018-10-22] MED LIST changes: -/METO25TAB PO; -/PANT40TA PO; -/TAMS4CA PO; -/TIOT18INH INH; -MESA800T PO; +MESA800T8 PO; +METO1TAB87 PO; +ONDA-227 OR; +PROT1TAB2 PO; +RANI150T PO; -ZOFR8TAB OR
[2018-10-22 13:15] LABS: BASO % 0.4 % (0.0-1.0); EOS # 0.2 10^3/uL (0.0-0.50); EOS % 2.4 % (0.0-3.0); HEMATOCRIT 40.6 % (42.0-52.0); HEMOGLOBIN 12.9 g/dl (13.5-17.5); LYMPH # 1.3 10^3/uL (1.5-4.5); LYMPH % 18.2 % (24.0-44.0); MEAN CORPUSCULAR HEMOGLOBIN 30.1 pg (27.0-33.0); MEAN CORPUSCULAR HGB CONC 31.8 g/dl (32.0-36.5); MEAN CORPUSCULAR VOLUME 94.9 fl (80.0-96.0); MONO # 0.9 10^3/uL (0.0-0.8); MONO % 12.2 % (0.0-5.0); NEUTROPHILS # 4.7 10^3/uL (1.8-7.7); NEUTROPHILS % 66.7 % (36.0-66.0); PLATELET COUNT, AUTOMATED 227 10^3/uL (150-450); RED BLOOD COUNT 4.28 10^6/uL (4.30-6.10)
[2018-10-22 13:19] LABS: ALT/SGPT 13 U/L (12-78); BILIRUBIN,TOTAL 0.6 MG/DL (0.2-1.0); BLOOD UREA NITROGEN 18 MG/DL (7-18); CALCIUM LEVEL 8.6 MG/DL (8.8-10.2); CARBON DIOXIDE LEVEL 29 MEQ/L (21-32); CHLORIDE LEVEL 105 MEQ/L (98-107); CHOLESTEROL LEVEL 135 MG/DL (<200); CHOLESTEROL RISK RATIO 3.292 (<5); CREATININE FOR GFR 1.14 MG/DL (0.70-1.30); GLOMERULAR FILTRATION RATE > 60.0 (>35); GLUCOSE, FASTING 98 MG/DL (70-100); HDL CHOLESTEROL 41 MG/DL (>40); LDL CHOLESTEROL 82 MG/DL (<100); NON-HDL-C 94 MG/DL; POTASSIUM SERUM 4.6 MEQ/L (3.5-5.1); SODIUM LEVEL 139 MEQ/L (136-145); TRIGLYCERIDES LEVEL 62 MG/DL (<150)
== END ==
LOC: M SFHCADAM 07:57
PROVIDERS: ATTEND Family Medicine
DX: R53.81 Other malaise (principal); J43.9 Emphysema, unspecified; K21.9 Gastro-esophageal reflux disease without esophagitis; Z87.898 Personal history of other specified conditions

== ENCOUNTER 2019-01-05 17:08 | Inpatient (IN) | payer BC ==
[~2019-01-05] VITALS: Ht 177.8 cm; Wt 88.6 kg
[2019-01-05 18:07] VITALS: BP 151/85
[2019-01-05 18:07] LABS: BASO % 0.2 % (0.0-1.0); EOS # 0.1 10^3/uL (0.0-0.50); EOS % 0.5 % (0.0-3.0); HEMATOCRIT 44.5 % (42.0-52.0); HEMOGLOBIN 14.8 g/dl (13.5-17.5); LYMPH # 1.3 10^3/uL (1.5-4.5); LYMPH % 8.6 % (24.0-44.0); MEAN CORPUSCULAR HEMOGLOBIN 30.3 pg (27.0-33.0); MEAN CORPUSCULAR HGB CONC 33.3 g/dl (32.0-36.5); MEAN CORPUSCULAR VOLUME 91.2 fl (80.0-96.0); MONO # 1.2 10^3/uL (0.0-0.8); MONO % 7.6 % (0.0-5.0); NEUTROPHILS # 12.6 10^3/uL (1.8-7.7); NEUTROPHILS % 82.7 % (36.0-66.0); PLATELET COUNT, AUTOMATED 297 10^3/uL (150-450); RED BLOOD COUNT 4.88 10^6/uL (4.30-6.10); WHITE BLOOD COUNT 15.2 10^3/uL (4.0-10.0)
[2019-01-05 18:30] LABS: ALBUMIN 3.7 GM/DL (3.2-5.2); ALT/SGPT 14 U/L (12-78); BILIRUBIN,DIRECT 0.2 MG/DL (0.0-0.2); BILIRUBIN,TOTAL 0.7 MG/DL (0.2-1.0); BLOOD UREA NITROGEN 16 MG/DL (7-18); CALCIUM LEVEL 9.5 MG/DL (8.8-10.2); CARBON DIOXIDE LEVEL 25 MEQ/L (21-32); CHLORIDE LEVEL 102 MEQ/L (98-107); CREATININE FOR GFR 1.12 MG/DL (0.70-1.30); GLOMERULAR FILTRATION RATE > 60.0 (>35); GLUCOSE, FASTING 114 MG/DL (70-100); LIPASE 105 U/L (73-393); SODIUM LEVEL 139 MEQ/L (136-145); TOTAL PROTEIN 7.9 GM/DL (6.4-8.2)
[2019-01-05] MEDS ORDERED: ONDANSETRON 4MG/2ML VIAL (J2405) IV ONE (18:45)
[2019-01-05] MEDS ORDERED: NS 1,000 ML IV ONE (18:45)
[2019-01-05] MEDS ORDERED: ISOVUE-370 76% 100ML VIAL (Q9967) As Ordered ONE (19:11)
[2019-01-05] MEDS: MORPHINE 2 MG/ML 1ML SYRINGE (J2270) IV PRN ×2 (19:14→20:04)
[2019-01-05 19:18] LABS: ALBUMIN 3.8 GM/DL (3.2-5.2); ALT/SGPT 16 U/L (12-78); BILIRUBIN,DIRECT 0.2 MG/DL (0.0-0.2); BILIRUBIN,TOTAL 0.8 MG/DL (0.2-1.0); CK-MB VALUE MASS 2.1 NG/ML (<3.6); CPK CREATINE PHOSPHOKINASE 83 U/L (39-308); LIPASE 110 U/L (73-393); MB/CK RELATIVE INDEX 2.53 (< OR =4); TROPONIN I < 0.02 NG/ML (< 0.10)
[2019-01-05] MEDS ORDERED: ONDANSETRON 4MG/2ML VIAL (J2405) IV PRN (20:45)
[2019-01-05] MEDS ORDERED: PERCOCET 5MG/325MG TAB PO PRN ×2 (20:45)
[2019-01-05] MEDS ORDERED: ACETAMINOPHEN TAB 650MG DOSE (2X325MG) PO PRN (20:45)
[2019-01-05] MEDS ORDERED: ALBUTEROL SULFATE 2.5 MG/0.5 ML INH NEB SOLN NEB PRN (20:45)
[2019-01-05] MEDS ORDERED: MORPHINE 4 MG/ML 1ML VIAL/SYRINGE (J2270) IV PRN (20:45)
[2019-01-05] MEDS ORDERED: PROMETHAZINE INJ 25 MG/ML VIAL (J2550) IV PRN (20:45)
--- NOTE | 2019-01-05 20:48 | HPEPDOC ---
General Surgery H&P Date of Admission Jan 05, 2019 Attending Physician: LORETA VELEZ MD History and Physical CHIEF COMPLAINT: abdominal pain HISTORY OF PRESENT ILLNESS: Patient is an 78-year-old male with multiple previous admissions for small bowel obstruction. The last one being back in June 2018. Allis obstruction seems to resolve by itself without any need for surgical intervention. He did have an elective procedure for lysis of adhesions collectively done in 2008. At time there were some adhesions of the terminal ileum to the retroperitoneum were freed up. Nevertheless this did not prevent recurrences of this obstruction. He also has had a laparoscopic cholecystectomy done in 2011. Review of the operative note at that time shows 2 were multiple adhesions left on the lower abdomen including a loop of bowel right below the umbilicus. Lysis of adhesions to the abdominal wall was also done at that time of the procedure. He has also had a robotic-assisted radical prostatectomy in 2014. This procedure was done extraperitoneal. ALLERGIES: Please see below. HOME MEDICATIONS: Please see below. PAST MEDICAL HISTORY: 1. Gastroesophageal reflux disease 2. History of supraventricular tachycardia status post ablation 3. COPD, emphysema 4. History of left sided colitis on colonoscopy was suspicious for ulcerative colitis performed by Dr. Barry. 5. Prostate cancer PAST SURGICAL HISTORY: 1. Tonsillectomy 2. Lysis of adhesions with umbilical hernia repair by Dr. Luque in 2008 3. Laparoscopic cholecystectomy and lysis of adhesion in [address] Salcedo 4. Cardiac ablation in 2011, complicated with pericardial effusion status post pericardial window 5. Carpal tunnel release, right 6. Robotic prostatectomy in 2014 PERSONAL/SOCIAL HISTORY: [Denies smoking, alcohol use, or recreational drug use]. REVIEW OF SYSTEMS: GENERAL: [Denies chills, fatigue, fever, weight gain and weight loss]. HEENT: [Denies blurred vision and double vision. Denies ear symptoms. Denies hoarseness]. NECK: [Denies any neck pain]. CARDIOVASCULAR: [Denies chest pain and palpitations]. MUSCULOSKELETAL: [Denies arthralgias, back pain and thrombophlebitis]. SKIN: [Denies rash]. NEUROLOGIC: [Denies headache, stroke and transient ischemic attack]. PSYCHIATRIC: [Denies anxiety and depression]. ENDOCRINE: [Denies thyroid disease]. HEMATOLOGY/ONCOLOGY: [Denies any bleeding or clotting disorder]. HEART: [Denies any chest pains, palpitations, paroxysmal dyspnea, orthopnea]. PULMONARY: [Denies chronic cough, dyspnea and wheezing]. GASTROINTESTINAL: [Denies rectal bleeding, family history of colon cancer, constipation, diarrhea, dysphagia, heartburn and jaundice]. GENITOURINARY: [Denies dysuria, frequency, hematuria and nocturia]. ENDOCRINE: [Denies polydipsia, polyphagia, polyuria, heat or cold intolerance]. INFECTIOUS: [Denies any recent upper respiratory tract infection, UTI, need for use of antibiotics]. NUTRITION: [Reports good appetite]. PHYSICAL EXAMINATION: VITAL SIGNS: Please see below. GENERAL APPEARANCE: [Patient seen at bedside, appears comfortable]. [Awake, alert, oriented]. HEENT: [Normocephalic, atraumatic. [place] palpebral conjunctivae. Anicteric sclerae. Lips moist]. CHEST: [No chest wall abnormalities. Normal respiratory motion/effort]. NECK: [Supple. No thyromegaly. No lymphadenopathies]. LUNGS: [Lung sounds are clear to auscultation bilaterally. No wheezing apprec iated]. HEART: [No chest wall abnormalities. Heart rate and rhythm are regular with no murmurs]. ABDOMEN: [Abdomen is obese, soft, slightly rounded. No hepatosplenomegaly. No umbilical or groin herniations, nondistended. No noticeable rebound or guarding. No grimacing with palpation. No rebound tenderness. No masses appreciated]. SKIN: [Warm, moist]. EXTREMITIES: [Extremities have no deformities. No edema identified]. NEUROLOGICAL: . ANCILLARIES: . LABORATORY DATA: Please see below. MICROBIOLOGY: Please see below. IMAGING: . IMPRESSION AND PLAN: Small bowel obstruction A nasogastric tube placed and no keeping the hospital for observation. Coughing for him as he has had multiple previous bowel obstructions though this seems to resolve easily. He had an elective lysis of adhesions done back in 2019 and there was some adhesions in the terminal ileum that was released. Unfortunately this did not prevent subsequent obstructions. Review of the medical record, operative note on his other surgery showed this he has had extensive adhesions especially noted on the operative report on his cholecystectomy in 2011. Vital Signs Vital Signs Date Time Temp Pulse Resp B/P (MAP) Pulse Ox O2 Delivery O2 Flow Rate FiO2 01/05/19 20:26 18 01/05/19 20:04 81 163/71 97 01/05/19 19:23 97.5 Room Air Laboratory Data Labs 24H Laboratory Tests 2 01/05/19 17:27: Immature Granulocyte % (Auto) 0.4, White Blood Count 15.2H, Red Blood Count 4.88, Hemoglobin 14.8, Hematocrit 44.5, Mean Corpuscular Volume 91.2, Mean Corpuscular Hemoglobin 30.3, Mean Corpuscular Hemoglobin Concent 33.3, Red Cell Distribution Width 12.5, Platelet Count 297, Neutrophils (%) (Auto) 82.7H, Lym phocytes (%) (Auto) 8.6L, Monocytes (%) (Auto) 7.6H, Eosinophils (%) (Auto) 0.5, Basophils (%) (Auto) 0.2, Neutrophils # (Auto) 12.6H, Lymphocytes # (Auto) 1.3L, Monocytes # (Auto) 1.2H, Eosinophils # (Auto) 0.1, Basophils # (Auto) 0.0, Nucleated Red Blood Cells % (auto) 0.0, Urine Color SATHISH, Urine Appearance HAZY, Urine pH 5.0, Urine Specific [place] 1.026, Urine Protein 1+H, Urine Glucose (UA) NEGATIVE, Urine Ketones TRACEH, Urine Blood NEGATIVE, Urine Nitrite NEGATIVE, Urine Bilirubin NEGATIVE, Urine Urobilinogen 2.0H, Urine Leukocyte Esterase NEGATIVE, Urine WBC (Auto) 1, Urine RBC (Auto) 7H, Urine Hyaline Casts (Auto) 0, Urine Bacteria (Auto) NEGATIVE, Urine Squamous Epithelial Cells 1, Urine Mucus (Auto) MODERATE, Urine Sperm (Auto) , Anion Gap 12, Glomerular Filtration Rate > 60.0, Calcium Level 9.5, Aspartate Amino Transf (AST/SGOT) 17, Alanine Aminotransferase (ALT/SGPT) 16, Alkaline Phosphatase 78, Total Bilirubin 0.8, Direct Bilirubin 0.2, Total Creatine Kinase 83, Creatine Kinase MB 2.1, Creatine Kinase MB Relative Index 2.53, Troponin I < 0.02, Total Protein 8.0, Albumin 3.8, Albumin/Globulin Ratio 0.90L, Lipase 110 CBC/BMP Laboratory Tests 01/05/19 17:27 Red Blood Count 4.88, Mean Corpuscular Volume 91.2, Mean Corpuscular Hemoglobin 30.3, Mean Corpuscular Hemoglobin Concent 33.3, Red Cell Distribution Width 12.5, Neutrophils (%) (Auto) 82.7 H, Lymphocytes (%) (Auto) 8.6 L, Monocytes (%) (Auto) 7.6 H, Eosinophils (%) (Auto) 0.5, Basophils (%) (Auto) 0.2, Neutrophils # (Auto) 12.6 H, Lymphocytes # (Auto) 1.3 L, Monocytes # (Auto) 1.2 H, E osinophils # (Auto) 0.1, Basophils # (Auto) 0.0 Home Medications Scheduled Docusate Sodium (Docusate Sodium) 100 Mg Cap, 100 MG PO DAILY, (Reported) Mesalamine (Mesalamine) 800 Mg Tab, 800 MG PO DAILY, (Reported) Ranitidine HCl (Ranitidine HCl) 150 Mg Tab, 1 TAB PO DAILY, (Reported) Tiotropium [place] (Spiriva) 18 Mcg Cap, 1 INHALATION INH DAILY, (Reported) Scheduled PRN Acetaminophen (Acetaminophen) 325 Mg Tab, 650 MG PO Q4H PRN for PAIN / FEVER, (Reported) Ranitidine HCl (Ranitidine HCl) 150 Mg Tab, 1 TAB PO DAILY PRN for ACID REFLUX, (Reported) Allergies Coded Allergies: Penicillins (Verified Allergy, Intermediate, swelling, 01/05/19) A-FIB/CHADSVASC A-FIB History Current/History of A-Fib/PAF?: No Current PO Anticoag Therapy: LORETA Gayle MD Jan 05, 2019 20:48
--- NOTE | 2019-01-05 20:53 | REPVR ---
EXAM: CT Abdomen and Pelvis With Contrast EXAM DATE/TIME: 01/05/2019 7:29 PM CLINICAL HISTORY: 78 years old, male; Abdominal pain; Generalized; Additional info: Obstruction TECHNIQUE: Imaging protocol: Axial computed tomography images of the abdomen and pelvis with intravenous contrast. Coronal and sagittal reformatted images were created and reviewed. Radiation optimization: All CT scans at this facility use at least one of these dose optimization techniques: automated exposure control; mA and/or kV adjustment per patient size (includes targeted exams where dose is matched to clinical indication); or iterative reconstruction. Contrast material: ISOVUE 370; Contrast volume: 100 ml; Contrast route: IV; COMPARISON: CT ABD/PEL W/IV ORAL CONTRAS 08/13/2018 2:24 AM FINDINGS: Lungs: There is some stranding density in the lung bases. Pleural space: There is mild bibasilar pleural thickening. Heart: The heart is normal in size and there is no pericardial effusion. Liver: Normal appearing liver. Gallbladder and bile ducts: There are surgical clips in the gallbladder fossa and the patient is post cholecystectomy. Mild prominence of the intrahepatic bile ducts of the left lobe of the liver. The common bile duct is normal in size. Pancreas: Normal appearing pancreas. Spleen: Normal size spleen. Adrenals: Normal adrenal glands. Kidneys and ureters: Enhancement of the kidneys. There is no evidence of stone at the right or left ureter. Normal appearing kidneys. Stomach and bowel: There is a small hiatal hernia with reflux of secretions from the stomach. There are numerous diverticula of the left colon and no evidence of diverticulitis. There is severe distention of the stomach with secretions and an air fluid level. There is moderate to severe distention of multiple loops of small bowel with air-fluid levels. There is severe distention of the stomach and duodenal bulb with secretions. There is a transition zone from the nondistended ileum to distended ileum at the right lower quadrant. It is suspicious for complete or partial small bowel obstruction. Secretions are followed throughout dilated small bowel and the distal ileum demonstrates enhancement of the margins and the transition. Oral contrast with a followup CT might give additional information. Intraperitoneal space: Normal. No free air. No significant fluid collection. Vasculature: There is opacification of the aorta which appears normal in size. Lymph nodes: There is no evidence of lymphadenopathy. Bladder: Unremarkable as visualized. Reproductive: Normal size prostate. Bones/joints: No acute fracture. No dislocation. Soft tissues: Unremarkable. IMPRESSION: Severe distention of the stomach with secretions. Moderate to severe distention of much of the small bowel with secretions and air-fluid levels. There is a transition zone at the right lower quadrant to nondistended marginally enhancing ileum. This is suspicious for a complete or partial small bowel obstruction. Electronically signed by: Bro Pagan On 01/05/2019 20:52:57 PM
[2019-01-05] MEDS: LR 1,000 ML IV SCH (21:07)
[2019-01-05 22:43] VITALS: BP 138/62
[2019-01-06] MEDS: LR 1,000 ML IV SCH ×3 (04:34→20:34)
[2019-01-06 05:39] VITALS: BP 122/48
[2019-01-06 06:18] LABS: BASO % 0.1 % (0.0-1.0); EOS % 0.1 % (0.0-3.0); HEMOGLOBIN 13.4 g/dl (13.5-17.5); LYMPH # 0.5 10^3/uL (1.5-4.5); LYMPH % 2.9 % (24.0-44.0); MEAN CORPUSCULAR HEMOGLOBIN 30.7 pg (27.0-33.0); MEAN CORPUSCULAR HGB CONC 33.5 g/dl (32.0-36.5); MEAN CORPUSCULAR VOLUME 91.7 fl (80.0-96.0); MONO # 1.5 10^3/uL (0.0-0.8); MONO % 9.5 % (0.0-5.0); NEUTROPHILS # 13.7 10^3/uL (1.8-7.7); PLATELET COUNT, AUTOMATED 229 10^3/uL (150-450); RED BLOOD COUNT 4.36 10^6/uL (4.30-6.10); WHITE BLOOD COUNT 15.7 10^3/uL (4.0-10.0)
[2019-01-06 06:43] LABS: BLOOD UREA NITROGEN 19 MG/DL (7-18); CALCIUM LEVEL 8.6 MG/DL (8.8-10.2); CARBON DIOXIDE LEVEL 28 MEQ/L (21-32); CHLORIDE LEVEL 106 MEQ/L (98-107); CREATININE FOR GFR 1.05 MG/DL (0.70-1.30); GLOMERULAR FILTRATION RATE > 60.0 (>35); GLUCOSE, FASTING 109 MG/DL (70-100); POTASSIUM SERUM 4.2 MEQ/L (3.5-5.1); SODIUM LEVEL 139 MEQ/L (136-145)
[2019-01-06] MEDS: PANTOPRAZOLE 40MG INJ (PROTONIX) (C9113) IV SCH (08:27)
[2019-01-06] MEDS: ENOXAPARIN 40 MG/0.4 ML SYRINGE (J1650) SC SCH (08:28)
[2019-01-06 11:25] VITALS: BP 143/65
[2019-01-06 19:58] VITALS: BP 127/64
[2019-01-07 04:00] VITALS: BP 119/58
[2019-01-07] MEDS: LR 1,000 ML IV SCH ×2 (05:01→12:34)
[2019-01-07 05:10] LABS: BASO % 0.3 % (0.0-1.0); EOS # 0.1 10^3/uL (0.0-0.50); EOS % 1.5 % (0.0-3.0); HEMATOCRIT 34.7 % (42.0-52.0); HEMOGLOBIN 11.5 g/dl (13.5-17.5); LYMPH # 0.8 10^3/uL (1.5-4.5); LYMPH % 10.2 % (24.0-44.0); MEAN CORPUSCULAR HEMOGLOBIN 30.8 pg (27.0-33.0); MEAN CORPUSCULAR HGB CONC 33.1 g/dl (32.0-36.5); MONO # 0.8 10^3/uL (0.0-0.8); MONO % 11.4 % (0.0-5.0); NEUTROPHILS # 5.6 10^3/uL (1.8-7.7); NEUTROPHILS % 76.5 % (36.0-66.0); PLATELET COUNT, AUTOMATED 187 10^3/uL (150-450); RED BLOOD COUNT 3.73 10^6/uL (4.30-6.10); WHITE BLOOD COUNT 7.3 10^3/uL (4.0-10.0)
[2019-01-07 05:27] LABS: BLOOD UREA NITROGEN 24 MG/DL (7-18); CALCIUM LEVEL 8.5 MG/DL (8.8-10.2); CARBON DIOXIDE LEVEL 28 MEQ/L (21-32); CHLORIDE LEVEL 107 MEQ/L (98-107); GLOMERULAR FILTRATION RATE > 60.0 (>35); GLUCOSE, FASTING 78 MG/DL (70-100); SODIUM LEVEL 141 MEQ/L (136-145)
[2019-01-07 08:00] VITALS: BP 135/62
[2019-01-07] MEDS: ENOXAPARIN 40 MG/0.4 ML SYRINGE (J1650) SC SCH (08:05)
[2019-01-07] MEDS: PANTOPRAZOLE 40MG INJ (PROTONIX) (C9113) IV SCH (08:05)
[2019-01-07] MEDS ORDERED: BISACODYL 10 MG SUPP PR ONE (09:00)
[2019-01-07] MEDS ORDERED: MOM 30ML SUSPENSION UDC PO ONE (09:00)
--- NOTE | 2019-01-07 09:09 | REP ---
REASON: Followup SBO. COMPARISON: 03/18/2017, the latest prior, a KUB. The accompanying frontal view of the chest has been compared to the previous two-view examination of the chest of 03/15/2017. There are chronic lung base changes, status quo. There is no evidence of free air density beneath the diaphragmatic surface of either lung. The intestinal gas pattern is nonspecific. There is no evidence of free intraperitoneal air or intestinal obstruction. Chronic change is seen involving the spine and hips. IMPRESSION: No evidence of acute disease. Electronically Signed by Kolby Guido DO 01/07/2019 10:04 A
--- NOTE | 2019-01-07 11:28 | IPNPDOC ---
Subjective General Date/Time Seen The patient was seen on 01/07/19 at 11:13. Subject Chief Complaint/History The patient is a 78-year-old male admitted with a reason for visit of Sbo (Small Bowel Obstruction). Patient reports he's feeling better. He is passing a lot of flatus now the stylette a bowel movement. He still 90 any further abdominal discomfort, nausea or vomiting. Current Medications Current Medications Current Medications Acetaminophen (Tylenol Tab) 650 mg Q4HP PRN PO MILD PAIN or TEMP > 101; Start 01/05/19 at 20:45 Albuterol Sulfate (Proventil Neb) 2.5 mg Q4HP PRN NEB sob; Start 01/05/19 at 20:45 Enoxaparin Sodium (Lovenox) 40 mg DAILY SC Last administered on 01/07/19at 08:05; Start 01/06/19 at 09:00 Home Med (Med Rec Complete!) ASDIRECTED XX ; Start 01/05/19 at 21:15; Stop 01/05/19 at 21:17; Status DC Lactated Ringer's 1,000 ml @ 125 mls/hr Q8H IV Last administered on 01/07/19at 05:01; Start 01/05/19 at 20:34 Morphine Sulfate (Morphine Sulfate Inj) 2 mg Q30M PRN IV MODERATE PAIN (PS 5-7) Last administered on 01/05/19at 20:04; Start 01/05/19 at 18:45; Stop 01/05/19 at 20:04; Status DC Morphine Sulfate (Morphine Sulfate Inj) 4 mg Q2HP PRN IV SEVERE PAIN (PS 8-10) Last administered on 01/06/19at 00:16; Start 01/05/19 at 20:45 Ondansetron HCl (ZOFRAN INJection) 4 mg Q6HP PRN IV NAUSEA OR VOMITING; Start 01/05/19 at 20:45 Oxycodone/ Acetaminophen (Percocet 5mg/ 325mg Tablet) 1 tab Q4HP PRN PO MODERATE PAIN (PS 5-7) Last administered on 01/05/19at 23:12; Start 01/05/19 at 20:45 Oxycodone/ Acetaminophen (Percocet 5mg/ 325mg Tablet) 2 tab Q6HP PRN PO SEVERE PAIN (PS 8-10); Start 01/05/19 at 20:45 Pantoprazole Sodium (Protonix) 40 mg DAILY IV Last administered on 01/07/19at 08:05; Start 01/06/19 at 09:00 Promethazine HCl (PHENERGAN INJection) 12.5 mg Q6HP PRN IV NAUSEA; Start 01/05/19 at 20:45 Allergies Coded Allergies: Penicillins (Verified Allergy, Intermediate, swelling, 01/05/19) Objective Physical Examination Examination GENERAL APPEARANCE: Patient seen sitting up on the chair appears very comfortable. SKIN: Warm and dry. HEENT: Nasogastric tube is currently clamped.. NECK: Supple, no thyromegaly. No obvious jugular venous distention. LUNGS: Clear to auscultation bilaterally. No wheezing appreciated. HEART: No chest wall abnormalities. Regular rate and rhythm with no murmurs appreciated. ABDOMEN: Abdomen is moderately rounded, soft, minimally distended. Active bowel sounds. Nontender on palpation. EXTREMITIES: Extremities have no deformities. No edema identified. Vital Signs Vital Signs Date Time Temp Pulse Resp B/P (MAP) Pulse Ox O2 Delivery O2 Flow Rate FiO2 01/07/19 08:00 97.2 109 18 135/62 (86) 99 01/05/19 20:48 Room Air I&Os I&O- Last 24 Hours up to 6 AM 01/07/19 05:59 Intake Total 1550 ml Output Total 1635 ml Balance -85 ml NG tube recorded 1100 output yesterday but none so far overnight Laboratory Data Labs 24H Laboratory Tests 2 01/07/19 04:30: Immature Granulocyte % (Auto) 0.1, White Blood Count 7.3, Red Blood Count 3.73L, Hemoglobin 11.5L, Hematocrit 34.7L, Mean Corpuscular Volume 93.0, Mean Corpuscular Hemoglobin 30.8, Mean Corpuscular Hemoglobin Concent 33.1, Red Cell Distribution Width 12.7, Platelet Count 187, Neutrophils (%) (Auto) 76.5H, Lymphocytes (%) (Auto) 10.2L, Monocytes (%) (Auto) 11.4H, Eosinophils (%) (Auto) 1.5, Basophils (%) (Auto) 0.3, Neutrophils # (Auto) 5.6, Lymphocytes # (Auto) 0.8L, Monocytes # (Auto) 0.8, Eosinophils # (Auto) 0.1, Basophils # (Auto) 0.0, Nucleated Red Blood Cells % (auto) 0.0, Anion Gap 6L, Glomerular Filtration Rate > 60.0, Blood Urea Nitrogen 24H, Creatinine 0.90, Sodium Level 141, Potassium Level 4.0, Chloride Level 107, Carbon Dioxide Level 28, Calcium Level 8.5L CBC/BMP Laboratory Tests 01/07/19 04:30 Red Blood Count 3.73 L, Mean Corpuscular Volume 93.0, Mean Corpuscular Hemoglobin 30.8, Mean Corpuscular Hemoglobin Concent 33.1, Red Cell Distribution Width 12.7, Neutrophils (%) (Auto) 76.5 H, Lymphocytes (%) (Auto) 10.2 L, Monoc ytes (%) (Auto) 11.4 H, Eosinophils (%) (Auto) 1.5, Basophils (%) (Auto) 0.3, Neutrophils # (Auto) 5.6, Lymphocytes # (Auto) 0.8 L, Monocytes # (Auto) 0.8, Eosinophils # (Auto) 0.1, Basophils # (Auto) 0.0, Calcium Level 8.5 L Impression Small bowel obstruction We'll continue to clamp his NG tube and see how he tolerates. I'll give him a dose of MiraLAX and Dulcolax suppository to help move his bowels. He seems to be resolving his bowel obstruction by himself. If he tolerates clamping we'll discontinue this and start him on clears. He reviewed the x-ray with him and thi s does not show any obstructive patterns at this point. Plan / VTE VTE Prophylaxis Ordered?: Yes LORETA VELEZ MD Jan 07, 2019 11:28
[2019-01-07 12:00] VITALS: BP 151/67
[2019-01-07] MEDS ORDERED: SLF 3 ML SYR IV PRN (18:00)
[2019-01-07 19:56] VITALS: BP 129/63
[2019-01-07] MEDS: SLF 3 ML SYR IV SCH (20:49)
[2019-01-08 04:00] VITALS: BP 134/61
[2019-01-08] MEDS: SLF 3 ML SYR IV SCH (05:45)
[2019-01-08 05:49] LABS: BASO % 0.1 % (0.0-1.0); EOS # 0.1 10^3/uL (0.0-0.50); HEMOGLOBIN 11.4 g/dl (13.5-17.5); LYMPH # 0.9 10^3/uL (1.5-4.5); LYMPH % 11.2 % (24.0-44.0); MEAN CORPUSCULAR HEMOGLOBIN 30.1 pg (27.0-33.0); MEAN CORPUSCULAR HGB CONC 33.5 g/dl (32.0-36.5); MEAN CORPUSCULAR VOLUME 89.7 fl (80.0-96.0); MONO % 11.5 % (0.0-5.0); NEUTROPHILS # 6.3 10^3/uL (1.8-7.7); NEUTROPHILS % 75.8 % (36.0-66.0); PLATELET COUNT, AUTOMATED 199 10^3/uL (150-450); RED BLOOD COUNT 3.79 10^6/uL (4.30-6.10); WHITE BLOOD COUNT 8.3 10^3/uL (4.0-10.0)
[2019-01-08 06:04] LABS: BLOOD UREA NITROGEN 15 MG/DL (7-18); CALCIUM LEVEL 8.4 MG/DL (8.8-10.2); CARBON DIOXIDE LEVEL 30 MEQ/L (21-32); CHLORIDE LEVEL 104 MEQ/L (98-107); CREATININE FOR GFR 0.96 MG/DL (0.70-1.30); GLOMERULAR FILTRATION RATE > 60.0 (>35); GLUCOSE, FASTING 105 MG/DL (70-100); POTASSIUM SERUM 3.8 MEQ/L (3.5-5.1); SODIUM LEVEL 139 MEQ/L (136-145)
[2019-01-08] MEDS: ENOXAPARIN 40 MG/0.4 ML SYRINGE (J1650) SC SCH (08:09)
[2019-01-08] MEDS: PANTOPRAZOLE 40MG INJ (PROTONIX) (C9113) IV SCH (08:09)
--- NOTE | 2019-01-08 10:34 | DS.PDOC ---
Discharge Summary General Date of Admission Jan 05, 2019 at 20:34 Date of Discharge January 08, 2019 Attending Physician: LORETA VELEZ MD Discharge Summary PROCEDURES PERFORMED DURING STAY: None. ADMITTING DIAGNOSES: 1. small bowel obstruction secondary to adhesions. DISCHARGE DIAGNOSES: 1. small bowel obstruction resolved. COMPLICATIONS/CHIEF COMPLAINT: Sbo (Small Bowel Obstruction). HISTORY OF PRESENT ILLNESS: . HOSPITAL COURSE: . DISCHARGE MEDICATIONS: Please see below. ALLERGIES: Please see below. PHYSICAL EXAMINATION ON DISCHARGE: VITAL SIGNS: Please see below. GENERAL: HEENT: NECK: CARDIOVASCULAR EXAMINATION: RESPIRATORY EXAMINATION: ABDOMINAL EXAMINATION: EXTREMITIES: SKIN: NEUROLOGICAL EXAMINATION: PSYCHIATRIC EXAMINATION: LABORATORY DATA: Please see below. IMAGING: CT scan abdomen and pelvis on ER presentation PROGNOSIS: good, at risk for recurrent obstructions ACTIVITY: As tolerated. DIET: as tolerated DISCHARGE PLAN: ok to discharge home, follow up as needed bases DISPOSITION: . DISCHARGE INSTRUCTIONS: 1. as above. ITEMS TO FOLLOWUP ON ON OUTPATIENT: 1. none. DISCHARGE CONDITION: Stable. TIME SPENT ON DISCHARGE: Greater than 20 minutes. Vital Signs/I&Os Vital Signs Date Time Temp Pulse Resp B/P (MAP) Pulse Ox O2 Delivery O2 Flow Rate FiO2 01/08/19 04:00 99.3 67 134/61 (85) 18 01/07/19 19:56 20 01/05/19 20:48 Room Air I&O- Last 24 Hours up to 6 AM 01/08/19 06:00 Intake Total 1340 ml Output Total 875 ml Balance 465 ml Laboratory Data Labs 24H Laboratory Tests 2 01/08/19 05:16: Immature Granulocyte % (Auto) 0.4, White Blood Count 8.3, Red Blood Count 3.79L, Hemoglobin 11.4L, Hematocrit 34.0L, Mean Corpuscular Volume 89.7, Mean Corpuscular Hemoglobin 30.1, Mean Corpuscular Hemoglobin Concent 33.5, Red Cell Distribution Width 12.6, Platelet Count 199, Neutrophils (%) (Auto) 75.8H, Lymphocytes (%) (Auto) 11.2L, Monocytes (%) (Auto) 11.5H, Eosinophils (%) (Auto) 1.0, Basophils (%) (Auto) 0.1, Neutrophils # (Auto) 6.3, Lymphocytes # (Auto) 0.9L, Monocytes # (Auto) 1.0H, Eosinophils # (Auto) 0.1, Basophils # (Auto) 0.0, Nucleated Red Blood Cells % (auto) 0.0, Anion Gap 5L, Glomerular Filtration Rate > 60.0, Blood Urea Nitrogen 15, Creatinine 0.96, Sodium Level 139, Potassium Level 3.8, Chloride Level 104, Carbon Dioxide Level 30, Calcium Level 8.4L CBC/BMP Laboratory Tests 01/08/19 05:16 Red Blood Count 3.79 L, Mean Corpuscular Volume 89.7, Mean Corpuscular Hemoglobin 30.1, Mean Corpuscular Hemoglobin Concent 33.5, Red Cell Distribution Width 12.6, Neutrophils (%) (Auto) 75.8 H, Lymphocytes (%) (Auto) 11.2 L, Mon ocytes (%) (Auto) 11.5 H, Eosinophils (%) (Auto) 1.0, Basophils (%) (Auto) 0.1, Neutrophils # (Auto) 6.3, Lymphocytes # (Auto) 0.9 L, Monocytes # (Auto) 1.0 H, Eosinophils # (Auto) 0.1, Basophils # (Auto) 0.0, Calcium Level 8.4 L Discharge Medications Scheduled Docusate Sodium (Docusate Sodium) 100 Mg Cap, 100 MG PO DAILY, (Reported) Mesalamine (Mesalamine) 800 Mg Tab, 800 MG PO DAILY, (Reported) Ranitidine HCl (Ranitidine HCl) 150 Mg Tab, 1 TAB PO DAILY, (Reported) Tiotropium [place] (Spiriva) 18 Mcg Cap, 1 CAP INH DAILY, (Reported) Scheduled PRN Acetaminophen (Acetaminophen) 325 Mg Tab, 650 MG PO Q4H PRN for PAIN / FEVER, (Reported) Ranitidine HCl (Ranitidine HCl) 150 Mg Tab, 1 TAB PO DAILY PRN for ACID REFLUX, (Reported) Allergies Coded Allergies: Penicillins (Verified Allergy, Intermediate, swelling, 01/05/19) LORETA VELEZ MD Jan 08, 2019 10:34
== END 2019-01-08 11:14 | disposition home or self-care (01) | DRG 247 ==
LOC: M ED 17:08 → M ED INP 20:34 → M MS5PR 22:20 → M PCU 01-06 11:20
PROVIDERS: ADMIT Surgery; ATTEND Surgery
DX: K56.50 Intestinal adhesions [bands], unspecified as to partial versus complete obstruction (principal); J43.9 Emphysema, unspecified; Z88.0 Allergy status to penicillin; Z79.899 Other long term (current) drug therapy; K21.9 Gastro-esophageal reflux disease without esophagitis; Z85.46 Personal history of malignant neoplasm of prostate

== ENCOUNTER 2019-06-26 05:57 | Day surgery (SDC) | payer BC ==
[~2019-06-26] VITALS: Ht 177.8 cm; Wt 94.3 kg
[~2019-06-26 05:57] MED LIST changes: +RANI-397 PO; -RANI1TAB6 PO; +VENTAER INH
[2019-06-26] MEDS ORDERED: LR 1,000 ML IV ONE (06:00)
[2019-06-26] MEDS ORDERED: DUOVISC (0.50ML VISCOAT/0.55ML PROVISC) OPHTH KIT As Ordered ONE (06:21)
[2019-06-26] MEDS ORDERED: POVIDONE-IODINE 5% OPHTH PREP SOL 30ML As Ordered ONE (06:21)
[2019-06-26] MEDS ORDERED: BSS IRR 500ML/OMIDRIA 4ML IRR BAG (OR ONLY) (J1097 PER ML) As Ordered ONE (06:30)
[2019-06-26] MEDS ORDERED: OFLOXACIN 0.3 % (OCUFLOX) OPTH SOL 5ML OD ONE (07:00)
[2019-06-26] MEDS ORDERED: PROPARACAINE 0.5% OPHTH SOL 15ML OD ONE (07:00)
[2019-06-26] MEDS ORDERED: PHENYLEPHRINE 2.5% OPHTH SOL 2ML OD ONE (07:00)
[2019-06-26] MEDS ORDERED: TROPICAMIDE 1% OPHTH SOLN 2ML OD ONE (07:00)
[2019-06-26] MEDS ORDERED: MIDAZOLAM INJ 2 MG/2 ML VIAL (J2250) As Ordered ONE (07:14)
[2019-06-26 08:28] VITALS: BP 152/68
--- NOTE | 2019-06-27 19:50 | RO ---
DATE OF PROCEDURE: 06/26/2019 PREOPERATIVE DIAGNOSIS: 1. Visually significant nuclear sclerotic cataract right eye. POSTOPERATIVE DIAGNOSIS: 1. Visually significant nuclear sclerotic cataract right eye. PROCEDURE: 1. Cataract extraction with use of phacoemulsification and placement of intraocular lens, AU00T0, 19.5 D, right eye. SURGEON: Aden Barry DO BUSINESS LIAISON OFFICER: None. ANESTHESIA: Local with monitored anesthesia care (MAC), Omidria (4mL/500mL) (Omeros) COMPLICATIONS: None. POSTOPERATIVE CONDITION: Stable. INDICATIONS FOR SURGERY: 1. Blurred vision affecting patients activities of daily living. DESCRIPTION OF PROCEDURE: The patient was seen in the preoperative area and properly identified. The correct operative eye was identified and marked. The patient received topical anesthetic, antibiotics, and topical dilating drops. The patient was then transferred to the operating room. The correct side was re-identified, and a time-out was performed. The eye was prepped and draped in a sterile fashion. The eyelids were isolated with Tegaderm tape, and the lids were held open with an adjustable speculum. A 1.0 mm paracentesis incision was made. Intraocular preservative-free Shugarcaine was then injected into the anterior chamber. Viscoelastic was then injected into the anterior chamber through the paracentesis. Using a 2.4 mm sharp-tipped keratome, the anterior chamber was entered via a temporal clear cornea incision. A continuous curvilinear capsulorrhexis was created with Utrata forceps. Hydrodissection was performed with balanced salt solution (BSS) on a blunt cannula until the nucleus was able to rotate freely. The crystalline lens was phacoemulsified and aspirated. Irrigation/aspiration was used to remove the cortical material. Cohesive viscoelastic was placed into the capsular bag to deepen it. The implant was placed into the capsular bag and allowed to unfold. Placement was confirmed by visualizing the anterior capsulorrhexis. Irrigation/aspiration was used to remove the viscoelastic. The clear corneal incision was hydrated with BSS on a blunt cannula. The lens was well positioned. The incisions were then tested for leaks and found to be negative. Cefuroxime was injected into the anterior chamber. The eye was then palpated for appropriate pressure and adjusted accordingly with BSS. The eyelid speculum was then carefully removed. A shield was placed over the eye. The patient tolerated the procedure well and was discharged to the recovery unit in a stable condition. BOB
== END 2019-06-26 09:35 | disposition home or self-care (01) ==
LOC: M SDC 05:57
PROVIDERS: ATTEND Ophthalmology
DX: H25.11 Age-related nuclear cataract, right eye (principal); I48.91 Unspecified atrial fibrillation; K21.9 Gastro-esophageal reflux disease without esophagitis; Z86.19 Personal history of other infectious and parasitic diseases; K52.9 Noninfective gastroenteritis and colitis, unspecified; G43.709 Chronic migraine without aura, not intractable, without status migrainosus; G43.B0 Ophthalmoplegic migraine, not intractable; J43.9 Emphysema, unspecified; Z87.891 Personal history of nicotine dependence; Z88.0 Allergy status to penicillin; Z79.899 Other long term (current) drug therapy; Z79.1 Long term (current) use of non-steroidal anti-inflammatories (NSAID); Z85.46 Personal history of malignant neoplasm of prostate
CPT/HCPCS: 66984; J1097; J2250

== ENCOUNTER → 2020-08-04 | Outpatient (CLI) | payer BC ==
[~2020-08-04] MED LIST changes: +RANI15TA PO
== END ==
LOC: M LABSMTC 10:01
PROVIDERS: ATTEND Anesthesiology
DX: Z01.812 Encounter for preprocedural laboratory examination (principal); Z20.822 Contact with and (suspected) exposure to COVID-19

== ENCOUNTER 2020-08-09 12:43 | Day surgery (SDC) | payer BC ==
[~2020-08-09] VITALS: Ht 177.8 cm; Wt 91.6 kg
[~2020-08-09 12:43] MED LIST changes: +NS 1,000 ML IV ONE
--- OUTSIDE RECORDS SUMMARY | 2020-08-09 13:11 | CCD ---
Author Author [facility] Organization [facility] Address Unknown Phone Unavailable Care Team Providers Care Fabric Designer Name Role Phone Viki Carter Unavailable PROBLEMS Type Condition ICD9-CM Code [id number] Code Onset Dates Condition S tatus SNOMED Code Notes Problem Elevated PSA (prostate specific antigen) 790.93 Active 962770355 Problem Urinary frequency 788.41 Active 751522047 Problem History of prostate cancer Z85.46 Active 83653 2007 Problem Incontinence of feces, unspecified fecal incontinence type R15.9 Active 13977473 Problem 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 [address] [place] [address] May, Vikidot Gonzalez-Tartell Incontinence of feces, unspecified fecal incontinence type R15.9 IMMUNIZATIONS Vaccine Route Administration Date Status Influenza (Pharmacy Given) Unknown Mar 28, 2018 Admin istered Pneumococcal 0.5mL (Prevnar 13) Unknown Jul 01, 2016 Administered Influenza (6mo & up) Fluzone Unknown Jul 02, 2015 Ref used Influenza (6mo & up) Fluzone Unknown October 07, 2014 Ref used Influenza (6mo & up) Fluzone Unknown September 11, 2014 Ref used Influenza (6mo & up) Fluzone Unknown Aug 10, 2014 Ref used SOCIAL HISTORY Tobacco Use: Social History Observation Description Date Details (start date - stop date) Former Smoker Sex Assigned At : Social History Observation Description Sex Assigned At Unknown Education: Question Answer Notes Level of Education: High School Audit Question Answer Notes Total Score: 0 Interpretation: Alcohol Education Drug and Alcohol Question Answer Notes Total Score: 0 Interpretation: No problems reported Alcohol Screening: Question Answer Notes Did you have a drink containing alcohol in the past year? No Points 0 Interpretation Negative BMI Care Goal Follow-Up Question Answer Notes Above Normal BMI Follow-Up Giving encouragement to exercise Tobacco Use: Question Answer Notes Are you a: former smoker How long has it been since you last smoked? > 10 years quit 1991 REASON FOR REFERRAL No Information VITAL SIGNS No information MEDICATIONS Medication SIG (Take, Route, Frequency, Duration) Notes Start Da te End Date Status Spiriva HandiHaler 18 MCG 1 capsule by mouth Inhalation Once a day for 90 days Active Colace 100 MG 1 capsule as needed Orally Once a day Active MiraLax 17 GM/SCOOP 1 capful Orally Daily for 30 Days 23 2019 Active Omeprazole 20 MG 1 capsule 30 minutes before morning meal Orally Once a day for 90 day(s) October, Active Tylenol 325 MG 2 tablets as needed Orally every 4 hrs for pain/ fever Active Asacol 800 mg 1 tablet Orally twice daily for 90 day(s) Active PROCEDURES No Information RESULTS No Results REASON FOR VISIT 2 week follow up -7699 MEDICAL (GENERAL) HISTORY Type Description Date Medical History GERD Medical History atrial tachycardia, s/p ablation Medical History Emphysema Medical History multiple bowel obstructions requiring hospital admission, most resolving with decompression, once with lysis of adhesions, no rsxn Medical History diverticulosis without history of divert iculitis Medical History history of colitis, controlled on Asacol Medical History COPD Medical History right bundle branch block Medical History C. diff Medical History "infectious hepatitis" in the 1960s Medical History prostate cancer, s/p prostatectomy Medical History MRI L spine with minimal can al stenosis L1-L4, diffuse disc bulge L4-5 with compression of L4 nerves, diffuse disc bulge L5-S1 (01/2016) Medical History DJD including L knee arthritis Surgical History Tonsillectomy Surgical History Biopsy, Liver x2 1959 Surgical History Umbilical Hernia Repair w/Lysis of Adhes ions 2008 Surgical History colonoscopy 2008 Surgical History cholecystectomy 2011 Surgical History Cardiac ablation x 2, once c omplicated by hemopericardium and cardiac tamponade Jan 2012 Surgical History Carpal tunnel right 05/13/14 Surgical History Robotic prostatectomy 09/01/14 Surgical History cataract 07/07, 06/05 Hospitalization History Surgical Related Hospitalization History Septicemia 07/04/14 Hospitalization History bowel obstruction 01/03 Goals Section No Information Health Concerns No Information MEDICAL EQUIPMENT No Information MENTAL STATUS No Information FUNCTIONAL STATUS No Information ASSESSMENTS Encounter Date Diagnosis Assessment Notes Treatment Notes Treatm ent Clinical Notes May, Incontinence of feces, unspe cified fecal incontinence type (ICD-10 - R15.9) Encouraged him to not limit the quantity that he eats. We will follow up on his GI referral. OK for altered dose of Miralax. PLAN OF TREATMENT Medication Medication Name Sig Start Date Stop Date Omeprazole 20 MG 1 capsule 30 minutes before morning meal Orally Once a day for 90 day(s) October, Treatment Notes Assessment Notes Clinical Notes Incontinence of feces, unspecified fecal incontinence type Encouraged him to not limit the quantity that he eats. We will follow up on his GI referral. OK for altered dose of Miralax. Insurance Providers Payer Name Payer Address Payer Phone Insured Name Patient Relati onship to Insured Coverage Start Date Coverage End Date LUIS FELIPE QUIROS [place] [address] [address] [facility] [id number] SHRUTI VIVEROS
--- OUTSIDE RECORDS SUMMARY | 2020-08-09 13:11 | CCD ---
Author Author [facility] Organization 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 [address] [place] [address] May, Viki Carter IMMUNIZATIONS Vaccine Route Administration Date Status Influenza [...] 1 capful Orally Daily for 30 Days 2019 Active Omeprazole 20 MG 1 capsule 30 minutes before morning meal Orally Once a day for 90 day(s) October, Active Tylenol 325 MG 2 tablets as needed Orally every 4 hrs for pain/ fever Active Asacol 800 mg 1 tablet Orally twice daily for 90 day(s) Active PROCEDURES No Information RESULTS No Results REASON FOR VISIT No Information MEDICAL (GENERAL) HISTORY Type Description Date Medical [...] No Information FUNCTIONAL STATUS No Information ASSESSMENTS No Information PLAN OF TREATMENT Medication Medication Name Sig Start Date Stop Date Omeprazole 20 MG 1 capsule 30 minutes before morning meal Orally Once a day for 90 day(s) October, Insurance Providers Payer Name Payer Address Payer Phone Insured Name Patient Relati onship to Insured Coverage Start Date Coverage End Date LUIS FELIPE QUIROS [facility] [address] [facility] [id number] SHRUTI VIVEROS
--- OUTSIDE RECORDS SUMMARY | 2020-08-09 13:11 | CCD ---
Author Author [facility] Organization [facility] Address Unknown Phone Unavailable Care Team Providers Care Director Of Front Office Name Role Phone Viki Carter Unavailable PROBLEMS Type Condition ICD9-CM Code [id number] Code Onset Dates Condition S tatus SNOMED Code Notes Problem Elevated PSA (prostate specific antigen) 790.93 Active 613658594 Problem Urinary frequency 788.41 Active 345310577 Problem History of prostate cancer Z85.46 Active 36518 2008 Problem Incontinence of feces, unspecified fecal incontinence type R15.9 Active 50740524 Problem 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 and other lower urinary tract symptoms [LUTS] 600.01 Active 919885718 Problem Prostate cancer 185 Active 409835125 Problem Pulmonary emphysema, unspecified emphysema type J4 3.9 Active 28293019 Problem Gastroesophageal reflux disease, esophagitis pre sence not specified K21.9 Active 555189947 ALLERGIES Allergen (clinical drug ingredient) Drug/Non Drug Allergy do cumented on EMR Reaction Allergy Type Onset Date Status Penicillin (For Allergies Use Only) swelling Drug Allerg y Active ENCOUNTERS from 1940 to 2020-07-12 Encounter Location Date Provider Diagnosis [facility] [address] [place] [address] Jun, Viki Carter IMMUNIZATIONS Vaccine Route Administration Date [...] Once a day for 90 days Active MiraLax 17 GM/SCOOP 1 capful Orally Daily for 30 Days 2019 Active Asacol HD 800 MG TAKE 1 TABLET TWICE A DAY for 90 Active Omeprazole 20 MG 1 capsule 30 minutes before morning meal Orally Once a day for 90 day(s) October, Active Tylenol 325 MG 2 tablets as needed Orally every 4 hrs for pain/ fever Active Asacol 800 mg 1 tablet Orally twice daily for 90 day(s) Active Colace 100 MG 1 capsule as needed Orally Once a day Active PROCEDURES No Information RESULTS No Results REASON FOR VISIT GI referral MEDICAL (GENERAL) HISTORY Type Description Date Medical [...] Medication Name Sig Start Date Stop Date Asacol HD 800 MG TAKE 1 TABLET TWICE A DAY for 90 Omeprazole 20 MG 1 capsule 30 minutes before morning meal Orally Once a day for 90 day(s) October, Insurance Providers Payer Name Payer Address Payer Phone Insured Name Patient Relati onship to Insured Coverage Start Date Coverage End Date LUIS FELIPE [place] [facility] [employer] [address] [facility] [id number] [phone] SHRUTI VIVEROS
--- OUTSIDE RECORDS SUMMARY | 2020-08-09 13:11 | CCD | Continuity of Care Document ---
Author Author Wyatt BARRY M.D. Organization Unknown Address [address] [place] [address] Phone [phone] Care Team Providers Care Medical Authorization Specialist Name Role Phone Facundo Ramos AUTM [phone] Viki Gonzalez DO AUTM [phone] Problems Active Problems Provider Date Fecal incontinence with fecal urgency Tashi Gilbert Onset: 07/29/2020 Social History Type Date Description Comments Sex Unknown ETOH Use Rarely consumes alcohol Tobacco Use Start: Unknown End: Unknown Patient is a former smoker QUIT 1991 Allergies, Adverse Reactions, Alerts Active Allergies Reaction Severity Comments Date Penicillin 09/07/2011 Medications Active Medications SIG Qnty Indications Ordering Provide r Date Sutab [id number] Tablets as directed 1box Nhan Barry M.D. 07/29/2020 Ranitidine HCL 150mg Tablets Viki Gonzalez,DO Spiriva Handihaler 18mcg Capsules Viki Gonzalez,DO Asacol HD 800mg Tablets DR 1 tab by mouth three times a day Unknown Stool Softener 100mg Capsules Unknown Immunizations Description No Information Available Vital Signs Date Vital Result Comment 07/29/2020 3:08pm Height 70 inches 5'10" Weight 209.00 lb BP Systolic 135 mmHg BP Diastolic 81 mmHg Heart Rate 79 /min BMI (Body Mass Index) 30.0 kg/m2 Weight 94.802 kg Body Temperature 97.7 F Results Description No Information Available Procedures Description No Information Available Medical Devices Description No Information Available Encounters Type Date Location Provider Dx Diagnosis Office Visit 07/29/2020 2:45p Main Office Nhan Barry M.D. R 15.9 Full incontinence of feces Assessments Date Code Description Provider 07/29/2020 R15.9 Idiopathic fecal incontinence Ge weston Barry M.D. Plan of Treatment Future Appointment(s):* 08/04/2020 7:30 am - Karl at Main Office * 08/09/2020 1:45 pm - Nhan Barry M.D. at Main Office 07/29/2020 - Nhan Barry M.D.* R15.9 Idiopathic fecal incontinence* Comments:* 80 yo wm who presents for a h/o occasional fecal incontinence. Last scope was over 10 yrs ago. No c/o abdominal pain, weight loss, change in bowel habits, or rectal bleeding. No family h/o colon cancer. No h/o chest pain, or sob. Plan:1. Colonoscopy to cecum.2. Informed consent. Functional Status Description No Information Available Mental Status Description No Information Available Referrals Description No Information Available
--- OUTSIDE RECORDS SUMMARY | 2020-08-09 13:11 | CCD | Continuity of Care Document ---
Author Author Wyatt BARRY M.D. Organization Unknown Address [address] [place] [address] Phone [phone] Care Team Providers Care Architectural Drafting Instructor Name Role Phone Facundo Ramos AUTM [phone] Viki Gonzalez DO AUTM [phone] Problems Active Problems Provider Date Fecal incontinence with fecal urgency Tashi Gilbert Onset: 07/29/2020 Social History Type Date Description Comments Sex Unknown ETOH Use Rarely consumes alcohol Tobacco Use Start: Unknown End: Unknown Patient is a former smoker QUIT 1991 Allergies, Adverse Reactions, Alerts Active Allergies Reaction Severity Comments Date Penicillin 09/07/2011 Medications Active Medications SIG Qnty Indications Ordering Provide r Date Sutab [id number] Tablets as directed 1box Nhan Barry M.D. [...] Medical Devices Description No Information Available Encounters Description No Information Available Assessments Date Code Description Provider 07/29/2020 R15.9 Idiopathic fecal incontinence Ge weston Barry M.D. Plan of Treatment Future Appointment(s):* 08/09/2020 1:45 pm - Nhan Barry M.D. [...]
--- OUTSIDE RECORDS SUMMARY | 2020-08-09 13:11 | CCD ---
Author Author [facility] Organization [facility] Address Unknown Phone Unavailable Care Team Providers Care Weeder Name Role Phone Viki Carter Unavailable PROBLEMS Type Condition ICD9-CM Code [id number] Code Onset Dates Condition S tatus SNOMED Code Notes Problem Elevated PSA (prostate specific antigen) 790.93 Active 867956715 Problem Urinary frequency 788.41 Active 542204612 Problem History of prostate cancer Z85.46 Active 63376 2008 Problem Incontinence of feces, unspecified fecal incontinence type R15.9 Active 40989577 Problem 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 and other lower urinary tract symptoms [LUTS] 600.01 Active 825154328 Problem Prostate cancer 185 Active 510876282 Problem Pulmonary emphysema, unspecified emphysema type J4 3.9 Active 69449965 Problem Gastroesophageal reflux disease, esophagitis pre sence not specified K21.9 Active 785508782 ALLERGIES Allergen (clinical drug ingredient) Drug/Non Drug Allergy do cumented on EMR Reaction Allergy Type Onset Date Status Penicillin (For Allergies Use Only) swelling Drug Allerg y Active ENCOUNTERS from 1940 to 2020-06-09 Encounter Location Date Provider Diagnosis [facility] [place] [address] [place] [address] May, Viki Carter IMMUNIZATIONS Vaccine Route Administration [...] Information RESULTS No Results REASON FOR VISIT refill MEDICAL (GENERAL) HISTORY Type Description Date Medical [...] Date Coverage End Date LUIS FELIPE QUIROS [facility] [address] [facility] [address] SHRUTI VIVEROS
--- OUTSIDE RECORDS SUMMARY | 2020-08-09 13:12 | CCD ---
Author Author [facility] Organization [facility] Address Unknown Phone Unavailable Care Team Providers Care Carpet Jack Name Role Phone Prince Barry MD Unavailable Unavailable Prince Barry MD Unavailable Unavailable Prince Barry MD Unavailable Unavailable Prince Barry MD Unavailable Unavailable Prince Barry MD Unavailable Unavailable Prince Barry MD Unavailable Unavailable Prince Barry MD Unavailable Unavailable Prince Barry MD Unavailable Unavailable Prince Barry MD Unavailable Unavailable Prince Barry MD Unavailable Unavailable Prince Barry MD Unavailable Unavailable Prince Barry MD Unavailable Unavailable Prince Barry MD Unavailable Unavailable Prince Barry MD Unavailable Unavailable Prince Barry MD Unavailable Unavailable Prince Barry MD Unavailable Unavailable Prince Barry MD Unavailable Unavailable Prince Barry MD Unavailable Unavailable Prince Barry MD Unavailable Unavailable Prince Barry MD Unavailable Unavailable Prince Barry MD Unavailable Unavailable Prince Barry MD Unavailable Unavailable Prince Barry MD Unavailable Unavailable Prince Barry MD Unavailable Unavailable Prince Barry MD Unavailable Unavailable Prince Barry MD Unavailable Unavailable Prince Barry MD Unavailable Unavailable Prince Barry MD Unavailable Unavailable Prince Barry MD Unavailable Unavailable Asha, S Nhan MD Unavailable Unavailable Asha, S Nhan MD Unavailable Unavailable Asha, S Nhan MD Unavailable Unavailable Asha, S Nhan MD Unavailable Unavailable Asha, S Nhan MD Unavailable Unavailable Asha, S Nhan MD Unavailable Unavailable Asha, S Nhan MD Unavailable Unavailable Asha, S Nhan MD Unavailable Unavailable Asha, S Nhan MD Unavailable Unavailable Asha, S Nhan MD Unavailable Unavailable Asha, S Nhan MD Unavailable Unavailable Asha, S Nhan MD Unavailable Unavailable Asha, S Nhan MD Unavailable Unavailable Asha, S Nhan MD Unavailable Unavailable Asha, S Nhan MD Unavailable Unavailable Asha, S Nhan MD Unavailable Unavailable Asha, S Nhan MD Unavailable Unavailable Asha, S Nhan MD Unavailable Unavailable Asha, S Nhan MD Unavailable Unavailable Asha, S Nhan MD Unavailable Unavailable Asha, S Nhan MD Unavailable Unavailable ASHAErickaEW DO Unavailable [phone] Ericka BRARY MALCOLM DO Unavailable [phone] Ericka BARRYEW DO Unavailable [phone] Ericka BARRY MALCOLM DO Unavailable [phone] Ericka BARRY MALCOLM DO Unavailable [phone] Ericka BARRYEW DO Unavailable [phone] Ericka BARRYEW DO Unavailable [phone] Ericka BARRYEW DO Unavailable [phone] Ericka BARRYEW DO Unavailable [phone] Ericka BARRYEW DO Unavailable [phone] Ericka BARRYEW DO Unavailable [phone] Ericka BARRY MALCOLM DO Unavailable [phone] Ericka BARRYEW DO Unavailable +[phone] Ericka BARRYEW DO Unavailable [phone] Ericka BARRYEW DO Unavailable [phone] Ericka BARRY MALCOLM DO Unavailable [phone] Ericka BARRY MALCOLM DO Unavailable [phone] Ericka BARRY DO Unavailable [phone] Ericka BARRY DO Unavailable [phone] Ericka BARRY DO Unavailable [phone] Ericka BARRY DO Unavailable [phone] Re-disclosure Warning The records that you are about to access may contain information from federally-assisted alcohol or drug abuse programs. If such information is present, then the following federally mandated warning applies: This information has been disclosed to you from records protected by federal confidentiality rules (42 CFR part 2). The federal rules prohibit you from making any further disclosure of this information unless further disclosure is expressly permitted by the written consent of the person to whom it pertains or as otherwise permitted by 42 CFR part 2. A general authorization for the release of medical or other information is NOT sufficient for this purpose. The Federal rules restrict any use of the information to criminally investigate or prosecute any alcohol or drug abuse patient.The records that you are about to access may contain highly sensitive health information, the redisclosure of which is protected by Article 27-F of the [facility] Public Health law. If you continue you may have access to information: Regarding HIV / AIDS; Provided by facilities licensed or operated by the [facility] Office of Mental Health; or Provided by the [facility] Office for People With Developmental Disabilities. If such information is present, then the following [facility] mandated warning applies: This information has been disclosed to you from confidential records which are protected by state law. State law prohibits you from making any further disclosure of this information without the specific written consent of the person to whom it pertains, or as otherwise permitted by law. Any unauthorized further disclosure in violation of state law may result in a fine or group home sentence or both. A general authorization for the release of medical or other information is NOT sufficient authorization for further disc losure. Allergies and Adverse Reactions Type Description Substance Reaction Status Data Source(s ) Drug allergy Penicillin (For Allergies Use Only) Drug allergy swellin g Active eCW1 ([facility]) Family History Family Member Name Family Member Gender Family Member Status Date o f Status Description Data Source(s) Unknown Unknown Problem MEDENT ([facility]) Unknown Male Problem MEDENT ([facility]) Unknown Male Problem MEDENT ([facility]) Encounters Encounter Providers Location Date Indications Data Source(s ) Outpatient Attender: Nhan Barry MD Main Office 07/29/2020 01:45:00 PM EST MEDENT ([facility]) Unknown [address] [facility], [facility] [address] 07/09/2020 12:00:00 AM EST eCW1 ([facility]) Unknown [address] [facility] [address] 06/09/2020 12:00:00 AM EST eCW1 ([facility]) Unknown [address] [facility] [address] 05/31/2020 12:00:00 AM EST eCW1 ([facility]) TeleMedicine Phone E/M by Phys 11-20 Min [address] [place] [address] 05/31/2020 12:00:00 AM EST eCW1 ([facility]) Unknown [address] [facility] [address] 05/07/2020 12:00:00 AM EST eCW1 ([facility]) Outpatient<td ID="encounterTypeDescripti onID0">Yag Laser Cap Follow up - Global 90 day post op</td><td>Malcolm Barry DO</td><td>Luis Bryan MD [facility]</td><td>04/14/2020</td><td>8:44AM</td><td>10:10AM</td><td><content ID="encounterDiagnosisID0-0">Dry Eye Syndrome</content></td> Attender: MALCOLM Gracia MD [facility] 04/14/2020 08:44:00 AM EDT - 04/14/2020 10:10:00 AM EDT Dry Eye Syndrome [place] (Luis Tate MD [facility]) Dry Eye Syndrome Outpatient<td ID="encounterTypeDescripti onID1">Yag Laser Capsulotomy - Global: 90 DAY POST OP</td><td>Malcolm Barry DO</td><td>Luis Bryan MD [facility]</td><td>03/16/2020</td><td>8:31AM</td><td>9:34AM</td><td><content ID="encounterDiagnosisID1-0">Posterior Capsule Opacification Eccentric Capsule Left Eye</content>, <content ID="encounterDiagnosisID1-1">Pseudophakia</content></td> Attender: MALCOLM Gracia MD [facility] 03/16/2020 08:31:00 AM EDT - 03/16/2020 09:34:00 AM EDT Posterior Capsule Opacification Eccentri c Capsule Left EyePseudophakia RONNIE (Luis Tate MD [facility]) Posterior Capsule Opacification Eccentri c Capsule Left Eye Pseudophakia Outpatient<td ID="encounterTypeDescripti onID2">TRIAGE NON URGENT</td><td>Malcolm Barry DO</td><td>Luis Bryan MD [facility]</td><td>03/03/2020</td><td>12:59PM</td><td>2:38PM</td><td><content ID="encounterDiagnosisID2-0">Pseudophakia</content>, <content ID="encounterDiagnosisID2-1">Posterior Capsule Opacification Eccentric Capsule Left Eye</content></td> Attender: MALCOLM Gracia MD [facility] 03/03/2020 12:59:00 PM EDT - 03/03/2020 02:38:00 PM EDT Posterior Capsule Opacification Eccentric Capsule Left EyePosterior Capsule Opacification Eccentric Capsule Left EyePseudophakiaPseudophakia RONNIE (Luis Tate MD [facility]) Posterior Capsule Opacification Eccentri c Capsule Left Eye Posterior Capsule Opacification Eccentri c Capsule Left Eye Pseudophakia Pseudophakia [place] [address] [facility] [address] 12/02/2019 12:00:00 AM EDT eCW1 ([facility]) [place] [address] [facility] [address] 11/24/2019 12:00:00 AM EDT eCW1 ([facility]) [facility] Shahram Alfaro [facility] [address] 11/07/2019 12:00:00 AM EDT eCW1 ([facility]) Outpatient<td ID="encounterTypeDescripti onID3">3 - 4 WK Post CAT SX</td><td>Malcolm Barry DO</td><td>Luis Bryan MD [facility]</td><td>07/30/2019</td><td>8:50AM</td><td>10:24AM</td><td><content ID="encounterDiagnosisID3-0">Pseudophakia</content></td> Attender: MALCOLM Gracia MD [facility] 07/30/2019 08:50:00 AM EST - 07/30/2019 10:24:00 AM EST PseudophakiaPseudophakiaPseudophakia RONNIE (Luis Tate MD [facility]) Pseudophakia Pseudophakia Pseudophakia [facility] Shahram Suarez[address] [facility] [address] 07/10/2019 12:00:00 AM EST eCW1 ([facility]) Outpatient<td ID="encounterTypeDescripti onID4">1 Week Post OP</td><td>Malcolm Barry DO</td><td>Luis Bryan MD [facility]</td><td>07/04/2019</td><td>7:46AM</td><td>8:45AM</td><td><content ID="encounterDiagnosisID4-0">Pseudophakia</content></td> Attender: MALCOLM Gracia MD [facility] 07/04/2019 07:46:00 AM EST - 07/04/2019 08:45:00 AM EST PseudophakiaPseudophakiaPseudophakiaPseudophakia REINA ARREOLA (Luis Tate MD [facility]) Pseudophakia Pseudophakia Pseudophakia Pseudophakia [facility] [place] [address] [facility] [address] 07/02/2019 12:00:00 AM EST eCW1 ([facility]) Outpatient<td ID="encounterTypeDescripti onID5">1 Day Post OP</td><td>Malcolm Barry DO</td><td>Luis Bryan MD [facility]</td><td>06/27/2019</td><td>7:34AM</td><td>8:00AM</td><td><content ID="encounterDiagnosisID5-0">Pseudophakia</content></td> Attender: MALCOLM Gracia MD [facility] 06/27/2019 07:34:00 AM EST - 06/27/2019 08:00:00 AM EST PseudophakiaPseudophakiaPseudophakiaPseudophakiaPseudo phakia RONNIE (Luis Tate MD [facility]) Pseudophakia Pseudophakia Pseudophakia Pseudophakia Pseudophakia Outpatient<td ID="encounterTypeDescripti onID6">Extracapsular cataract removal w/IOL implant</td><td>Malcolm Barry DO</td><td>[facility]</td><td>06/26/2019</td><td>7:07AM</td><td>7:08AM</td><td></td> Attender: MALCOLM BARRY DO [facility] 06/26/2019 07:07:00 AM EST - 06/26/2019 07:08:00 AM EST RONNIE (Luis reeves MD [facility]) Immunizations Vaccine Date Status Description Data Source(s) INFLUENZA VACCINE QUADRIVALENT 2019- (65 YR UP)/MF59 C.1/PF 03/02/2020 12:00:00 AM EDT completed [facility] Medications Medication Brand Name Start Date Product Form Dose Route Admi nistrative Instructions Pharmacy Instructions Status Indications Reaction Description Data Source(s) 1.479-0.188 gram 08/01/2020 12:00:00 AM EST tablet 24 USE DIRECTED USE DIRECTED SOLD: 08/01/2020 [facility] Sutab Sutab 07/29/2020 12:00:00 AM EST active MEDENT ([facility]) POLYETHYLENE GLYCOL 3350 142 MG/ML Oral Solution [Saray lax] MiraLax 17 GM/SCOOP MiraLax 17 GM/SCOOP 05/10/2020 12:00:00 AM EST active MiraLax 17 GM/SCOOP eCW1 ([facility]) POLYETHYLENE GLYCOL 3350 142 MG/ML Oral Solution [Saray lax] MiraLax 17 GM/SCOOP MiraLax 17 GM/SCOOP 05/10/2020 12:00:00 AM EST active MiraLax 17 GM/SCOOP eCW1 ([facility]) POLYETHYLENE GLYCOL 3350 142 MG/ML Oral Solution [Saray lax] MiraLax 17 GM/SCOOP MiraLax 17 GM/SCOOP 05/10/2020 12:00:00 AM EST active MiraLax 17 GM/SCOOP eCW1 ([facility]) POLYETHYLENE GLYCOL 3350 142 MG/ML Oral Solution [Saray lax] MiraLax 17 GM/SCOOP MiraLax 17 GM/SCOOP 05/10/2020 12:00:00 AM EST active MiraLax 17 GM/SCOOP eCW1 ([facility]) 0.5 % 03/17/2020 12:00:00 AM EDT drops,gel 5 INSTILL 1 DROP INTO THE LEFT EYE THREE TIMES A DAY FOR 5 DAYS THEN STOP INSTILL 1 DROP INTO THE LEFT EYE THREE TIMES A DAY FOR 5 DAYS THEN STOP SOLD: 03/19/2020 [facility] loteprednol etabonate 0.005 MG/MG Ophtha lmic Gel [Lotemax] Lotemax 0.5% Ophthalmic Gel Lotemax 0.5% Ophthalmic Gel 03/16/2020 12:00:00 AM EDT aborted loteprednol etabonate 0.005 MG/M G Ophthalmic Gel [Lotemax] RONNIE (Luis Tate MD [facility]) Omeprazole 20 MG Delayed Release Oral Capsule Omeprazole 20 MG 11/07/2019 12:00:00 AM EDT active Omeprazo le 20 MG eCW1 ([facility]) Omeprazole 20 MG Delayed Release Oral Capsule Omeprazole 20 MG 11/07/2019 12:00:00 AM EDT active Omeprazo le 20 MG eCW1 ([facility]) Omeprazole 20 MG Delayed Release Oral Capsule Omeprazole 20 MG 11/07/2019 12:00:00 AM EDT active Omeprazo le 20 MG eCW1 ([facility]) Omeprazole 20 MG Delayed Release Oral Capsule Omeprazole 20 MG 11/07/2019 12:00:00 AM EDT active 1 capsul e 30 minutes before morning meal eCW1 ([facility]) Omeprazole 20 MG Delayed Release Oral Capsule Omeprazole 20 MG 11/07/2019 12:00:00 AM EDT active Omeprazo le 20 MG eCW1 ([facility]) Omeprazole 20 MG Delayed Release Oral Capsule Omeprazole 20 MG 11/07/2019 12:00:00 AM EDT active Omeprazo le 20 MG eCW1 ([facility]) Omeprazole 20 MG Delayed Release Oral Capsule Omeprazole 20 MG 11/07/2019 12:00:00 AM EDT active Omeprazo le 20 MG eCW1 ([facility]) Omeprazole 20 MG Delayed Release Oral Capsule Omeprazole 20 MG 11/07/2019 12:00:00 AM EDT active Omeprazo le 20 MG eCW1 ([facility]) 0.075 % 05/21/2019 12:00:00 AM EST drops 5 INSTILL 1 DROP IN LEFT EYE TWO TIMES A DAY START 3 DAYS PRIOR TO SURGERY INSTILL 1 DROP IN LEFT EYE TWO TIMES A DAY START 3 DAYS PRIOR TO SURGERY SOLD: 06/17/2019 [facility] 1 % 05/21/2019 12:00:00 AM EST drops,suspension 2 DAY OF SURGERY REMOVE PATCH AND PLACE 1 DROP IN LEFT EYE TWO TIMES A DAY DAY OF SURGERY REMOVE PATCH AND PLACE 1 DROP IN LEFT EYE TWO TIMES A DAY SOLD: 06/17/2019 [facility] besifloxacin 6 MG/ML Ophthalmic Suspensi on [Besivance] Besivance 0.6% Ophthalmic Suspension Besivance 0.6% Ophthalmic Suspension 05/20/2019 12:00:00 AM EST aborted besifloxacin 6 MG/ML Ophthalmic Suspension [Besivance] RONNIE (Luis Tate MD [facility]) BromSite 0.075% Ophthalmic Solution BromSite 0.075% Ophthalm ic Solution 05/20/2019 12:00:00 AM EST aborted bromfenac 0.75 MG/ML Ophthalmic Solution [Bromsite] RONNIE (Luis Tate MD [facility]) 0.6 % 05/20/2019 12:00:00 AM EST drops,suspension 5 INSTILL 1 DROP IN LEFT EYE THREE TIMES A DAY START 3 DAYS PRIOR TO SURGERY INSTILL 1 DROP IN LEFT EYE THREE TIMES A DAY START 3 DAYS PRIOR TO SURGERY SOLD: 06/17/2019 [facility] Inveltys 1% Ophthalmic Suspension Inveltys 1% Ophthalmic Danielle pension 05/20/2019 12:00:00 AM EST aborted loteprednol etabonate 10 MG/ML Ophthalmic Suspension [Inveltys] RONNIE (Luis Tate MD [facility]) Cyclosporine 0.5 MG/ML Ophthalmic Suspen blas [Restasis] Restasis 0.05% Ophthalmic Emulsion Restasis 0.05% Ophthalmic Emulsion 05/13/2019 12:00:00 AM EST aborted cyclospo rine 0.5 MG/ML Ophthalmic Suspension [Restasis] RONNIE (Luis Tate MD [facility]) Insurance Providers Payer name Policy type / Coverage type Policy ID Covered republican ID Covered republican's relationship to jiang Policy Jiang Plan Information [employer] FEDERAL EMPLOYEE PROGRAM [id number] [facility] [id number] [employer] [id number] [employer] [id number] BCBS of [facility] Other 0 Self 0 BCBS of [facility] Other 0 Self 0 BCBS of [facility] Other 0 Self 0 MEDICARE [id number] SP [id number] A [employer] of [facility] Other 0 Self 0 BC[employer] of [facility] Other 0 Self 0 [employer] FEDERAL EMPLOYEE PROGRAM [id number] [employer] [facility] [id number] [employer] of [facility] Other 0 Self 0 [employer] of [facility] Other 0 Self 0 ANSI-Commercial [id number] ANSI-Commercial [id number] ANSI-Commercial [id number] ANSI-Commercial [id number] ANSI-Commercial [id number] ANSI-Commercial [id number] [place] Medicare Primary [id number] Self [id number] [employer] [facility] Health Maintenance Organization (HMO) [id number] Family Dependent [id number] BS Fed Plan Commercial [id number] Family Dependent [id number] BS [facility] Part B [id number] Family Dependent [id number] [facility] Federal Plan Commercial [id number] Family Dependent [id number] ANSI-Commercial [id number] Fed Plan Commercial [id number] Family Dependent [id number] Medicare Up[place]/[facility] Medicare Primary [id number] Self [id number] ANSI-Commercial [id number] [facility] FEDERAL EMPLOYEE PROGRAM [id number] [place]2 [id number] ANSI-Commercial [id number] ANSI-Commercial [id number] ANSI-Commercial [id number] ANSI-Commercial [id number] ANSI-Commercial [id number] [facility] [place] FEDERAL B [id number] P [id number] [employer] [facility] FEDERAL [id number] WI2 [id number] [facility] Federal Plan Commercial [id number] Family Dependent [id number] [facility] Federal Plan Commercial [id number] Family Dependent [id number] [facility] Federal Plan Commercial Family Dependent [facility] Employee Program J [id number] SPOUSE [id number] EXCELLUS C [id number] Spouse [id number] [facility] [id number] WI2 [id number] Problems, Conditions, and Diagnoses Code Display Name Description Problem Type Effective Dates Data Source(s) 138694086746021 Fecal incontinence with fecal urgency Fe lesley incontinence with fecal urgency Problem 07/29/2020 12:00:00 AM EST MEDENT ([facility]) R15.9 [id number] Incontinence of feces, unspecifi ed fecal incontinence type Problem 05/10/2020 12:00:00 AM EST eCW1 ([facility]) [id number] Posterior Capsule Opacification Eccentri c Capsule Left Eye Posterior Capsule Opacification Eccentric Capsule Left Eye Problem 03/03 12:00:00 AM EDT - 04/14/2020 12:00:00 AM EDT RONNIE (Luis Tate MD [facility]) [id number] Posterior Capsule Opacification Eccentri c Capsule Left Eye Posterior Capsule Opacification Eccentric Capsule Left Eye Problem 03/03 12:00:00 AM EDT RONNIE (Luis Tate MD [facility]) Z85.46 [id number] History of prostate cancer Problem 0 12:00:00 AM EST eCW1 ([facility]) Z85.46 [id number] History of prostate cancer Problem 0 12:00:00 AM EST eCW1 ([facility]) Surgeries/Procedures Procedure Description Date Indications Data Source(s) Discission of membranous cataract, secondary (procedur e) 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 Barry 04/14/2020 12:00:00 AM EDT RONNIE (Ritchie Tate MD [facility]) Yag Laser Capulotomy (Left side) Yag Laser Capulotomy (Left side) 03/16/2020 12:00:00 AM EDT RONNIE (Luis Tate MD [facility]) Intermediate Eye Exam Established Patient Intermediate Eye Exam Established Patient 03/03/2020 12:00:00 AM EDT RONNIE (Ritchie Tate MD [facility]) Intermediate Eye Exam Established Patient Intermediate Eye Exam Established Patient 03/03/2020 12:00:00 AM EDT RONNIE (Ritchie Tate MD [facility]) No recent change in medical history No recent change in medi lesley history 07/04/2019 12:00:00 AM EST RONNIE (Luis reeves MD [facility]) Extracapsular extraction of lens (procedure) History o f extracapsular cataract extraction PCIOL OS by Dr. Barry 05/29/19 ~PCIOL OD by Dr. Barry 06/26/2019 06/27/2019 12:00:00 AM EST RONNIE (Ritchie Tate MD [facility]) Recent change in medical history Cataract Surgery OD by Dr. Barry 06/26/2019 Recent change in medical history Cataract Surgery OD by Dr. Barry 06/26/2019 06/27/2019 12:00:00 AM EST RONNIE (Luis reeves MD [facility]) Extracapsular cataract removal with intr aocular lens implant (Right Side, Related procedure/service by same physician during Post Op) Extracapsular cataract removal with intraocular lens implant (Right Side, Related procedure/service by same physician during Post Op) 06/26/2019 12:00:00 AM EST RONNIE (Luis Tate MD [facility]) Results ID Date Data Source [id number] 08/04/2020 09:50:00 AM EST [facility] Name Value Range Interpretation Code Description Data Tiffany rce(s) Supporting Document(s) SARS coronavirus 2 RNA Not Detected [facility] [place] This lab was ordered by [facility] and reported by [facility]. Procedure Social History Code Duration Value Status Description Data Source(s ) Smoking 05/10/2020 12:00:00 AM EST Former Smoker completed Former Smoker eCW1 ([facility]) Smoking 05/10/2020 12:00:00 AM EST Former Smoker completed Former Smoker eCW1 ([facility]) Smoking 05/10/2020 12:00:00 AM EST Former Smoker completed Former Smoker eCW1 ([facility]) Smoking 05/10/2020 12:00:00 AM EST Former Smoker completed Former Smoker eCW1 ([facility]) Smoking 04/14/2020 10:13:53 AM EDT Ex-smoker (finding) complet ed Ex-smoker (finding) RONNIE (Luis Tate MD [facility]) Smoking 03/03/2020 02:40:19 PM EDT Ex-smoker (finding) complet ed Ex-smoker (finding) RONNIE (Luis Tate MD [facility]) Smoking 07/30/2019 10:31:15 AM EST Ex-smoker (finding) complet ed Ex-smoker (finding) RONNIE (Luis Tate MD [facility]) Smoking 07/04/2019 08:48:15 AM EST Ex-smoker (finding) complet ed Ex-smoker (finding) RONNIE (Luis Tate MD [facility]) Smoking 07/02/2019 12:00:00 AM EST Former Smoker completed Former Smoker eCW1 ([facility]) Smoking 07/02/2019 12:00:00 AM EST Former Smoker completed Former Smoker eCW1 ([facility]) Smoking 07/02/2019 12:00:00 AM EST Former Smoker completed Former Smoker eCW1 ([facility]) Smoking 06/27/2019 10:29:29 AM EST Ex-smoker (finding) complet ed Ex-smoker (finding) ORNNIE (Luis Tate MD [facility]) Vital Signs ID Date Data Source UNK Name Value Range Interpretation Code Description Data Source(s) Body temperature 97.7 [degF] 97.7 [degF] MEDENT ([facility]) Body weight 94.802 kg 94.802 kg [facility] ([facility]) Body mass index (BMI) [Ratio] 30.0 kg/m2 30.0 k g/m2 MEDENT ([facility]) Heart rate 79 /min 79 /min [facility] ([facility]) Diastolic blood pressure 81 mm[Hg] 81 mm[Hg] MEDENT ([facility]) Systolic blood pressure 135 mm[Hg] 135 mm[Hg] M EDENT ([facility]) Body weight 209.00 [lb_av] 209.00 [lb_av] MEDEN T ([facility]) Body height 70 [in_i] 70 [in_i] [facility] ([facility]) 5'10" Diastolic blood pressure 70 mm[Hg] 70 mm[Hg] eCW1 ([facility]) Systolic blood pressure 136 mm[Hg] 136 mm[Hg] e CW1 ([facility]) Body temperature 98.0 [degF] 98.0 [degF] eCW1 ( [facility]) Respiratory rate 18 /min 18 /min eCW1 ([facility]) Heart rate 83 /min 83 /min eCW1 ([facility]) Body mass index (BMI) [Ratio] 40.42 kg/m2 40.42 kg/m2 eCW1 ([facility]) Body height [in_us] eCW1 ([facility]) Body weight Measured 207 [lb_av] 207 [lb_av] eC W1 ([facility]) Patient Treatment Plan of Care Planned Activity Planned Date Details Description Data Source (s) loteprednol etabonate 0.005 MG/MG Ophthalmic Gel [Lote max] 03/16/2020 12:00:00 AM EDT RONNIE (Luis Tate MD [facility]) Omeprazole 20 MG Delayed Release Oral Capsule 11/07/2019 12:00:00 A M EDT eCW1 ([facility]) Omeprazole 20 MG Delayed Release Oral Capsule 11/07/2019 12:00:00 A M EDT eCW1 ([facility]) Omeprazole 20 MG Delayed Release Oral Capsule 11/07/2019 12:00:00 A M EDT eCW1 ([facility]) Omeprazole 20 MG Delayed Release Oral Capsule 11/07/2019 12:00:00 A M EDT eCW1 ([facility]) Omeprazole 20 MG Delayed Release Oral Capsule 11/07/2019 12:00:00 A M EDT eCW1 ([facility]) Omeprazole 20 MG Delayed Release Oral Capsule 11/07/2019 12:00:00 A M EDT eCW1 ([facility]) Omeprazole 20 MG Delayed Release Oral Capsule 11/07/2019 12:00:00 A M EDT eCW1 ([facility]) Omeprazole 20 MG Delayed Release Oral Capsule 11/07/2019 12:00:00 A M EDT eCW1 ([facility]) Inveltys 1% Ophthalmic Suspension 05/20/2019 12:00:00 AM EST RONNIE (Luis Tate MD [facility]) BromSite 0.075% Ophthalmic Solution 05/20/2019 12:00:00 AM EST RONNIE (Luis Tate MD [facility]) besifloxacin 6 MG/ML Ophthalmic Suspension [Besivance] 05/20/2019 12:00:00 AM EST RONNIE (Luis Tate MD [facility]) Cyclosporine 0.5 MG/ML Ophthalmic Suspension [Restasis ] 05/13/2019 12:00:00 AM EST RONNIE (Luis Tate MD [facility])
[2020-08-09] MEDS ORDERED: propofoL 200 MG/20 ML VIAL As Ordered ONE (13:59)
[2020-08-09] MEDS ORDERED: LIDOCAINE 2% 100MG/5ML SDV (FOR ANES.) As Ordered ONE (13:59)
--- NOTE | 2020-08-09 14:38 | ROOR ---
Patient Name: Wyatt Stevenson Procedure Date: 08/09/2020 2:21 PM Date of : 1940 Age: 80 Room: [facility] Gender: Male Note Status: Finalized Procedure: Total Colonoscopy to Cecum Indications: Rectal bleeding, Fecal incontinence, Rectal pain Providers: Nhan Barry MD Referring MD: Viki VOSS DO Requesting Provider: Medicines: Monitored Anesthesia Care Complications: No immediate complications. Procedure: Pre-Anesthesia Assessment: - The heart rate, respiratory rate, oxygen saturations, blood pressure, adequacy of pulmonary ventilation, and response to care were monitored throughout the procedure. The Colonoscope was introduced through the anus and advanced to the cecum, identified by appendiceal orifice and ileocecal valve. The colonoscopy was performed without difficulty. The patient tolerated the procedure well. The quality of the bowel preparation was good. Findings: The perianal and digital rectal examinations were normal. Non-bleeding internal hemorrhoids were found during retroflexion. The hemorrhoids were small and Grade I (internal hemorrhoids that do not prolapse). Multiple small and large-mouthed diverticula were found in the recto-sigmoid colon, sigmoid colon and descending colon. The exam was otherwise without abnormality on direct and retroflexion views. Impression: - Non-bleeding internal hemorrhoids. - Diverticulosis in the recto-sigmoid colon, in the sigmoid colon and in the descending colon. - The examination was otherwise normal on direct and retroflexion views. - No specimens collected. - The exam was otherwise normal to the cecum. Recommendation: - Patient has a contact number available for emergencies. The signs and symptoms of potential delayed complications were discussed with the patient. Return to normal activities tomorrow. Written discharge instructions were provided to the patient. - High fiber diet. - Discharge patient to home. - Continue present medications. - Repeat colonoscopy is not recommended due to current age (66 years or older) for screening purposes. - Return to referring physician. - The findings and recommendations were discussed with the patient. Procedure Code(s): --- Professional --- 76896, Colonoscopy, flexible; diagnostic, including collection of specimen(s) by brushing or washing, when performed (separate procedure) Diagnosis Code(s): --- Professional --- K64.0, First degree hemorrhoids K62.5, Hemorrhage of anus and rectum R15.9, Full incontinence of feces K62.89, Other specified diseases of anus and rectum K57.30, Diverticulosis of large intestine without perforation or abscess without bleeding CPT copyright 2019 [employer]. All rights reserved. The codes documented in this report are preliminary and upon it account manager review may be revised to meet current compliance requirements. Nhan Barry MD Nhan Barry MD 08/09/2020 2:38:16 PM Electronically signed by Nhan Barry MD Number of Addenda: 0 Note Initiated On: 08/09/2020 2:21 PM Estimated Blood Loss: Estimated blood loss: none.
[2020-08-09 15:09] VITALS: BP 149/93
== END 2020-08-09 15:11 | disposition home or self-care (01) ==
LOC: M OPP 12:43
PROVIDERS: ATTEND Internal Medicine Gastroenterology
DX: K62.5 Hemorrhage of anus and rectum (principal); R15.9 Full incontinence of feces; K62.89 Other specified diseases of anus and rectum; K64.0 First degree hemorrhoids; K57.30 Diverticulosis of large intestine without perforation or abscess without bleeding; R12 Heartburn; M19.90 Unspecified osteoarthritis, unspecified site; G43.909 Migraine, unspecified, not intractable, without status migrainosus; J44.9 Chronic obstructive pulmonary disease, unspecified; Z85.46 Personal history of malignant neoplasm of prostate; Z87.891 Personal history of nicotine dependence; Z88.0 Allergy status to penicillin; Z79.899 Other long term (current) drug therapy

== ENCOUNTER → 2020-09-23 | Outpatient (CLI) | payer BC ==
[~2020-09-23] MED LIST changes: -NS 1,000 ML IV ONE
--- NOTE | 2020-09-23 09:26 | REP ---
INDICATION: DDD LUMBAR W/PAIN. COMPARISON: None. TECHNIQUE: Sagittal T1, T2, and stir images of the lumbar spine obtained. Axial T1 and T2 weighted images obtained. FINDINGS: There is dorg-qs-lselclra multilevel degenerative disc disease with loss of disc height and disc desiccation seen diffusely throughout the lumbar spine. Vertebral heights are overall preserved. No maged malalignments. Conus ends normally at L1 level. On the sagittal T2 weighted images, no limiting canal stenosis. There appears to be a transitional anatomy, with a complete for sacral vertebra vertebrae. Comparison with plain film studies to establish a levels is recommended prior to any intervention. On the review of axial images, At L1-2 global disc bulge with mild canal narrowing and jrqu-rd-kmejyvvq for bilateral foraminal narrowing At L2-3 global disc bulge with mild canal narrowing and moderate bilateral foraminal narrowing. At L3-4 global disc bulge with mild canal narrowing and moderate bilateral foraminal narrowing. At L4-5 global disc bulge with mild canal narrowing and fkdpmpfm-ec-yrkvzj bilateral foraminal narrowing that appears greater on the right. At L5-S1 mild canal narrowing and gdvg-xz-vevgkkha bilateral foraminal narrowing. IMPRESSION: 1. Urxe-br-zsmgvxam multilevel degenerative disc disease. 2. No limiting canal stenosis. 3. Multilevel global disc bulges with varying degrees of foraminal narrowing. At L4-5 is erhhwtui-nk-furacs foraminal narrowing bilaterally but greater on the right. <Electronically signed by Wyatt Lopez > 09/23/20 0922
== END ==
LOC: M PLARAD 08:15
PROVIDERS: ATTEND Family Medicine
DX: M51.36 Other intervertebral disc degeneration, lumbar region (principal)

== ENCOUNTER → 2020-10-22 | Outpatient (REF) | payer BC | LOC: M LABSMT 09:21 → M SFHCADAM 09:52 | PROVIDERS: ATTEND Nurse Practitioner Women's Health | DX: Z85.46 Personal history of malignant neoplasm of prostate (principal) ==

== ENCOUNTER → 2021-05-04 | Outpatient (REF) | payer BC ==
[2021-05-04 12:39] LABS: BASO % 0.5 % (0.0-1.0); EOS # 0.1 10^3/uL (0.0-0.5); HEMATOCRIT 38.2 % (42.0-52.0); HEMOGLOBIN 12.2 g/dl (13.5-17.5); LYMPH # 1.2 10^3/uL (1.5-5.0); LYMPH % 14.4 % (24.0-44.0); MEAN CORPUSCULAR HEMOGLOBIN 29.5 pg (27.0-33.0); MEAN CORPUSCULAR HGB CONC 31.9 g/dl (32.0-36.5); MEAN CORPUSCULAR VOLUME 92.5 fl (80.0-96.0); MONO # 0.8 10^3/uL (0.0-0.8); NEUTROPHILS # 6.3 10^3/uL (1.5-8.5); NEUTROPHILS % 74.7 % (36.0-66.0); PLATELET COUNT, AUTOMATED 197 10^3/uL (150-450); RED BLOOD COUNT 4.13 10^6/uL (4.30-6.10); WHITE BLOOD COUNT 8.4 10^3/uL (4.0-10.0)
[2021-05-04 13:24] LABS: ALBUMIN 3.3 GM/DL (3.2-5.2); ALT/SGPT 21 U/L (12-78); BILIRUBIN,TOTAL 0.5 MG/DL (0.2-1.0); BLOOD UREA NITROGEN 16 MG/DL (7-18); CALCIUM LEVEL 9.2 MG/DL (8.8-10.2); CARBON DIOXIDE LEVEL 28 MEQ/L (21-32); CHLORIDE LEVEL 106 MEQ/L (98-107); CREATININE FOR GFR 1.01 MG/DL (0.70-1.30); GLOMERULAR FILTRATION RATE > 60.0 (>35); GLUCOSE, FASTING 91 MG/DL (70-100); POTASSIUM SERUM 4.9 MEQ/L (3.5-5.1); SODIUM LEVEL 141 MEQ/L (136-145)
== END ==
LOC: M SFHCADAM 10:43
PROVIDERS: ATTEND Family Medicine
DX: R68.89 Other general symptoms and signs (principal); R60.9 Edema, unspecified

== ENCOUNTER → 2021-05-04 | Outpatient (CLI) | payer BC ==
--- NOTE | 2021-05-04 12:21 | REP ---
INDICATION: DECREASED EXERCISE TOLERANCE COMPARISON: 01/06/2019 TECHNIQUE: PA and lateral. FINDINGS: Mediastinum and cardiac silhouette are within normal limits and stable. Lung ling demonstrate diffuse chronic stable fibroatelectatic and pleuroparenchymal changes. No focal consolidation. No effusion. No pneumothorax. Skeletal structures intact. IMPRESSION: Chronic stable changes. No obvious acute consolidation or effusion. <Electronically signed by Jayson Benedict > 05/04/21 1523
== END ==
LOC: M ADAMS 10:46
PROVIDERS: ATTEND Family Medicine
DX: R68.89 Other general symptoms and signs (principal)

== ENCOUNTER → 2021-05-16 | Outpatient (REF) | payer BC | LOC: M SFHCADAM 13:52 | PROVIDERS: ATTEND Physician Assistant | DX: R05.8 Other specified cough (principal) ==

== ENCOUNTER → 2021-05-27 | Outpatient (CLI) | payer BC | LOC: M CARPUL 08:13 | PROVIDERS: ATTEND Family Medicine | DX: R60.9 Edema, unspecified (principal); I48.91 Unspecified atrial fibrillation ==

== ENCOUNTER → 2021-06-02 | Outpatient (CLI) | payer BC ==
--- NOTE | 2021-06-02 09:20 | REP ---
INDICATION: CHF COMPARISON: 05/04/2021 TECHNIQUE: PA and lateral. FINDINGS: The mediastinum and cardiac silhouette are normal. The lung ling demonstrate chronic changes without acute consolidation, effusion, or pneumothorax. The skeletal structures are intact and normal. IMPRESSION: Chronic stable changes. No acute cardiopulmonary process. <Electronically signed by Jayson Benedict > 06/02/21 0916
[2021-06-02 12:52] LABS: BASO % 0.2 % (0.0-1.0); EOS % 0.4 % (0.0-3.0); HEMATOCRIT 38.8 % (42.0-52.0); HEMOGLOBIN 12.3 g/dl (13.5-17.5); MEAN CORPUSCULAR HGB CONC 31.7 g/dl (32.0-36.5); MEAN CORPUSCULAR VOLUME 91.5 fl (80.0-96.0); MONO # 1.3 10^3/uL (0.0-0.8); NEUTROPHILS # 8.4 10^3/uL (1.5-8.5); NEUTROPHILS % 77.8 % (36.0-66.0); PLATELET COUNT, AUTOMATED 212 10^3/uL (150-450); RED BLOOD COUNT 4.24 10^6/uL (4.30-6.10); WHITE BLOOD COUNT 10.9 10^3/uL (4.0-10.0)
[2021-06-02 13:24] LABS: ERYTHROCYTE SEDIMENTATION RATE 8 mm/hr (0-20)
[2021-06-02 13:28] LABS: ALBUMIN 3.1 GM/DL (3.2-5.2); ALT/SGPT 19 U/L (12-78); BILIRUBIN,TOTAL 0.8 MG/DL (0.2-1.0); BLOOD UREA NITROGEN 24 MG/DL (7-18); CALCIUM LEVEL 9.4 MG/DL (8.8-10.2); CARBON DIOXIDE LEVEL 32 MEQ/L (21-32); CHLORIDE LEVEL 103 MEQ/L (98-107); CREATININE FOR GFR 1.08 MG/DL (0.70-1.30); GLOMERULAR FILTRATION RATE > 60.0 (>35); GLUCOSE, FASTING 103 MG/DL (70-100); NT-PRO BNP 2205 PG/ML (<450); POTASSIUM SERUM 4.3 MEQ/L (3.5-5.1); SODIUM LEVEL 141 MEQ/L (136-145); TOTAL PROTEIN 6.4 GM/DL (6.4-8.2)
== END ==
LOC: M ADAMS 08:39
PROVIDERS: ATTEND Internal Medicine Cardiovascular Disease
DX: I50.32 Chronic diastolic (congestive) heart failure (principal); I48.91 Unspecified atrial fibrillation; I34.0 Nonrheumatic mitral (valve) insufficiency

== ENCOUNTER → 2021-06-03 | Outpatient (REF) | payer BC | LOC: M LAB REF 13:18 | PROVIDERS: ATTEND Internal Medicine Cardiovascular Disease | DX: I48.91 Unspecified atrial fibrillation (principal) ==

== ENCOUNTER → 2021-06-07 | Outpatient (REF) | payer BC ==
[2021-06-07 13:42] LABS: ALBUMIN 3.1 GM/DL (3.2-5.2); BLOOD UREA NITROGEN 26 MG/DL (7-18); CALCIUM LEVEL 9.1 MG/DL (8.8-10.2); CARBON DIOXIDE LEVEL 31 MEQ/L (21-32); CHLORIDE LEVEL 103 MEQ/L (98-107); CREATININE FOR GFR 1.18 MG/DL (0.70-1.30); GLOMERULAR FILTRATION RATE > 60.0 (>35); GLUCOSE, FASTING 133 MG/DL (70-100); MAGNESIUM LEVEL 2.2 MG/DL (1.8-2.4); NT-PRO BNP 2234 PG/ML (<450); PHOSPHORUS LEVEL 3.4 MG/DL (2.5-4.9); POTASSIUM SERUM 4.4 MEQ/L (3.5-5.1); SODIUM LEVEL 141 MEQ/L (136-145)
== END ==
LOC: M LABDRWAD 12:26
PROVIDERS: ATTEND Internal Medicine Cardiovascular Disease
DX: I50.32 Chronic diastolic (congestive) heart failure (principal)

== ENCOUNTER → 2021-07-18 | Outpatient (REF) | payer BC ==
[2021-07-18 13:01] LABS: BASO % 0.3 % (0.0-1.0); EOS # 0.1 10^3/uL (0.0-0.5); EOS % 0.9 % (0.0-3.0); HEMATOCRIT 41.5 % (42.0-52.0); HEMOGLOBIN 13.3 g/dl (13.5-17.5); LYMPH # 1.2 10^3/uL (1.5-5.0); LYMPH % 12.5 % (24.0-44.0); MEAN CORPUSCULAR HEMOGLOBIN 29.6 pg (27.0-33.0); MEAN CORPUSCULAR VOLUME 92.2 fl (80.0-96.0); MONO # 0.9 10^3/uL (0.0-0.8); MONO % 9.6 % (2.0-8.0); NEUTROPHILS # 7.1 10^3/uL (1.5-8.5); NEUTROPHILS % 76.4 % (36.0-66.0); PLATELET COUNT, AUTOMATED 223 10^3/uL (150-450); WHITE BLOOD COUNT 9.3 10^3/uL (4.0-10.0)
== END ==
LOC: M LABDRWAD 12:35
PROVIDERS: ATTEND Internal Medicine Cardiovascular Disease
DX: I48.91 Unspecified atrial fibrillation (principal); I34.0 Nonrheumatic mitral (valve) insufficiency; I35.1 Nonrheumatic aortic (valve) insufficiency

== ENCOUNTER → 2021-07-22 | Outpatient (REF) | payer BC ==
[2021-07-22 13:13] LABS: BASO % 0.1 % (0.0-1.0); EOS # 0.1 10^3/uL (0.0-0.5); EOS % 1.3 % (0.0-3.0); HEMATOCRIT 39.1 % (42.0-52.0); HEMOGLOBIN 12.5 g/dl (13.5-17.5); LYMPH # 1.1 10^3/uL (1.5-5.0); LYMPH % 12.8 % (24.0-44.0); MEAN CORPUSCULAR HEMOGLOBIN 29.6 pg (27.0-33.0); MEAN CORPUSCULAR VOLUME 92.7 fl (80.0-96.0); MONO # 0.7 10^3/uL (0.0-0.8); NEUTROPHILS # 6.3 10^3/uL (1.5-8.5); NEUTROPHILS % 76.4 % (36.0-66.0); PLATELET COUNT, AUTOMATED 181 10^3/uL (150-450); RED BLOOD COUNT 4.22 10^6/uL (4.30-6.10); WHITE BLOOD COUNT 8.3 10^3/uL (4.0-10.0)
[2021-07-22 13:44] LABS: ALBUMIN 3.4 GM/DL (3.2-5.2); CALCIUM LEVEL 8.8 MG/DL (8.8-10.2); CREATININE FOR GFR 1.3 MG/DL (0.70-1.30); GLOMERULAR FILTRATION RATE 56.1 (>35); PHOSPHORUS LEVEL 3.1 MG/DL (2.5-4.9); POTASSIUM SERUM 3.8 MEQ/L (3.5-5.1)
== END ==
LOC: M LABDRWAD 12:32
PROVIDERS: ATTEND Internal Medicine Cardiovascular Disease
DX: I48.91 Unspecified atrial fibrillation (principal); I34.0 Nonrheumatic mitral (valve) insufficiency; I35.1 Nonrheumatic aortic (valve) insufficiency; I50.32 Chronic diastolic (congestive) heart failure

== ENCOUNTER → 2021-08-30 | Outpatient (CLI) | payer BC ==
[~2021-08-30] MED LIST changes: +ACET-683 PO; +ELIQ5TAB PO; +FLUTISP NARES; +ISOVUE-370 76% 100ML VIAL As Ordered ONE; +LOPR1TAB6 PO; +METO25TA4 PO; +MULT-4 PO; +OMEP-173 PO; +OXYB15TA14 PO; +SPIR-10 PO; +TORS10TA3 PO
== END ==
LOC: M RAD 13:59
PROVIDERS: ATTEND Family Medicine
DX: I25.10 Atherosclerotic heart disease of native coronary artery without angina pectoris (principal); R06.00 Dyspnea, unspecified
CPT/HCPCS: 71260; Q9967

== ENCOUNTER 2021-09-01 15:46 | Inpatient (IN) | payer MEDICARE, BC ==
[~2021-09-01] VITALS: Ht 177.8 cm; Wt 79.1 kg
[~2021-09-01 15:46] MED LIST changes: -ACET-683 PO; -ELIQ5TAB PO; -FLUTISP NARES; -ISOVUE-370 76% 100ML VIAL As Ordered ONE; -LOPR1TAB6 PO; -METO25TA4 PO; -MULT-4 PO; -OMEP-173 PO; -OXYB15TA14 PO; -SPIR-10 PO; -TORS10TA3 PO
[2021-09-01] MEDS ORDERED: NS 1,000 ML IV ONE (16:10)
[2021-09-01 16:30] LABS: BASO % 0.2 % (0.0-1.0); EOS # 0.1 10^3/uL (0.0-0.5); EOS % 0.6 % (0.0-3.0); HEMATOCRIT 39.8 % (42.0-52.0); LYMPH # 1.2 10^3/uL (1.5-5.0); LYMPH % 9.4 % (24.0-44.0); MEAN CORPUSCULAR HEMOGLOBIN 30.3 pg (27.0-33.0); MEAN CORPUSCULAR HGB CONC 32.7 g/dl (32.0-36.5); MEAN CORPUSCULAR VOLUME 92.8 fl (80.0-96.0); MONO # 1.1 10^3/uL (0.0-0.8); MONO % 8.6 % (2.0-8.0); NEUTROPHILS # 10.3 10^3/uL (1.5-8.5); NEUTROPHILS % 80.8 % (36.0-66.0); PLATELET COUNT, AUTOMATED 199 10^3/uL (150-450); RED BLOOD COUNT 4.29 10^6/uL (4.30-6.10); WHITE BLOOD COUNT 12.7 10^3/uL (4.0-10.0)
[2021-09-01 16:58] LABS: ALBUMIN 3.4 GM/DL (3.2-5.2); ALT/SGPT 21 U/L (12-78); BILIRUBIN,DIRECT 0.3 MG/DL (0.0-0.2); BILIRUBIN,TOTAL 0.8 MG/DL (0.2-1.0); BLOOD UREA NITROGEN 27 MG/DL (7-18); CALCIUM LEVEL 9.2 MG/DL (8.8-10.2); CARBON DIOXIDE LEVEL 31 MEQ/L (21-32); CHLORIDE LEVEL 104 MEQ/L (98-107); CREATININE FOR GFR 1.22 MG/DL (0.70-1.30); GLOMERULAR FILTRATION RATE > 60.0 (>35); GLUCOSE, FASTING 108 MG/DL (70-100); LIPASE 78 U/L (73-393); NT-PRO BNP 3222 PG/ML (<450); POTASSIUM SERUM 4.6 MEQ/L (3.5-5.1); SODIUM LEVEL 139 MEQ/L (136-145); TOTAL PROTEIN 6.7 GM/DL (6.4-8.2)
[2021-09-01] MEDS ORDERED: ISOVUE-370 76% 100ML VIAL As Ordered ONE (17:15)
[2021-09-01] MEDS ORDERED: MORPHINE 4 MG/ML 1ML VIAL/SYRINGE IV PRN (20:20)
[2021-09-01] MEDS ORDERED: KETOROLAC 30 MG/ML 1ML VIAL IV PRN (20:20)
[2021-09-01] MEDS ORDERED: ONDANSETRON 4MG/2ML VIAL IV PRN (20:20)
[2021-09-01] MEDS ORDERED: TORS10TA3 PO (20:48)
[2021-09-01] MEDS ORDERED: MULT-4 PO (20:48)
[2021-09-01] MEDS ORDERED: SPIR-10 PO (20:48)
[2021-09-01] MEDS ORDERED: ELIQ5TAB PO (20:48)
[2021-09-01] MEDS ORDERED: OMEP-173 PO (20:48)
[2021-09-01] MEDS ORDERED: FLUTISP NARES (20:48)
[2021-09-01] MEDS ORDERED: OXYB15TA14 PO (20:48)
[2021-09-01] MEDS ORDERED: LOPR1TAB6 PO (20:48)
[2021-09-01] MEDS ORDERED: HOME MED LIST COMPLETE! XX SCH (20:50)
[2021-09-01] MEDS: METOPROLOL 5 MG/5 ML VIAL IV SCH (21:43)
[2021-09-01] MEDS ORDERED: ALBUTEROL 90 MCG/ACT 8GM HFA INHALER INH PRN (21:45)
[2021-09-01] MEDS: NS 1,000 ML IV SCH (22:13)
[2021-09-01 22:16] LABS: RSV AMPLIFICATION NEGATIVE (NEGATIVE)
[2021-09-01 23:00] VITALS: BP 119/70
[2021-09-02] MEDS: METOPROLOL 5 MG/5 ML VIAL IV SCH ×2 (02:41→09:00)
[2021-09-02] MEDS ORDERED: NS 500 ML IV ONE (02:45)
[2021-09-02 04:00] VITALS: BP 90/50
[2021-09-02] MEDS: NS 1,000 ML IV SCH ×2 (05:39→15:20)
[2021-09-02 06:15] LABS: HEMATOCRIT 33.1 % (42.0-52.0); MEAN CORPUSCULAR HEMOGLOBIN 30.7 pg (27.0-33.0); MEAN CORPUSCULAR HGB CONC 32.9 g/dl (32.0-36.5); MEAN CORPUSCULAR VOLUME 93.2 fl (80.0-96.0); PLATELET COUNT, AUTOMATED 149 10^3/uL (150-450); RED BLOOD COUNT 3.55 10^6/uL (4.30-6.10); WHITE BLOOD COUNT 7.2 10^3/uL (4.0-10.0)
[2021-09-02 06:20] LABS: HEMOGLOBIN 10.9 g/dl (13.5-17.5)
[2021-09-02 06:21] LABS: BLOOD UREA NITROGEN 22 MG/DL (7-18); CALCIUM LEVEL 8.1 MG/DL (8.8-10.2); CARBON DIOXIDE LEVEL 30 MEQ/L (21-32); CHLORIDE LEVEL 112 MEQ/L (98-107); CREATININE FOR GFR 0.86 MG/DL (0.70-1.30); GLOMERULAR FILTRATION RATE > 60.0 (>35); GLUCOSE, FASTING 91 MG/DL (70-100); SODIUM LEVEL 145 MEQ/L (136-145)
[2021-09-02 08:00] VITALS: BP 98/56
[2021-09-02] MEDS ORDERED: FLUTICASONE PROP 0.05% NASAL SPRAY 16 GM (FLONASE) NARES SCH (09:00)
[2021-09-02] MEDS ORDERED: oxyBUTYnin *DITROPAN XL* 5 MG TABCR PO SCH (09:00)
[2021-09-02] MEDS ORDERED: OMEPRAZOLE 20MG CAP PO SCH (09:00)
[2021-09-02] MEDS ORDERED: SPIRONOLACTONE 12.5MG PER 1/2 TABLET PO SCH (09:00)
[2021-09-02] MEDS ORDERED: TORSEMIDE 10 MG TABLET PO SCH (09:00)
[2021-09-02] MEDS ORDERED: METOPROLOL TART 50 MG TAB PO SCH (09:00)
[2021-09-02 11:48] VITALS: BP 100/50
[2021-09-02 12:33] VITALS: BP 100/50
[2021-09-02 15:41] VITALS: BP 104/68
[2021-09-02] MEDS ORDERED: METO25TA4 PO (17:32)
[2021-09-02] MEDS ORDERED: ACET-683 PO (17:32)
== END 2021-09-02 17:59 | disposition home or self-care (01) | DRG 390 ==
LOC: M ED 15:46 → M ED INP 20:17 → M PCU 22:50
PROVIDERS: ADMIT Internal Medicine; ATTEND Internal Medicine
DX: K56.609 Unspecified intestinal obstruction, unspecified as to partial versus complete obstruction (principal); I48.91 Unspecified atrial fibrillation; J44.9 Chronic obstructive pulmonary disease, unspecified; K21.9 Gastro-esophageal reflux disease without esophagitis; I10 Essential (primary) hypertension; Z79.01 Long term (current) use of anticoagulants; Z85.46 Personal history of malignant neoplasm of prostate; Z90.49 Acquired absence of other specified parts of digestive tract; Z87.891 Personal history of nicotine dependence; Z20.822 Contact with and (suspected) exposure to COVID-19; Z88.0 Allergy status to penicillin; Z79.899 Other long term (current) drug therapy; Z91.19 Patient's noncompliance with other medical treatment and regimen

== ENCOUNTER → 2021-10-17 | Outpatient (CLI) | payer MEDICARE, BC ==
[~2021-10-17] MED LIST changes: +ACET-683 PO; +ELIQ5TAB PO; +FLUTISP NARES; +LOPR1TAB6 PO; +METO25TA4 PO; +MULT-4 PO; +OMEP-173 PO; +OXYB15TA14 PO; +SPIR-10 PO; +TORS10TA3 PO
[2021-10-17 13:00] LABS: BASO % 0.3 % (0.0-1.0); EOS % 0.4 % (0.0-3.0); HEMATOCRIT 36.8 % (42.0-52.0); HEMOGLOBIN 12.1 g/dl (13.5-17.5); LYMPH % 13.6 % (24.0-44.0); MEAN CORPUSCULAR HEMOGLOBIN 31.3 pg (27.0-33.0); MEAN CORPUSCULAR HGB CONC 32.9 g/dl (32.0-36.5); MEAN CORPUSCULAR VOLUME 95.1 fl (80.0-96.0); MONO # 0.7 10^3/uL (0.0-0.8); MONO % 9.6 % (2.0-8.0); NEUTROPHILS # 5.5 10^3/uL (1.5-8.5); PLATELET COUNT, AUTOMATED 175 10^3/uL (150-450); RED BLOOD COUNT 3.87 10^6/uL (4.30-6.10); WHITE BLOOD COUNT 7.3 10^3/uL (4.0-10.0)
[2021-10-17 13:52] LABS: ALBUMIN 3.1 GM/DL (3.2-5.2); CALCIUM LEVEL 8.9 MG/DL (8.8-10.2); CREATININE FOR GFR 1.25 MG/DL (0.70-1.30); GLOMERULAR FILTRATION RATE 58.7 (>35); PHOSPHORUS LEVEL 3.1 MG/DL (2.5-4.9); POTASSIUM SERUM 3.5 MEQ/L (3.5-5.1)
== END ==
LOC: M ADAMS 09:33
PROVIDERS: ATTEND Internal Medicine Cardiovascular Disease
DX: I50.32 Chronic diastolic (congestive) heart failure (principal)

== ENCOUNTER → 2021-12-20 | Outpatient (CLI) | payer MEDICARE, BC ==
[2021-12-20 13:51] LABS: BLOOD UREA NITROGEN 17 MG/DL (7-18); CARBON DIOXIDE LEVEL 32 MEQ/L (21-32); CHLORIDE LEVEL 103 MEQ/L (98-107); CREATININE FOR GFR 1.15 MG/DL (0.70-1.30); GLOMERULAR FILTRATION RATE > 60.0 (>35); GLUCOSE, FASTING 78 MG/DL (70-100); NT-PRO BNP 1853 PG/ML (<450); PHOSPHORUS LEVEL 2.7 MG/DL (2.5-4.9); POTASSIUM SERUM 4.2 MEQ/L (3.5-5.1); SODIUM LEVEL 140 MEQ/L (136-145)
== END ==
LOC: M ADAMS 08:14
PROVIDERS: ATTEND Internal Medicine Cardiovascular Disease
DX: I50.32 Chronic diastolic (congestive) heart failure (principal)

== ENCOUNTER → 2022-02-06 | Outpatient (CLI) | payer MEDICARE, BC ==
[2022-02-06 14:07] LABS: BASO % 0.3 % (0.0-1.0); EOS # 0.1 10^3/uL (0.0-0.5); EOS % 0.9 % (0.0-3.0); HEMATOCRIT 39.3 % (42.0-52.0); HEMOGLOBIN 12.5 g/dl (13.5-17.5); LYMPH # 1.1 10^3/uL (1.5-5.0); LYMPH % 13.4 % (24.0-44.0); MEAN CORPUSCULAR HEMOGLOBIN 29.3 pg (27.0-33.0); MEAN CORPUSCULAR HGB CONC 31.8 g/dl (32.0-36.5); MONO # 0.8 10^3/uL (0.0-0.8); MONO % 9.9 % (2.0-8.0); NEUTROPHILS # 5.9 10^3/uL (1.5-8.5); NEUTROPHILS % 75.1 % (36.0-66.0); PLATELET COUNT, AUTOMATED 193 10^3/uL (150-450); RED BLOOD COUNT 4.27 10^6/uL (4.30-6.10); WHITE BLOOD COUNT 7.9 10^3/uL (4.0-10.0)
[2022-02-06 14:42] LABS: ALBUMIN 3.2 GM/DL (3.2-5.2); BLOOD UREA NITROGEN 17 MG/DL (7-18); CARBON DIOXIDE LEVEL 33 MEQ/L (21-32); CHLORIDE LEVEL 102 MEQ/L (98-107); CREATININE FOR GFR 1.19 MG/DL (0.70-1.30); GLOMERULAR FILTRATION RATE > 60.0 (>35); GLUCOSE, FASTING 70 MG/DL (70-100); NT-PRO BNP 1717 PG/ML (<450); PHOSPHORUS LEVEL 2.7 MG/DL (2.5-4.9); POTASSIUM SERUM 3.7 MEQ/L (3.5-5.1); SODIUM LEVEL 139 MEQ/L (136-145)
== END ==
LOC: M ADAMS 08:24
PROVIDERS: ATTEND Internal Medicine Cardiovascular Disease
DX: I50.42 Chronic combined systolic (congestive) and diastolic (congestive) heart failure (principal); I48.21 Permanent atrial fibrillation; I08.0 Rheumatic disorders of both mitral and aortic valves

== ENCOUNTER → 2022-05-18 | Outpatient (CLI) | payer MEDICARE, BC ==
[2022-05-18 14:03] LABS: HEMATOCRIT 38.7 % (42.0-52.0); HEMOGLOBIN 12.4 g/dl (13.5-17.5); MEAN CORPUSCULAR HEMOGLOBIN 29.1 pg (27.0-33.0); MEAN CORPUSCULAR VOLUME 90.8 fl (80.0-96.0); PLATELET COUNT, AUTOMATED 179 10^3/uL (150-450); RED BLOOD COUNT 4.26 10^6/uL (4.30-6.10); WHITE BLOOD COUNT 10.7 10^3/uL (4.0-10.0)
[2022-05-18 14:31] LABS: MAGNESIUM LEVEL 1.8 MG/DL (1.8-2.4)
[2022-05-18 14:34] LABS: CALCIUM LEVEL 9.2 MG/DL (8.3-10.6); CREATININE FOR GFR 1.24 MG/DL (0.70-1.30); GLOMERULAR FILTRATION RATE 59.1 (>35); POTASSIUM SERUM 4.3 MMOL/L (3.5-5.1)
== END ==
LOC: M LABDRWAD 08:22
PROVIDERS: ATTEND Physician Assistant
DX: I50.42 Chronic combined systolic (congestive) and diastolic (congestive) heart failure (principal); I48.21 Permanent atrial fibrillation

== ENCOUNTER 2022-05-21 17:56 | Emergency (ER) | payer BC, MEDICARE ==
[~2022-05-21] VITALS: Ht 177.8 cm; Wt 72.7 kg
[2022-05-21 18:22] VITALS: BP 127/71
[2022-05-21] MEDS ORDERED: LIDOCAINE W/EPINEPHRINE 1% 20ML VIAL SC ONE (18:25)
[2022-05-21] MEDS ORDERED: LIDOCAINE W/EPINEPHRINE 1% 20ML VIAL As Ordered ONE (18:25)
[2022-05-21] MEDS ORDERED: BOOSTRIX/ADACEL VACCINE (DIPHTH/PERTUSS/ACELL/TETANUS) 0.5ML SYR IM ONE (19:10)
== END 2022-05-21 20:04 | disposition home or self-care (01) ==
LOC: M ED 17:56 → EDBD 17:56 → M ED 20:04
DX: S01.419A Laceration without foreign body of unspecified cheek and temporomandibular area, initial encounter (principal); W19.XXXA Unspecified fall, initial encounter; Y92.099 Unspecified place in other non-institutional residence as the place of occurrence of the external cause; I50.9 Heart failure, unspecified; I48.91 Unspecified atrial fibrillation; Z79.899 Other long term (current) drug therapy; Z88.0 Allergy status to penicillin

== ENCOUNTER 2022-08-17 10:21 | Inpatient (IN) | payer MEDICARE, BC ==
[~2022-08-17] VITALS: Ht 177.8 cm; Wt 72.7 kg
[~2022-08-17 10:21] MED LIST changes: -OXYC-403 PO; +OXYC-673 PO
[2022-08-17] MEDS ORDERED: ASAC800T3 PO (11:00)
[2022-08-17 11:08] LABS: BASO % 0.1 % (0.0-1.0); HEMATOCRIT 30.2 % (42.0-52.0); LYMPH # 0.5 10^3/uL (1.5-5.0); LYMPH % 4.1 % (24.0-44.0); MEAN CORPUSCULAR HEMOGLOBIN 29.1 pg (27.0-33.0); MEAN CORPUSCULAR HGB CONC 33.1 g/dl (32.0-36.5); MEAN CORPUSCULAR VOLUME 87.8 fl (80.0-96.0); MONO # 1.2 10^3/uL (0.0-0.8); MONO % 8.9 % (2.0-8.0); NEUTROPHILS # 11.4 10^3/uL (1.5-8.5); NEUTROPHILS % 85.4 % (36.0-66.0); PLATELET COUNT, AUTOMATED 150 10^3/uL (150-450); RED BLOOD COUNT 3.44 10^6/uL (4.30-6.10); WHITE BLOOD COUNT 13.3 10^3/uL (4.0-10.0)
[2022-08-17 11:31] LABS: CK-MB VALUE MASS < 1.0 NG/ML (<3.6)
[2022-08-17 11:33] LABS: BLOOD UREA NITROGEN 27 MG/DL (9-23); CALCIUM LEVEL 8.2 MG/DL (8.3-10.6); CARBON DIOXIDE LEVEL 32 MMOL/L (20-31); CHLORIDE LEVEL 100 MMOL/L (98-107); CPK CREATINE PHOSPHOKINASE < 15 U/L (46-171); CREATININE FOR GFR 1.31 MG/DL (0.70-1.30); GLOMERULAR FILTRATION RATE 55.5 (>35); GLUCOSE, FASTING 111 MG/DL (74-106); POTASSIUM SERUM 3.8 MMOL/L (3.5-5.1); SODIUM LEVEL 137 MMOL/L (136-145)
[2022-08-17] MEDS ORDERED: ISOVUE-370 76% 100ML VIAL As Ordered ONE (12:33)
[2022-08-17] MEDS ORDERED: ACETAMINOPHEN TAB 650MG DOSE (2X325MG) PO PRN (14:30)
[2022-08-17] MEDS ORDERED: OMEP-173 PO (14:38)
[2022-08-17] MEDS ORDERED: DIGO0.123 PO (14:38)
[2022-08-17] MEDS ORDERED: ALBUTEROL 90 MCG/ACT 8GM HFA INHALER INH PRN (14:50)
[2022-08-17] MEDS ORDERED: METO50TA7 PO (14:51)
[2022-08-17] MEDS ORDERED: HOME MED LIST COMPLETE! XX SCH (14:55)
[2022-08-17] MEDS ORDERED: cefTRIAXone SOD 2 GM in D5W MINI-BAG PLUS 50 ML IV SCH (15:00)
[2022-08-17] MEDS: AZITHROMYCIN 250MG TABLET PO SCH (15:17)
[2022-08-17 16:00] VITALS: BP 110/58
[2022-08-17] MEDS: APIXABAN 5 MG TAB (ELIQUIS) PO SCH (20:34)
[2022-08-17] MEDS: METOPROLOL TART 50 MG TAB PO SCH (20:42)
[2022-08-17 21:50] VITALS: BP 105/53
[2022-08-18 06:00] VITALS: BP 106/55
[2022-08-18 06:06] LABS: HEMATOCRIT 28.2 % (42.0-52.0); HEMOGLOBIN 9.2 g/dl (13.5-17.5); MEAN CORPUSCULAR HEMOGLOBIN 28.2 pg (27.0-33.0); MEAN CORPUSCULAR HGB CONC 32.6 g/dl (32.0-36.5); MEAN CORPUSCULAR VOLUME 86.5 fl (80.0-96.0); PLATELET COUNT, AUTOMATED 168 10^3/uL (150-450); RED BLOOD COUNT 3.26 10^6/uL (4.30-6.10); WHITE BLOOD COUNT 9.6 10^3/uL (4.0-10.0)
[2022-08-18 06:40] LABS: ALBUMIN 1.8 G/DL (3.2-5.2); ALKALINE PHOSPHATASE 66 U/L (46-116); ALT/SGPT 22 U/L (7.0-40); AST/SGOT 18 U/L (<34); BILIRUBIN,TOTAL 0.7 MG/DL (0.3-1.2); BLOOD UREA NITROGEN 23 MG/DL (9-23); CALCIUM LEVEL 7.7 MG/DL (8.3-10.6); CARBON DIOXIDE LEVEL 28 MMOL/L (20-31); CHLORIDE LEVEL 102 MMOL/L (98-107); CREATININE FOR GFR 1.13 MG/DL (0.70-1.30); GLOMERULAR FILTRATION RATE > 60.0 (>35); GLUCOSE, FASTING 102 MG/DL (74-106); MAGNESIUM LEVEL 1.7 MG/DL (1.8-2.4); POTASSIUM SERUM 3.7 MMOL/L (3.5-5.1); SODIUM LEVEL 138 MMOL/L (136-145)
[2022-08-18] MEDS ORDERED: MAGNESIUM OXIDE 400MG TAB (MAG-OX) PO ONE (07:35)
[2022-08-18] MEDS ORDERED: TIOTROPIUM INHALER/CAPSULE (SPIRIVA) INH SCH (08:00)
[2022-08-18] MEDS: APIXABAN 5 MG TAB (ELIQUIS) PO SCH (08:58)
[2022-08-18] MEDS: AZITHROMYCIN 250MG TABLET PO SCH (08:58)
[2022-08-18 09:00] VITALS: BP 111/64
[2022-08-18] MEDS ORDERED: DIGOXIN 0.125 MG TAB PO SCH (09:00)
[2022-08-18] MEDS: METOPROLOL TART 50 MG TAB PO SCH (09:00)
[2022-08-18] MEDS ORDERED: MESALAMINE 400 MG CAPSULE DELAYED RELEASE (DELZICOL) PO SCH (09:00)
[2022-08-18] MEDS ORDERED: OMEPRAZOLE 20MG CAP PO SCH (09:00)
[2022-08-18] MEDS ORDERED: oxyBUTYnin *DITROPAN XL* 5 MG TABCR PO SCH (09:00)
[2022-08-18] MEDS ORDERED: SPIRONOLACTONE 25 MG TAB PO SCH (09:00)
[2022-08-18] MEDS ORDERED: TORSEMIDE 10 MG TABLET PO SCH (09:00)
[2022-08-18] MEDS ORDERED: DOCUSATE SODIUM 100MG CAPSULE PO SCH (09:00)
[2022-08-18] MEDS ORDERED: CEFD300C PO (09:23)
[2022-08-18] MEDS ORDERED: AZIT-12 PO (09:23)
== END 2022-08-18 11:07 | disposition home or self-care (01) | DRG 194 ==
LOC: EDBD 10:21 → M ED 10:21 → M ED INP 14:40 → ENRESERV 15:25 → M MSPAV 16:00
PROVIDERS: ADMIT Family Medicine; ATTEND Family Medicine
DX: J18.9 Pneumonia, unspecified organism (principal); J44.0 Chronic obstructive pulmonary disease with (acute) lower respiratory infection; I48.91 Unspecified atrial fibrillation; I27.20 Pulmonary hypertension, unspecified; Z87.891 Personal history of nicotine dependence; I10 Essential (primary) hypertension; D72.829 Elevated white blood cell count, unspecified; Z20.822 Contact with and (suspected) exposure to COVID-19; Z79.01 Long term (current) use of anticoagulants; Z79.899 Other long term (current) drug therapy; Z88.0 Allergy status to penicillin

== ENCOUNTER → 2022-10-10 | Outpatient (REF) | payer BC ==
[~2022-10-10] MED LIST changes: +AZIT-12 PO; +CEFD300C PO; +DIGO0.123 PO; +FLUT50SP17 NARES; -FLUTISP NARES; +METO50TA7 PO
[2022-10-10 13:13] LABS: ALBUMIN 2.8 G/DL (3.2-5.2); ALKALINE PHOSPHATASE 58 U/L (46-116); ALT/SGPT < 9 U/L (7.0-40); AST/SGOT 11 U/L (<34); BILIRUBIN,TOTAL 0.5 MG/DL (0.3-1.2); BLOOD UREA NITROGEN 19 MG/DL (9-23); CALCIUM LEVEL 8.7 MG/DL (8.3-10.6); CARBON DIOXIDE LEVEL 33 MMOL/L (20-31); CHLORIDE LEVEL 104 MMOL/L (98-107); CREATININE FOR GFR 1.25 MG/DL (0.70-1.30); GLOMERULAR FILTRATION RATE 58.6 (>35); GLUCOSE, FASTING 99 MG/DL (74-106); POTASSIUM SERUM 4.2 MMOL/L (3.5-5.1); SODIUM LEVEL 140 MMOL/L (136-145); TOTAL PROTEIN 6.3 G/DL (5.7-8.2)
== END ==
LOC: M LABDRWAD 12:34
PROVIDERS: ATTEND Family Medicine
DX: R93.89 Abnormal findings on diagnostic imaging of other specified body structures (principal)

== ENCOUNTER → 2022-10-17 | Outpatient (CLI) | payer BC ==
[~2022-10-17] MED LIST changes: +ISOVUE-370 76% 100ML VIAL As Ordered ONE
== END ==
LOC: M RAD 15:28
PROVIDERS: ATTEND Family Medicine
DX: R93.1 Abnormal findings on diagnostic imaging of heart and coronary circulation (principal); J43.9 Emphysema, unspecified; J47.9 Bronchiectasis, uncomplicated
CPT/HCPCS: 71260; Q9967

== ENCOUNTER 2022-11-10 10:17 | Emergency (ER) | payer BC ==
[~2022-11-10] VITALS: Ht 177.8 cm; Wt 68.5 kg
[~2022-11-10 10:17] MED LIST changes: -ISOVUE-370 76% 100ML VIAL As Ordered ONE
[2022-11-10 12:10] VITALS: BP 123/59
== END 2022-11-10 12:17 | disposition home or self-care (01) ==
LOC: M ED 10:17
DX: U07.1 COVID-19 (principal); J44.9 Chronic obstructive pulmonary disease, unspecified; K21.9 Gastro-esophageal reflux disease without esophagitis; Z85.46 Personal history of malignant neoplasm of prostate; Z87.891 Personal history of nicotine dependence; Z88.0 Allergy status to penicillin; Z79.01 Long term (current) use of anticoagulants; Z79.899 Other long term (current) drug therapy; Z79.51 Long term (current) use of inhaled steroids

== ENCOUNTER → 2022-11-15 | Outpatient (CLI) | payer BC | LOC: M ADAMS 13:27 | PROVIDERS: ATTEND Physician Assistant | DX: J44.9 Chronic obstructive pulmonary disease, unspecified (principal); R91.8 Other nonspecific abnormal finding of lung field ==

== ENCOUNTER → 2023-01-03 | Outpatient (REF) | payer BC ==
[2023-01-03 13:01] LABS: BASO % 0.3 % (0.0-1.0); EOS # 0.1 10^3/uL (0.0-0.5); EOS % 0.8 % (0.0-3.0); HEMATOCRIT 32.9 % (42.0-52.0); HEMOGLOBIN 10.7 g/dl (13.5-17.5); LYMPH # 1.2 10^3/uL (1.5-5.0); LYMPH % 15.3 % (24.0-44.0); MEAN CORPUSCULAR HEMOGLOBIN 27.9 pg (27.0-33.0); MEAN CORPUSCULAR HGB CONC 32.5 g/dl (32.0-36.5); MEAN CORPUSCULAR VOLUME 85.7 fl (80.0-96.0); MONO # 0.7 10^3/uL (0.0-0.8); MONO % 9.2 % (2.0-8.0); NEUTROPHILS # 5.8 10^3/uL (1.5-8.5); PLATELET COUNT, AUTOMATED 129 10^3/uL (150-450); RED BLOOD COUNT 3.84 10^6/uL (4.30-6.10); WHITE BLOOD COUNT 7.8 10^3/uL (4.0-10.0)
[2023-01-03 13:30] LABS: ALBUMIN 3.1 G/DL (3.2-5.2); ALKALINE PHOSPHATASE 64 U/L (46-116); ALT/SGPT < 9 U/L (7.0-40); AST/SGOT 9 U/L (<34); BILIRUBIN,TOTAL 0.7 MG/DL (0.3-1.2); BLOOD UREA NITROGEN 20 MG/DL (9-23); CALCIUM LEVEL 9.1 MG/DL (8.3-10.6); CARBON DIOXIDE LEVEL 32 MMOL/L (20-31); CHLORIDE LEVEL 98 MMOL/L (98-107); CREATININE FOR GFR 1.33 MG/DL (0.70-1.30); GLOMERULAR FILTRATION RATE 54.5 (>35); GLUCOSE, FASTING 100 MG/DL (74-106); POTASSIUM SERUM 4.2 MMOL/L (3.5-5.1); SODIUM LEVEL 136 MMOL/L (136-145); TOTAL PROTEIN 6.3 G/DL (5.7-8.2)
[2023-01-03 15:10] LABS: IRON (FE) 29 UG/DL (65-175); PERCENT SATURATION 9.8 % (19.7-50.0); TOTAL IRON BINDING CAPACITY 295 UG/DL (250-425)
[2023-01-03 15:12] LABS: FOLATE 9.4 NG/ML (>5.4)
[2023-01-03 15:13] LABS: VITAMIN B12 LEVEL 283 PG/ML (211-911)
== END ==
LOC: M SFHCADAM 10:32
PROVIDERS: ATTEND Family Medicine
DX: R93.89 Abnormal findings on diagnostic imaging of other specified body structures (principal); D64.9 Anemia, unspecified

== ENCOUNTER → 2023-01-09 | Outpatient (CLI) | payer BC ==
[~2023-01-09] MED LIST changes: +GASTROGRAFIN SOLUTION 30ML As Ordered ONE; +ISOVUE-370 76% 100ML VIAL As Ordered ONE
== END ==
LOC: M RAD 13:41
PROVIDERS: ATTEND Family Medicine
DX: R63.4 Abnormal weight loss (principal); R93.89 Abnormal findings on diagnostic imaging of other specified body structures; J47.1 Bronchiectasis with (acute) exacerbation
CPT/HCPCS: 71260; 74177; Q9963; Q9967

== ENCOUNTER → 2023-01-24 | Outpatient (REF) | payer BC ==
[~2023-01-24] MED LIST changes: -GASTROGRAFIN SOLUTION 30ML As Ordered ONE; -ISOVUE-370 76% 100ML VIAL As Ordered ONE
== END ==
LOC: M SFHCADAM 16:53
PROVIDERS: ATTEND Family Medicine
DX: Z53.9 Procedure and treatment not carried out, unspecified reason (principal)

== ENCOUNTER → 2023-02-20 | Outpatient (REF) | payer BC ==
[2023-02-20 17:30] LABS: BASO % 0.2 % (0.0-1.0); EOS % 0.1 % (0.0-3.0); HEMATOCRIT 34.7 % (42.0-52.0); LYMPH # 0.6 10^3/uL (1.5-5.0); LYMPH % 4.7 % (24.0-44.0); MEAN CORPUSCULAR HEMOGLOBIN 28.6 pg (27.0-33.0); MEAN CORPUSCULAR HGB CONC 31.7 g/dl (32.0-36.5); MEAN CORPUSCULAR VOLUME 90.1 fl (80.0-96.0); MONO # 0.6 10^3/uL (0.0-0.8); MONO % 4.6 % (2.0-8.0); NEUTROPHILS # 11.8 10^3/uL (1.5-8.5); NEUTROPHILS % 89.7 % (36.0-66.0); PLATELET COUNT, AUTOMATED 163 10^3/uL (150-450); RED BLOOD COUNT 3.85 10^6/uL (4.30-6.10); WHITE BLOOD COUNT 13.1 10^3/uL (4.0-10.0)
== END ==
LOC: M SFHCADAM 12:49
PROVIDERS: ATTEND Family Medicine
DX: D50.9 Iron deficiency anemia, unspecified (principal)

== ENCOUNTER → 2023-02-27 | Outpatient (REF) | payer BC | LOC: M SFHCADAM 12:19 | PROVIDERS: ATTEND Family Medicine | DX: D50.9 Iron deficiency anemia, unspecified (principal) ==

== ENCOUNTER → 2023-04-23 | Outpatient (REF) | payer BC ==
[2023-04-23 13:34] LABS: BASO % 0.2 % (0.0-1.0); EOS % 0.2 % (0.0-3.0); HEMATOCRIT 36.3 % (42.0-52.0); LYMPH # 0.9 10^3/uL (1.5-5.0); LYMPH % 6.8 % (24.0-44.0); MEAN CORPUSCULAR HGB CONC 33.1 g/dl (32.0-36.5); MEAN CORPUSCULAR VOLUME 93.8 fl (80.0-96.0); MONO % 7.2 % (2.0-8.0); NEUTROPHILS # 11.5 10^3/uL (1.5-8.5); NEUTROPHILS % 84.8 % (36.0-66.0); PLATELET COUNT, AUTOMATED 152 10^3/uL (150-450); RED BLOOD COUNT 3.87 10^6/uL (4.30-6.10); WHITE BLOOD COUNT 13.5 10^3/uL (4.0-10.0)
[2023-04-23 13:59] LABS: BLOOD UREA NITROGEN 23 MG/DL (9-23); CALCIUM LEVEL 9.4 MG/DL (8.3-10.6); CARBON DIOXIDE LEVEL 33 MMOL/L (20-31); CHLORIDE LEVEL 100 MMOL/L (98-107); CREATININE FOR GFR 1.09 MG/DL (0.70-1.30); GLOMERULAR FILTRATION RATE > 60.0 (>35); GLUCOSE, FASTING 99 MG/DL (74-106); SODIUM LEVEL 142 MMOL/L (136-145)
[2023-04-23 14:00] LABS: IRON (FE) 44 UG/DL (65-175); PERCENT SATURATION 14.7 % (19.7-50.0); TOTAL IRON BINDING CAPACITY 299 UG/DL (250-425)
== END ==
LOC: M SFHCADAM 07:36
PROVIDERS: ATTEND Physician Assistant
DX: D50.9 Iron deficiency anemia, unspecified (principal)

== ENCOUNTER → 2023-08-01 | Outpatient (CLI) | payer BC ==
[~2023-08-01] MED LIST changes: -FLUT50SP17 NARES; +FLUTISP NARES
== END ==
LOC: M RAD 15:29
PROVIDERS: ATTEND Internal Medicine Pulmonary Disease
DX: R91.8 Other nonspecific abnormal finding of lung field (principal); J47.9 Bronchiectasis, uncomplicated

== ENCOUNTER → 2023-11-26 | Outpatient (CLI) | payer BC | LOC: M PLAIMG 07:30 | PROVIDERS: ATTEND Internal Medicine Pulmonary Disease | DX: R91.8 Other nonspecific abnormal finding of lung field (principal); I70.0 Atherosclerosis of aorta; I25.10 Atherosclerotic heart disease of native coronary artery without angina pectoris; J98.4 Other disorders of lung; J84.10 Pulmonary fibrosis, unspecified; J47.9 Bronchiectasis, uncomplicated; J44.9 Chronic obstructive pulmonary disease, unspecified ==

== ENCOUNTER 2024-06-08 22:03 | Emergency (ER) | payer BC, MEDICARE ==
[2024-06-09] MEDS: NS (Normal Saline) 0.9% 1,000 ML IV ONE (01:31)
[2024-06-09 01:38] LABS: BASO % 0.1 % (0.0-1.0); EOS % 0.1 % (0.0-3.0); HEMATOCRIT 35.1 % (42.0-52.0); HEMOGLOBIN 11.6 g/dl (13.5-17.5); LYMPH # 0.5 10^3/uL (1.5-5.0); LYMPH % 5.3 % (24.0-44.0); MEAN CORPUSCULAR HEMOGLOBIN 30.4 pg (27.0-33.0); MEAN CORPUSCULAR VOLUME 91.9 fl (80.0-96.0); MONO # 0.8 10^3/uL (0.0-0.8); MONO % 9.6 % (2.0-8.0); NEUTROPHILS % 83.6 % (36.0-66.0); PLATELET COUNT, AUTOMATED 109 10^3/uL (150-450); RED BLOOD COUNT 3.82 10^6/uL (4.30-6.10); WHITE BLOOD COUNT 8.4 10^3/uL (4.0-10.0)
[2024-06-09 02:03] LABS: ALBUMIN 2.1 G/DL (3.2-5.2); ALKALINE PHOSPHATASE 57 U/L (40-129); ALT/SGPT 9 U/L (7.0-40); AST/SGOT 32 U/L (<34); BILIRUBIN,TOTAL 1.2 MG/DL (0.3-1.2); BLOOD UREA NITROGEN 25 MG/DL (9-23); CALCIUM LEVEL 8.4 MG/DL (8.3-10.6); CARBON DIOXIDE LEVEL 36 MMOL/L (20-31); CHLORIDE LEVEL 98 MMOL/L (98-107); CREATININE FOR GFR 0.97 MG/DL (0.70-1.30); GLOMERULAR FILTRATION RATE > 60.0 (>35); GLUCOSE, FASTING 106 MG/DL (74-106); SODIUM LEVEL 139 MMOL/L (136-145); TOTAL PROTEIN 5.7 G/DL (5.7-8.2)
[2024-06-09 06:41] VITALS: BP 123/57; TEMP 97.3; O2SAT 97
[2024-06-09] MEDS ORDERED: LEVO1TAB40 PO (11:02)
== END 2024-06-09 07:55 | disposition home or self-care (01) ==
LOC: M ED 22:03 → EDBD 22:03 → M ED 06-09 07:55
DX: J12.89 Other viral pneumonia (principal); U07.1 COVID-19; Z79.01 Long term (current) use of anticoagulants; Z79.899 Other long term (current) drug therapy; Z88.0 Allergy status to penicillin

== ENCOUNTER → 2024-06-19 | Outpatient (CLI) | payer BC ==
[~2024-06-19] MED LIST changes: +LEVO1TAB40 PO; +PRED10TA2 PO
== END ==
LOC: M RAD 07:12
PROVIDERS: ATTEND Physician Assistant Medical
DX: R93.89 Abnormal findings on diagnostic imaging of other specified body structures (principal)

== ENCOUNTER 2024-06-20 11:08 | Inpatient (IN) | payer BC ==
[2024-06-20] VITALS (11 sets, daily range): BP systolic 83–96; BP diastolic 47–65; TEMP 95.6–97.8; O2SAT 96–100
[~2024-06-20] VITALS: Ht 177.8 cm; Wt 57.1 kg
[~2024-06-20 11:08] MED LIST changes: -PRED10TA2 PO
[2024-06-20 12:04] LABS: ABG BASE EXCESS 4.8 (-2.0-2.0); ABG HCO3 28.3 MMOL/L (22.0-26.0); ABG O2 SATURATION 97.8 % (95.0-99.0); ABG PARTIAL PRESSURE CO2 37.9 mmHg (35.0-45.0); ABG PARTIAL PRESSURE O2 115.9 mmHg (75.0-100.0); ABG STANDARD HCO3 28.8 MMOL/L. (22.0-26.0); ABG TOTAL CO2 29.5 MMOL/L (23.0-31.0); ABG pH (ARTERIAL) 7.491 UNITS (7.350-7.450)
[2024-06-20 12:24] LABS: BASO % 0.1 % (0.0-1.0); HEMATOCRIT 32.9 % (42.0-52.0); LYMPH # 0.2 10^3/uL (1.5-5.0); LYMPH % 1.1 % (24.0-44.0); MEAN CORPUSCULAR HEMOGLOBIN 30.8 pg (27.0-33.0); MEAN CORPUSCULAR HGB CONC 33.4 g/dl (32.0-36.5); MEAN CORPUSCULAR VOLUME 92.2 fl (80.0-96.0); MONO # 0.9 10^3/uL (0.0-0.8); NEUTROPHILS # 20.2 10^3/uL (1.5-8.5); NEUTROPHILS % 92.6 % (36.0-66.0); PLATELET COUNT, AUTOMATED 108 10^3/uL (150-450); RED BLOOD COUNT 3.57 10^6/uL (4.30-6.10); WHITE BLOOD COUNT 21.9 10^3/uL (4.0-10.0)
[2024-06-20 12:47] LABS: CPK CREATINE PHOSPHOKINASE 110 U/L (46-171)
[2024-06-20 12:48] LABS: ALBUMIN 2.7 G/DL (3.2-5.2); ALKALINE PHOSPHATASE 62 U/L (40-129); ALT/SGPT < 9 U/L (7.0-40); AST/SGOT 15 U/L (<34); BILIRUBIN,DIRECT 0.6 MG/DL (<0.4); BILIRUBIN,TOTAL 1.1 MG/DL (0.3-1.2); BLOOD UREA NITROGEN 31 MG/DL (9-23); CALCIUM LEVEL 8.7 MG/DL (8.3-10.6); CARBON DIOXIDE LEVEL 35 MMOL/L (20-31); CHLORIDE LEVEL 97 MMOL/L (98-107); GLOMERULAR FILTRATION RATE > 60.0 (>35); GLUCOSE, FASTING 115 MG/DL (74-106); SODIUM LEVEL 138 MMOL/L (136-145); TOTAL PROTEIN 6.1 G/DL (5.7-8.2)
[2024-06-20 12:50] LABS: THYROID STIMULATING HORMONE 1.578 uIU/ML (0.55-4.78)
[2024-06-20 12:54] LABS: CK-MB VALUE MASS < 1.0 NG/ML (<3.6)
[2024-06-20] MEDS: AZITHROMYCIN INJ 500 MG, VIAL MATE ADAPTER 1 EACH in D5W 250 ML IV ONE (14:00)
[2024-06-20 14:02] LABS: PROCALCITONIN 0.19 ng/ml
[2024-06-20] MEDS: NS 500 ML IV ONE (14:07)
[2024-06-20] MEDS: cefTRIAXone SOD 2 GM in DEXTROSE 5% (D5W) ADV/MINI-BAG 50 ML IV ONE (14:07)
[2024-06-20] MEDS: NS (Normal Saline) 0.9% 1,000 ML in IV 1 EA IV ONE (14:55)
[2024-06-20 15:06] LABS: CK-MB VALUE MASS < 1.0 NG/ML (<3.6)
[2024-06-20 15:11] LABS: CPK CREATINE PHOSPHOKINASE 28 U/L (46-171); MB/CK RELATIVE INDEX 3.57 (< OR =4)
[2024-06-20] MEDS: methylPREDNISolone 125MG 2ML VIAL IV ONE (16:11)
[2024-06-20] MEDS: PANTOPRAZOLE 40MG VIAL IV ONE (16:12)
[2024-06-20 16:18] LABS: MEAN CORPUSCULAR HEMOGLOBIN 30.4 pg (27.0-33.0); MEAN CORPUSCULAR HGB CONC 32.7 g/dl (32.0-36.5); MEAN CORPUSCULAR VOLUME 92.9 fl (80.0-96.0); WHITE BLOOD COUNT 18.1 10^3/uL (4.0-10.0)
[2024-06-20] MEDS ORDERED: PRED10TA2 PO (16:20)
[2024-06-20 16:25] LABS: HEMOGLOBIN 8.5 g/dl (13.5-17.5); PLATELET COUNT, AUTOMATED 87 10^3/uL (150-450)
[2024-06-20] MEDS ORDERED: HOME MED LIST COMPLETE! XX SCH (16:35)
[2024-06-20] MEDS: FACTOR XA,INACTIVATED-ZHZO 400 MG in APPROPRIATE DILUENT 40 ML IV ONE (19:49)
[2024-06-20] MEDS: FACTOR XA,INACTIVATED-ZHZO 480 MG in APPROPRIATE DILUENT 48 ML IV ONE (20:00)
[2024-06-20] MEDS: FORMOTEROL FUMARATE 20 MCG/2 ML INHALATION SOLUTION (PERFOROMIST) INH SCH (22:22)
[2024-06-20] MEDS: GLYCOPYRROLATE INJ 0.2 MG/ML 2 ML VIAL NEB SCH (22:22)
[2024-06-21] VITALS (11 sets, daily range): BP systolic 90–109; BP diastolic 50–59; TEMP 97.1–98.1; O2SAT 96–100
[2024-06-21 00:13] LABS: BASO % 0.1 % (0.0-1.0); HEMATOCRIT 35.3 % (42.0-52.0); LYMPH # 0.2 10^3/uL (1.5-5.0); LYMPH % 1.7 % (24.0-44.0); MEAN CORPUSCULAR HEMOGLOBIN 29.9 pg (27.0-33.0); MEAN CORPUSCULAR HGB CONC 33.1 g/dl (32.0-36.5); MEAN CORPUSCULAR VOLUME 90.3 fl (80.0-96.0); MONO # 0.1 10^3/uL (0.0-0.8); MONO % 0.8 % (2.0-8.0); NEUTROPHILS # 12.8 10^3/uL (1.5-8.5); NEUTROPHILS % 96.3 % (36.0-66.0); RED BLOOD COUNT 3.91 10^6/uL (4.30-6.10); WHITE BLOOD COUNT 13.3 10^3/uL (4.0-10.0)
[2024-06-21 00:15] LABS: HEMOGLOBIN 11.7 g/dl (13.5-17.5); PLATELET COUNT, AUTOMATED 76 10^3/uL (150-450)
[2024-06-21 06:28] LABS: ALBUMIN 2.5 G/DL (3.2-5.2); ALKALINE PHOSPHATASE 58 U/L (40-129); ALT/SGPT < 9 U/L (7.0-40); AST/SGOT 15 U/L (<34); BILIRUBIN,TOTAL 2.3 MG/DL (0.3-1.2); BLOOD UREA NITROGEN 32 MG/DL (9-23); CALCIUM LEVEL 8.2 MG/DL (8.3-10.6); CARBON DIOXIDE LEVEL 31 MMOL/L (20-31); CHLORIDE LEVEL 101 MMOL/L (98-107); CREATININE FOR GFR 1.03 MG/DL (0.70-1.30); GLOMERULAR FILTRATION RATE > 60.0 (>35); GLUCOSE, FASTING 121 MG/DL (74-106); PHOSPHORUS LEVEL 3.6 MG/DL (2.4-5.1); POTASSIUM SERUM 3.9 MMOL/L (3.5-5.1); SODIUM LEVEL 140 MMOL/L (136-145); TOTAL PROTEIN 5.6 G/DL (5.7-8.2)
[2024-06-21 06:43] LABS: BASO % 0.1 % (0.0-1.0); HEMATOCRIT 37.1 % (42.0-52.0); HEMOGLOBIN 12.7 g/dl (13.5-17.5); LYMPH # 0.4 10^3/uL (1.5-5.0); LYMPH % 2.6 % (24.0-44.0); MEAN CORPUSCULAR HEMOGLOBIN 31.1 pg (27.0-33.0); MEAN CORPUSCULAR HGB CONC 34.2 g/dl (32.0-36.5); MEAN CORPUSCULAR VOLUME 90.9 fl (80.0-96.0); MONO # 0.7 10^3/uL (0.0-0.8); MONO % 4.7 % (2.0-8.0); NEUTROPHILS # 12.8 10^3/uL (1.5-8.5); RED BLOOD COUNT 4.08 10^6/uL (4.30-6.10); WHITE BLOOD COUNT 14.1 10^3/uL (4.0-10.0)
[2024-06-21 06:47] LABS: PLATELET COUNT, AUTOMATED 78 10^3/uL (150-450)
[2024-06-21] MEDS: TIOTROPIUM INHALER/CAPSULE (SPIRIVA) INH SCH (08:00)
[2024-06-21] MEDS: PANTOPRAZOLE 40MG VIAL IV SCH (08:04)
[2024-06-21] MEDS: cefTRIAXone SOD 1 GM in DEXTROSE 5% (D5W) ADV/MINI-BAG 50 ML IV SCH (08:04)
[2024-06-21] MEDS: methylPREDNISolone 125MG 2ML VIAL IV SCH (08:05)
[2024-06-21] MEDS: DIGOXIN INJ 0.5 MG/2 ML AMP IV SCH (08:06)
[2024-06-21 12:10] LABS: HEMATOCRIT 39.4 % (42.0-52.0); HEMOGLOBIN 13.2 g/dl (13.5-17.5); LYMPH # 0.3 10^3/uL (1.5-5.0); LYMPH % 2.2 % (24.0-44.0); MEAN CORPUSCULAR HEMOGLOBIN 30.3 pg (27.0-33.0); MEAN CORPUSCULAR HGB CONC 33.5 g/dl (32.0-36.5); MEAN CORPUSCULAR VOLUME 90.4 fl (80.0-96.0); MONO # 0.5 10^3/uL (0.0-0.8); MONO % 3.4 % (2.0-8.0); NEUTROPHILS # 12.3 10^3/uL (1.5-8.5); NEUTROPHILS % 92.7 % (36.0-66.0); RED BLOOD COUNT 4.36 10^6/uL (4.30-6.10); WHITE BLOOD COUNT 13.3 10^3/uL (4.0-10.0)
[2024-06-21 12:13] LABS: PLATELET COUNT, AUTOMATED 77 10^3/uL (150-450)
[2024-06-21] MEDS: AZITHROMYCIN INJ 500 MG, VIAL MATE ADAPTER 1 EACH in NS 250 ML IV SCH (14:01)
[2024-06-21] MEDS: HYDROCORTISONE 100MG/2ML VIAL IV ONE (15:53)
[2024-06-21] MEDS: oxyBUTYnin *DITROPAN XL* 5 MG TABCR PO SCH (15:53)
[2024-06-21] MEDS: SUCRALFATE SUSP 1GM/10ML UD PO SCH (18:03)
[2024-06-21] MEDS: IPRATROPIUM 0.5MG/ALBUTEROL 2.5MG INH SOL UD 3ML (DUONEB) NEB SCH (19:25)
[2024-06-22] VITALS (13 sets, daily range): BP systolic 88–120; BP diastolic 50–58; TEMP 96.8–98.6; O2SAT 89–98
[2024-06-22 07:23] LABS: HEMATOCRIT 34.8 % (42.0-52.0); HEMOGLOBIN 11.7 g/dl (13.5-17.5); MEAN CORPUSCULAR HEMOGLOBIN 30.3 pg (27.0-33.0); MEAN CORPUSCULAR HGB CONC 33.6 g/dl (32.0-36.5); MEAN CORPUSCULAR VOLUME 90.2 fl (80.0-96.0); RED BLOOD COUNT 3.86 10^6/uL (4.30-6.10); WHITE BLOOD COUNT 12.6 10^3/uL (4.0-10.0)
[2024-06-22 07:28] LABS: PLATELET COUNT, AUTOMATED 68 10^3/uL (150-450)
[2024-06-22 07:47] LABS: BLOOD UREA NITROGEN 28 MG/DL (9-23); CALCIUM LEVEL 8.3 MG/DL (8.3-10.6); CARBON DIOXIDE LEVEL 34 MMOL/L (20-31); CHLORIDE LEVEL 102 MMOL/L (98-107); CREATININE FOR GFR 0.94 MG/DL (0.70-1.30); GLOMERULAR FILTRATION RATE > 60.0 (>35); GLUCOSE, FASTING 109 MG/DL (74-106); POTASSIUM SERUM 3.4 MMOL/L (3.5-5.1); SODIUM LEVEL 140 MMOL/L (136-145)
[2024-06-22] MEDS: DIGOXIN 0.125 MG TAB PO SCH (07:48)
[2024-06-22 07:52] LABS: ATYPICAL LYMPH 1 % (0-5); LYMPHOCYTES 4 % (16-44); MONOCYTES 7 % (0-5); NEUTROPHILS 88 % (28-66); PLATELET ESTIMATE DECREASED (NORMAL)
[2024-06-22 07:53] LABS: ANISOCYTOSIS 1+
[2024-06-22] MEDS ORDERED: propofoL 200 MG/20 ML VIAL As Ordered ONE (08:17)
[2024-06-22] MEDS ORDERED: LIDOCAINE 2% 100MG/5ML SDV (FOR ANES.) As Ordered ONE (08:17)
[2024-06-22] MEDS: HYDROCORTISONE 100MG/2ML VIAL IV SCH (08:22)
[2024-06-22] MEDS: KCL 10MEQ/100ML SWI (KRUN) 10 MEQ in IV 1 EA IV SCH (08:22)
[2024-06-22] MEDS: BISACODYL 5MG TAB PO ONE (17:00)
[2024-06-22] MEDS: GOLYTELY SOLN 4000 ML BTL PO ONE (18:44)
[2024-06-23] VITALS (7 sets, daily range): BP systolic 97–112; BP diastolic 53–62; TEMP 97–98.2; O2SAT 91–99
[2024-06-23 05:15] LABS: BASO % 0.1 % (0.0-1.0); HEMATOCRIT 32.4 % (42.0-52.0); HEMOGLOBIN 10.7 g/dl (13.5-17.5); LYMPH # 0.3 10^3/uL (1.5-5.0); LYMPH % 2.2 % (24.0-44.0); MEAN CORPUSCULAR VOLUME 90.8 fl (80.0-96.0); MONO # 0.7 10^3/uL (0.0-0.8); MONO % 5.7 % (2.0-8.0); NEUTROPHILS # 11.5 10^3/uL (1.5-8.5); NEUTROPHILS % 90.6 % (36.0-66.0); RED BLOOD COUNT 3.57 10^6/uL (4.30-6.10); WHITE BLOOD COUNT 12.7 10^3/uL (4.0-10.0)
[2024-06-23 05:16] LABS: PLATELET COUNT, AUTOMATED 65 10^3/uL (150-450)
[2024-06-23 05:36] LABS: BLOOD UREA NITROGEN 19 MG/DL (9-23); CALCIUM LEVEL 8.3 MG/DL (8.3-10.6); CARBON DIOXIDE LEVEL 32 MMOL/L (20-31); CHLORIDE LEVEL 103 MMOL/L (98-107); CREATININE FOR GFR 0.72 MG/DL (0.70-1.30); GLOMERULAR FILTRATION RATE > 60.0 (>35); GLUCOSE, FASTING 123 MG/DL (74-106); POTASSIUM SERUM 2.7 MMOL/L (3.5-5.1); SODIUM LEVEL 142 MMOL/L (136-145)
[2024-06-23] MEDS ORDERED: KCL 10MEQ/100ML SWI (KRUN) 10 MEQ in IV 1 EA IV SCH ×2 (06:00→06:14)
[2024-06-23] MEDS: KCL 10MEQ/100ML SWI (KRUN) 10 MEQ in IV 1 EA IV SCH (06:27)
[2024-06-23] MEDS: POTASSIUM CHLORIDE 10MEQ SR TABLET PO ONE ×2 (08:04→17:54)
[2024-06-23 12:38] LABS: BLOOD UREA NITROGEN 16 MG/DL (9-23); CALCIUM LEVEL 8.5 MG/DL (8.3-10.6); CARBON DIOXIDE LEVEL 31 MMOL/L (20-31); CHLORIDE LEVEL 103 MMOL/L (98-107); CREATININE FOR GFR 0.66 MG/DL (0.70-1.30); GLOMERULAR FILTRATION RATE > 60.0 (>35); GLUCOSE, FASTING 95 MG/DL (74-106); MAGNESIUM LEVEL 1.8 MG/DL (1.8-2.4); POTASSIUM SERUM 3.3 MMOL/L (3.5-5.1); SODIUM LEVEL 142 MMOL/L (136-145)
[2024-06-23] MEDS: SIMETHICONE 40MG/0.6ML DROPS 30ML As Ordered ONE (13:17)
[2024-06-24] VITALS (7 sets, daily range): BP systolic 97–109; BP diastolic 52–58; TEMP 97.1–98.5; O2SAT 95–98
[2024-06-24 06:06] LABS: BASO % 0.2 % (0.0-1.0); EOS % 0.1 % (0.0-3.0); HEMATOCRIT 31.6 % (42.0-52.0); HEMOGLOBIN 10.5 g/dl (13.5-17.5); LYMPH # 0.5 10^3/uL (1.5-5.0); LYMPH % 4.2 % (24.0-44.0); MEAN CORPUSCULAR HEMOGLOBIN 30.6 pg (27.0-33.0); MEAN CORPUSCULAR HGB CONC 33.2 g/dl (32.0-36.5); MEAN CORPUSCULAR VOLUME 92.1 fl (80.0-96.0); MONO % 8.8 % (2.0-8.0); NEUTROPHILS # 9.8 10^3/uL (1.5-8.5); NEUTROPHILS % 85.1 % (36.0-66.0); RED BLOOD COUNT 3.43 10^6/uL (4.30-6.10); WHITE BLOOD COUNT 11.5 10^3/uL (4.0-10.0)
[2024-06-24 06:08] LABS: PLATELET COUNT, AUTOMATED 62 10^3/uL (150-450)
[2024-06-24 06:32] LABS: BLOOD UREA NITROGEN 12 MG/DL (9-23); CALCIUM LEVEL 8.3 MG/DL (8.3-10.6); CARBON DIOXIDE LEVEL 32 MMOL/L (20-31); CHLORIDE LEVEL 106 MMOL/L (98-107); CREATININE FOR GFR 0.82 MG/DL (0.70-1.30); GLOMERULAR FILTRATION RATE > 60.0 (>35); GLUCOSE, FASTING 87 MG/DL (74-106); POTASSIUM SERUM 3.7 MMOL/L (3.5-5.1); SODIUM LEVEL 141 MMOL/L (136-145)
[2024-06-24] MEDS: predniSONE 10MG TAB PO SCH (08:52)
[2024-06-25 03:42] VITALS: BP 116/65; TEMP 97.5; O2SAT 94
[2024-06-25 08:12] VITALS: BP 113/56; TEMP 98.3; O2SAT 96
[2024-06-25 08:33] LABS: HEMATOCRIT 33.8 % (42.0-52.0); HEMOGLOBIN 11.2 g/dl (13.5-17.5); MEAN CORPUSCULAR HEMOGLOBIN 30.7 pg (27.0-33.0); MEAN CORPUSCULAR HGB CONC 33.1 g/dl (32.0-36.5); MEAN CORPUSCULAR VOLUME 92.6 fl (80.0-96.0); PLATELET COUNT, AUTOMATED 62 10^3/uL (150-450); RED BLOOD COUNT 3.65 10^6/uL (4.30-6.10); WHITE BLOOD COUNT 11.2 10^3/uL (4.0-10.0)
[2024-06-25 09:21] LABS: BLOOD UREA NITROGEN 11 MG/DL (9-23); CALCIUM LEVEL 8.2 MG/DL (8.3-10.6); CARBON DIOXIDE LEVEL 32 MMOL/L (20-31); CHLORIDE LEVEL 103 MMOL/L (98-107); CREATININE FOR GFR 0.76 MG/DL (0.70-1.30); GLOMERULAR FILTRATION RATE > 60.0 (>35); GLUCOSE, FASTING 85 MG/DL (74-106); POTASSIUM SERUM 3.9 MMOL/L (3.5-5.1); SODIUM LEVEL 138 MMOL/L (136-145)
[2024-06-25 20:15] VITALS: BP 100/55; TEMP 97.7; O2SAT 96
[2024-06-26 03:43] VITALS: BP 91/43; TEMP 97.5; O2SAT 98
[2024-06-26 04:47] VITALS: BP 108/54
[2024-06-26 06:33] LABS: HEMATOCRIT 31.2 % (42.0-52.0); HEMOGLOBIN 10.2 g/dl (13.5-17.5); MEAN CORPUSCULAR HEMOGLOBIN 30.4 pg (27.0-33.0); MEAN CORPUSCULAR HGB CONC 32.7 g/dl (32.0-36.5); MEAN CORPUSCULAR VOLUME 93.1 fl (80.0-96.0); RED BLOOD COUNT 3.35 10^6/uL (4.30-6.10); WHITE BLOOD COUNT 10.3 10^3/uL (4.0-10.0)
[2024-06-26 06:36] LABS: PLATELET COUNT, AUTOMATED 59 10^3/uL (150-450)
[2024-06-26 06:38] LABS: BLOOD UREA NITROGEN 14 MG/DL (9-23); CALCIUM LEVEL 8.2 MG/DL (8.3-10.6); CARBON DIOXIDE LEVEL 33 MMOL/L (20-31); CHLORIDE LEVEL 103 MMOL/L (98-107); CREATININE FOR GFR 0.86 MG/DL (0.70-1.30); GLOMERULAR FILTRATION RATE > 60.0 (>35); GLUCOSE, FASTING 91 MG/DL (74-106); POTASSIUM SERUM 4.5 MMOL/L (3.5-5.1); SODIUM LEVEL 138 MMOL/L (136-145)
[2024-06-26] MEDS: SENNA 8.6 MG TAB (SENOKOT) PO SCH (10:00)
[2024-06-26] MEDS: MIRALAX *UNIT DOSE* 17GM PACKET PO SCH (10:01)
[2024-06-26 12:00] VITALS: BP 112/65; TEMP 97.5; O2SAT 96
[2024-06-26] MEDS ORDERED: MIRA33506 PO (13:33)
[2024-06-26] MEDS ORDERED: SUCR1ORA PO (13:33)
[2024-06-26] MEDS ORDERED: SENO8.6T5 PO (13:33)
[2024-06-26] MEDS ORDERED: ELIQ2.5T PO (13:33)
[2024-06-26] MEDS ORDERED: PANT40TA29 PO (13:33)
== END 2024-06-26 14:19 | disposition home health service (06) | DRG 253 ==
LOC: M ED 11:08 → EDBD 11:08 → M ED INP 18:38 → M ICU 20:25 → M PCU 06-23 05:19 → M MSPAV 06-25 16:09
PROVIDERS: ADMIT Internal Medicine Pulmonary Disease; ATTEND Student in an Organized Health Care Education/Training Program
PROC: 0DJD8ZZ Inspection of Lower Intestinal Tract, Via Natural or Artificial Opening Endoscopic (ICD-10-PCS; 2024-06-20)
PROC: 30233N1 Transfusion of Nonautologous Red Blood Cells into Peripheral Vein, Percutaneous Approach (ICD-10-PCS; 2024-06-22)
PROC: B246ZZZ Ultrasonography of Right and Left Heart (ICD-10-PCS; 2024-06-22)
PROC: 0DB78ZX Excision of Stomach, Pylorus, Via Natural or Artificial Opening Endoscopic, Diagnostic (ICD-10-PCS; principal; 2024-06-22 08:00)
DX: K92.2 Gastrointestinal hemorrhage, unspecified (principal); J18.9 Pneumonia, unspecified organism; J44.0 Chronic obstructive pulmonary disease with (acute) lower respiratory infection; I27.20 Pulmonary hypertension, unspecified; E27.40 Unspecified adrenocortical insufficiency; D69.6 Thrombocytopenia, unspecified; I95.9 Hypotension, unspecified; I48.91 Unspecified atrial fibrillation; N32.81 Overactive bladder; K44.9 Diaphragmatic hernia without obstruction or gangrene; E87.6 Hypokalemia; Z79.01 Long term (current) use of anticoagulants; Z79.52 Long term (current) use of systemic steroids; Z79.899 Other long term (current) drug therapy; Z88.0 Allergy status to penicillin; Z87.891 Personal history of nicotine dependence; D62 Acute posthemorrhagic anemia

== ENCOUNTER → 2024-07-04 | Outpatient (REF) | payer BC ==
[~2024-07-04] MED LIST changes: +ELIQ2.5T PO; +MIRA33506 PO; +PANT40TA29 PO; +PRED10TA2 PO; +SENO8.6T5 PO; +SUCR1ORA PO
[2024-07-04 13:40] LABS: BASO % 0.1 % (0.0-1.0); EOS % 0.2 % (0.0-3.0); HEMATOCRIT 39.8 % (42.0-52.0); HEMOGLOBIN 12.8 g/dl (13.5-17.5); LYMPH # 0.9 10^3/uL (1.5-5.0); MEAN CORPUSCULAR HGB CONC 32.2 g/dl (32.0-36.5); MEAN CORPUSCULAR VOLUME 93.4 fl (80.0-96.0); MONO # 0.8 10^3/uL (0.0-0.8); MONO % 7.9 % (2.0-8.0); NEUTROPHILS # 8.9 10^3/uL (1.5-8.5); PLATELET COUNT, AUTOMATED 112 10^3/uL (150-450); RED BLOOD COUNT 4.26 10^6/uL (4.30-6.10); WHITE BLOOD COUNT 10.7 10^3/uL (4.0-10.0)
== END ==
LOC: M SFHCADAM 13:06
PROVIDERS: ATTEND Family Medicine
DX: Z87.19 Personal history of other diseases of the digestive system (principal)

== ENCOUNTER → 2024-07-21 | Outpatient (REF) | payer BC ==
[2024-07-21 15:30] LABS: HEMATOCRIT 37.6 % (42.0-52.0); HEMOGLOBIN 11.9 g/dl (13.5-17.5)
== END ==
LOC: M SFHCADAM 11:02
PROVIDERS: ATTEND Family Medicine
DX: Z87.19 Personal history of other diseases of the digestive system (principal)

== ENCOUNTER → 2024-07-25 | Outpatient (REF) | payer BC ==
[2024-07-25 19:01] LABS: HEMATOCRIT 37.6 % (42.0-52.0); HEMOGLOBIN 11.9 g/dl (13.5-17.5)
== END ==
LOC: M SFHCADAM 13:05
PROVIDERS: ATTEND Family Medicine
DX: Z87.19 Personal history of other diseases of the digestive system (principal)

== ENCOUNTER → 2024-07-29 | Outpatient (REF) | payer BC ==
[2024-07-29 18:11] LABS: ALBUMIN 2.8 G/DL (3.2-5.2); ALKALINE PHOSPHATASE 68 U/L (40-129); ALT/SGPT 22 U/L (7.0-40); AST/SGOT 26 U/L (<34); BILIRUBIN,TOTAL 0.7 MG/DL (0.3-1.2); BLOOD UREA NITROGEN 22 MG/DL (9-23); CALCIUM LEVEL 8.6 MG/DL (8.3-10.6); CARBON DIOXIDE LEVEL 32 MMOL/L (20-31); CHLORIDE LEVEL 101 MMOL/L (98-107); CREATININE FOR GFR 0.91 MG/DL (0.70-1.30); GLOMERULAR FILTRATION RATE > 60.0 (>35); GLUCOSE, FASTING 97 MG/DL (74-106); POTASSIUM SERUM 4.7 MMOL/L (3.5-5.1); SODIUM LEVEL 145 MMOL/L (136-145)
== END ==
LOC: M SFHCADAM 10:53
PROVIDERS: ATTEND Family Medicine
DX: R60.0 Localized edema (principal)

== ENCOUNTER → 2024-08-13 | Outpatient (REF) | payer BC ==
[2024-08-13 18:45] LABS: ALBUMIN 3.2 G/DL (3.2-5.2); ALKALINE PHOSPHATASE 93 U/L (40-129); ALT/SGPT < 9 U/L (7.0-40); AST/SGOT 14 U/L (<34); BILIRUBIN,TOTAL 0.6 MG/DL (0.3-1.2); BLOOD UREA NITROGEN 21 MG/DL (9-23); CALCIUM LEVEL 8.8 MG/DL (8.3-10.6); CARBON DIOXIDE LEVEL 35 MMOL/L (20-31); CHLORIDE LEVEL 98 MMOL/L (98-107); CREATININE FOR GFR 0.98 MG/DL (0.70-1.30); GLOMERULAR FILTRATION RATE > 60.0 (>35); GLUCOSE, FASTING 99 MG/DL (74-106); POTASSIUM SERUM 3.5 MMOL/L (3.5-5.1); SODIUM LEVEL 141 MMOL/L (136-145); TOTAL PROTEIN 6.5 G/DL (5.7-8.2)
== END ==
LOC: M SFHCADAM 11:42
PROVIDERS: ATTEND Family Medicine
DX: R60.0 Localized edema (principal)

== ENCOUNTER → 2024-10-03 | Outpatient (CLI) | payer BC | LOC: M PLAIMG 08:15 | PROVIDERS: ATTEND Internal Medicine Pulmonary Disease | DX: R91.8 Other nonspecific abnormal finding of lung field (principal); J44.9 Chronic obstructive pulmonary disease, unspecified; J98.4 Other disorders of lung ==

== ENCOUNTER → 2025-02-04 | Outpatient (CLI) | payer BC ==
[~2025-02-04] MED LIST changes: +MAGN400O74 PO; -MILKSUS5 PO; +SENN-225 PO; -SENO8.6T5 PO; +TAMS-18 PO
== END ==
LOC: M PLAIMG 09:29
PROVIDERS: ATTEND Internal Medicine Pulmonary Disease
DX: R91.8 Other nonspecific abnormal finding of lung field (principal)

== ENCOUNTER → 2025-03-02 | Outpatient (REF) | payer BC ==
[2025-03-02 18:36] LABS: ALT/SGPT 30.0 U/L (7.0-40); AST/SGOT 18.0 U/L (<34); CALCIUM LEVEL 8.3 MG/DL (8.3-10.6); CARBON DIOXIDE LEVEL 30.0 MMOL/L (20-31); CHLORIDE LEVEL 100.0 MMOL/L (98-107); CREATININE FOR GFR 0.93 MG/DL (0.70-1.30); GLOMERULAR FILTRATION RATE 80.0 (>35); POTASSIUM SERUM 4.2 MMOL/L (3.5-5.1); SODIUM LEVEL 137.0 MMOL/L (136-145)
[2025-03-02 18:39] LABS: BASO # 0.0 10^3/uL (0.0-0.2); BASO % 0.3 % (0.0-1.0); EOS # 0.0 10^3/uL (0.0-0.5); EOS % 0.0 % (0.0-3.0); LYMPH # 0.3 10^3/uL (1.5-5.0); LYMPH % 2.2 % (24.0-44.0); MONO # 0.4 10^3/uL (0.0-0.8); MONO % 2.9 % (2.0-8.0); NEUTROPHILS # 12.9 10^3/uL (1.5-8.5); NEUTROPHILS % 92.6 % (36.0-66.0); PLATELET COUNT, AUTOMATED 122 10^3/uL (150-450)
== END ==
LOC: M SFHCADAM 12:37
PROVIDERS: ATTEND Family Medicine
DX: I50.9 Heart failure, unspecified (principal)

== ENCOUNTER → 2025-03-02 | Outpatient (CLI) | payer BC | LOC: M ADAMS 13:17 | PROVIDERS: ATTEND Family Medicine | DX: I50.9 Heart failure, unspecified (principal) ==

== ENCOUNTER → 2025-03-17 | Outpatient (CLI) | payer BC | LOC: M ADAMS 09:29 | PROVIDERS: ATTEND Physician Assistant Medical | DX: I50.9 Heart failure, unspecified (principal) ==

== ENCOUNTER → 2025-03-17 | Outpatient (REF) | payer BC ==
[2025-03-17 15:03] LABS: ALT/SGPT 10.0 U/L (7.0-40); AST/SGOT 14.0 U/L (<34); CALCIUM LEVEL 8.4 MG/DL (8.3-10.6); CARBON DIOXIDE LEVEL 33.0 MMOL/L (20-31); CHLORIDE LEVEL 98.0 MMOL/L (98-107); CREATININE FOR GFR 1.19 MG/DL (0.70-1.30); GLOMERULAR FILTRATION RATE 59.5 (>35); POTASSIUM SERUM 3.4 MMOL/L (3.5-5.1); SODIUM LEVEL 138.0 MMOL/L (136-145)
[2025-03-17 15:10] LABS: BASO # 0.0 10^3/uL (0.0-0.2); BASO % 0.1 % (0.0-1.0); EOS # 0.0 10^3/uL (0.0-0.5); EOS % 0.1 % (0.0-3.0); LYMPH # 0.9 10^3/uL (1.5-5.0); LYMPH % 11.4 % (24.0-44.0); MONO # 0.8 10^3/uL (0.0-0.8); MONO % 9.2 % (2.0-8.0); NEUTROPHILS # 6.4 10^3/uL (1.5-8.5); NEUTROPHILS % 77.8 % (36.0-66.0); PLATELET COUNT, AUTOMATED 127 10^3/uL (150-450)
== END ==
LOC: M SFHCADAM 08:55
PROVIDERS: ATTEND Physician Assistant Medical
DX: I50.9 Heart failure, unspecified (principal); I48.91 Unspecified atrial fibrillation

== ENCOUNTER → 2025-03-26 | Outpatient (REF) | payer BC ==
[2025-03-26 13:55] LABS: CALCIUM LEVEL 9.2 MG/DL (8.3-10.6); CARBON DIOXIDE LEVEL 34.0 MMOL/L (20-31); CHLORIDE LEVEL 97.0 MMOL/L (98-107); CREATININE FOR GFR 1.35 MG/DL (0.70-1.30); GLOMERULAR FILTRATION RATE 51.1 (>35); POTASSIUM SERUM 4.7 MMOL/L (3.5-5.1); SODIUM LEVEL 139.0 MMOL/L (136-145)
== END ==
LOC: M SFHCADAM 08:25
PROVIDERS: ATTEND Family Medicine
DX: E87.6 Hypokalemia (principal)

== ENCOUNTER → 2025-03-30 | Outpatient (CLI) | payer BC ==
[~2025-03-30] MED LIST changes: +ISOVUE-370 76% 100 ML VIAL ONE
== END ==
LOC: M PLAIMG 11:47
PROVIDERS: ATTEND Family Medicine
DX: R93.89 Abnormal findings on diagnostic imaging of other specified body structures (principal)

== ENCOUNTER → 2025-04-02 | Outpatient (REF) | payer BC ==
[~2025-04-02] MED LIST changes: -ISOVUE-370 76% 100 ML VIAL ONE
[2025-04-02 16:47] LABS: BASO # 0.0 10^3/uL (0.0-0.2); BASO % 0.2 % (0.0-1.0); EOS # 0.0 10^3/uL (0.0-0.5); EOS % 0.2 % (0.0-3.0); LYMPH # 1.4 10^3/uL (1.5-5.0); LYMPH % 17.5 % (24.0-44.0); MONO # 1.0 10^3/uL (0.0-0.8); MONO % 12.5 % (2.0-8.0); NEUTROPHILS # 5.6 10^3/uL (1.5-8.5); NEUTROPHILS % 69.0 % (36.0-66.0); PLATELET COUNT, AUTOMATED 124 10^3/uL (150-450)
== END ==
LOC: M SFHCADAM 13:27
PROVIDERS: ATTEND Family Medicine
DX: R06.00 Dyspnea, unspecified (principal)

== ENCOUNTER → 2025-04-29 | Outpatient (REF) | payer BC ==
[2025-04-29 14:16] LABS: ALT/SGPT 10.0 U/L (7.0-40); AST/SGOT 16.0 U/L (<34); CALCIUM LEVEL 8.1 MG/DL (8.3-10.6); CARBON DIOXIDE LEVEL 27.0 MMOL/L (20-31); CHLORIDE LEVEL 105.0 MMOL/L (98-107); CREATININE FOR GFR 1.03 MG/DL (0.70-1.30); GLOMERULAR FILTRATION RATE 70.3 (>35); POTASSIUM SERUM 5.1 MMOL/L (3.5-5.1); SODIUM LEVEL 140.0 MMOL/L (136-145)
== END ==
LOC: M SFHCADAM 10:39
PROVIDERS: ATTEND Family Medicine
DX: I50.9 Heart failure, unspecified (principal)

== ENCOUNTER → 2025-05-01 | Outpatient (CLI) | payer BC | LOC: M PLAIMG 10:11 | PROVIDERS: ATTEND Internal Medicine Pulmonary Disease | DX: R91.8 Other nonspecific abnormal finding of lung field (principal); R59.0 Localized enlarged lymph nodes ==

== ENCOUNTER → 2025-06-16 | Outpatient (REF) | payer BC ==
[~2025-06-16] MED LIST changes: +POTA-232 PO; -POTA10TA67 PO
[2025-06-16 17:11] LABS: BASO # 0.0 10^3/uL (0.0-0.2); BASO % 0.1 % (0.0-1.0); EOS # 0.0 10^3/uL (0.0-0.5); EOS % 0.2 % (0.0-3.0); LYMPH # 1.0 10^3/uL (1.5-5.0); LYMPH % 9.6 % (24.0-44.0); MONO # 1.6 10^3/uL (0.0-0.8); MONO % 15.1 % (2.0-8.0); NEUTROPHILS # 7.8 10^3/uL (1.5-8.5); NEUTROPHILS % 74.2 % (36.0-66.0); PLATELET COUNT, AUTOMATED 111 10^3/uL (150-450)
[2025-06-16 17:42] LABS: ALT/SGPT < 9 U/L (7.0-40); AST/SGOT 20 U/L (<34); CALCIUM LEVEL 8.7 MG/DL (8.3-10.6); CARBON DIOXIDE LEVEL 32 MMOL/L (20-31); CHLORIDE LEVEL 96 MMOL/L (98-107); CREATININE FOR GFR 1.12 MG/DL (0.70-1.30); GLOMERULAR FILTRATION RATE 63.6 (>35); POTASSIUM SERUM 3.7 MMOL/L (3.5-5.1); SODIUM LEVEL 137 MMOL/L (136-145)
[2025-06-16 17:43] LABS: FREE T4 1.24 NG/DL (0.89-1.76)
== END ==
LOC: M SFHCADAM 13:24
PROVIDERS: ATTEND Family Medicine
DX: R07.9 Chest pain, unspecified (principal); R19.7 Diarrhea, unspecified; R53.1 Weakness; R06.02 Shortness of breath; R60.0 Localized edema

== ENCOUNTER → 2025-06-16 | Outpatient (CLI) | payer BC | LOC: M ADAMS 13:40 | PROVIDERS: ATTEND Family Medicine | DX: R07.9 Chest pain, unspecified (principal); R19.7 Diarrhea, unspecified; R53.1 Weakness; R60.0 Localized edema; R06.02 Shortness of breath ==